=== PATIENT | male | born 1960 | race Caucasian/White ===

== ENCOUNTER 2019-06-19 12:41 | Inpatient (IN) | payer OTHER ==
--- NOTE | 2019-06-19 13:43 | PDOC ---
History of Present Illness - General Chief Complaint: Wound Stated Complaint: SENT FOR ADMISSION Time Seen by Provider: 06/19/19 13:06 History Source: Patient, Other (Paperwork from Podiatry clinic) Exam Limitations: No Limitations - History of Present Illness Initial Comments: HPI: 58 y/o male presenting to [facility] ER from podiatry clinic of [facility] for admission for osteomyelitis of right third toe. Pt states its getting worse. Denies systemc infectious symptoms. Has completed two week outpatient course of Ciprofloxacin and Clindamycin without improvement. Pt has no established relationship with any providers within the [facility] system. Recently moved to this area. Previous care was established at hospital in [place]. Medical Hx: - Diabetic, managed with Metformin and Glimepiride - HTN - HLD - Charcot R foot - S/p amputation of R first and second toe - S/p amputation of L second toe Review of Systems: In addition to that documented in the HPI above, the additional ROS was obtained : Constitutional: Denies fevers or chills ENMT: Denies sore throat CV: Denies chest pain Resp: Denies SOB GI: Denies vomiting or diarrhea : Denies dysuria, hematuria, or urinary frequency Physical Examination: Constitutional: Nontoxic adult male in no acute distress or obvious discomfort. Obese body habitus. Found semi-fowlers on hospital bed. Alert and oriented x4. Answered all questions appropriately and completely. Speech was non-labored, non -pressured. Head: Normocephalic. No obvious external signs of trauma. Cardiovascular / Chest: Regular rate and regular rhythm. No murmur, rubs, clicks , or gallops. Peripheral pulses: radial pulses full. Respiratory: Breathing unlabored. Equal chest rise and fall. Clear to auscultation bilaterally. No stridor, no wheezing, no rhonchi. Neuro: Alert and oriented. Moving all four extremities spontaneously. Skin/ MSK: Approx. 1cm x 1cm wound to lateral aspect of R 3rd toe with purulent discharge. Approx. 4cm x 2cm wound to lateral aspect of R foot with devitalized tissue surrounding; no discharge or surrounding erythema. S/p R 1st and 2nd toe amputation. S/p L 2nd toe amputation. Globally, skin is warm and dry. Psych: Affect: appropriate. Mood: normal. MDM: *Reviewed vital signs, nursing notes, and prior visit documentation (if available). 58 y/o male presenting from podiatry clinic for right 3rd toe infection concerning for osteomyelitis. Failed outpatient abx therapy. Afebrile orally. Vitals unremarkable for hypotension or tachycardia. Physical exam as described above. CRP elevated. CBC unremarkable for leukocytosis. Started Vancomycin and Meropenem. Pt has penicillin allergy. 14:[address] Stokes. Verbally appraised of the pts HPI, ED course, and current plan of management. Requested Greta Garcia, and Natanael consulted on the case. Will evaluate the pt this evening. 14:[address] Santoyo through office staff. Awaiting call back. 15:[address] Santoyo through office staff. Awaiting call back. 15:[address] Lin cell phone for admission. Awaiting call back. 16:[address] Santoyo. Verbally appraised of the pts HPI, ED course, and current plan of management. Will admit pt to med/surg. No additional orders requested. Uche Liriano M.D., PGY2 Emergency Medicine Resident Past History - Past Medical History Allergies/Adverse Reactions: Allergies Allergy/AdvReac Type Severity Reaction Status Date / Time Penicillins Allergy Severe Difficulty Verified 06/19/19 13:01 Breathing COPD: No Diabetes: Yes HTN: Yes - Suicide/Smoking/Psychosocial Hx Smoking History: Former smoker Have you smoked in the past 12 months: No Information on smoking cessation initiated: No Hx Alcohol Use: No Drug/Substance Use Hx: No *Physical Exam - Vital Signs Last Vital Signs Temp Pulse Resp BP Pulse Ox 99.2 F 99 H 20 161/92 100 06/19/19 12:57 06/19/19 12:57 06/19/19 12:57 06/19/19 12:57 06/19/19 12:57 ED Treatment Course - LABORATORY CBC & Chemistry Diagram: 06/19/19 13:40 06/19/19 13:40 - RADIOLOGY Radiology Studies Ordered: Category Date Time Status CHEST PA & LAT [RAD] Stat Radiology 06/19/19 13:20 Ordered *DC/Admit/Observation/Transfer Diagnosis at time of Disposition: Diabetic infection of right foot - Discharge Dispostion Condition at time of disposition: Stable Decision to Admit order: Yes - Referrals - Patient Instructions - Post Discharge Activity
[2019-06-19 14:06] LABS: BASO % 0.9 % (0-2.0); EOS % 2.2 % (0-4.5); HEMATOCRIT 38.8 % (35.4-49); HEMOGLOBIN 13.3 GM/dL (11.7-16.9); MCH 28.2 pg (25.7-33.7); MCHC 34.1 g/dl (32.0-35.9); MEAN CELL VOLUME 82.7 fl (80-96); MEAN PLT VOLUME 7.5 fl (7.5-11.1); MONO % 7.6 % (3.8-10.2); NEUT % 63.3 % (42.8-82.8); RBC 4.69 M/mm3 (4.00-5.60); RDW 13.6 % (11.9-15.9); WHITE BLOOD COUNT 7.3 K/mm3 (4.0-10.0)
[2019-06-19] MEDS ORDERED: VANCOMYCIN HCL 1,500 MG in DEXTROSE 5%-WATER - 500 ML IVPB ONE (14:14)
[2019-06-19] MEDS ORDERED: MEROPENEM 1 GM in DEXTROSE 5%-WATER 100 ML IVPB ONE (14:14)
[2019-06-19 14:28] LABS: INR 1.02 (0.83-1.09)
[2019-06-19 14:31] LABS: ALBUMIN 3.6 g/dl (3.4-5.0); BILIRUBIN,TOTAL 0.4 mg/dL (0.2-1); BLOOD UREA NITROGEN 23.6 mg/dL (7-18); CALCIUM 9.5 mg/dL (8.5-10.1); CREATININE 1.1 mg/dL (0.55-1.3); PLATELET COUNT 377 K/MM3 (134-434); POTASSIUM 4.7 mmol/L (3.5-5.1); TOT PROT 7.2 g/dl (6.4-8.2)
[2019-06-19] MEDS ORDERED: VANCOMYCIN HCL 1,500 MG in SODIUM CHLORIDE 500 ML IVPB ONE (15:15)
--- NOTE | 2019-06-19 16:59 | PDOC ---
Documentation entered by Kamini García SCRIBE, acting as scribe for Dewayne Jaime MD. Dewayne Jaime MD: This documentation has been prepared by the bashiribe, Kamini García SCRIBE, under my direction and personally reviewed by me in its entirety. I confirm that the documentation accurately reflects all work, treatment, procedures, and medical decision making performed by me. Attending Attestation - Resident Resident Name: Uche Liriano - ED Attending Attestation I have performed the following: I have examined & evaluated the patient, The case was reviewed & discussed with the resident, I agree w/resident's findings & plan, Exceptions are as noted - HPI HPI: 06/19/19 14:26 The patient is a 58-year-old male, with a past medical history of HTN and DM, who was sent to the ED with by his Edger Hand (Dr. Lerma) for admission for osteomyelitis of the RT 2nd toe with exposed bone. Allergies: Penicillins - Physicial Exam PE: Patient is awake and alert, obese, No distress Normocephalic and atraumatic PERRLA, EOMI CTA RRR + Right foot: 1 cm wound to the third toe draining purulent discharge consistent with osteomyelitis; devitalized tissue to the lateral aspect of the right foot appears to be necrotic; status post left second toe amputation; distal pulses decreased bilaterally - Medical Decision Making 06/19/19 16:58 58-year-old male with multiple comorbidities, history of previous toe amputations presents with signs and symptoms of acute osteomyelitis. ESR and CRP elevated. Blood cultures obtained. We'll cover with broad-spectrum antibiotics. Will admit with ID and podiatry consultation.
--- NOTE | 2019-06-19 18:28 | CONSULT ---
Consult Consult Specialty:: Podiatry Reason for Consultation:: Wound right foot - History of Present Illness Chief Complaint: Patient states that his doctor Florentin stated that the 3rd toe must go on right foot. States he trusts her Judgement more than mine. 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 Patient told me his Doctor is on iiko which has gone to the "dogs " he stated. She is trying to get on staff here. History of Present Illness: 58 y/o male presenting to [facility] ER from podiatry clinic of [facility] for admission for osteomyelitis of right toe most likely the 2nd eventhough patient stating 3rd. . Pt states its getting worse. Denies systemc infectious symptoms. Has completed two week outpatient course of Ciprofloxacin and Clindamycin without improvement. - Alcohol/Substance Use Hx Alcohol Use: No - Smoking History Smoking history: Former smoker Have you smoked in the past 12 months: No Home Medications - Allergies Allergies/Adverse Reactions: Allergies Allergy/AdvReac Type Severity Reaction Status Date / Time Penicillins Allergy Severe Difficulty Verified 06/19/19 13:01 Breathing - Home Medications Home Medications: Ambulatory Orders Aspirin [ASA -] 81 mg PO DAILY 06/19/19 Glimepiride 4 mg PO DAILY 06/19/19 Lisinopril 10 mg PO DAILY 06/19/19 Metformin HCl [Glucophage] 1,000 mg PO BID 06/19/19 Pravastatin Sodium 20 mg PO DAILY 06/19/19 Physical Exam Vital Signs: Vital Signs Temperature 98.6 F 06/19/19 17:04 Pulse Rate 105 H 06/19/19 17:04 Respiratory Rate 12 06/19/19 17:04 Blood Pressure 104/77 06/19/19 17:04 O2 Sat by Pulse Oximetry (%) 95 06/19/19 17:04 Extremities: Yes: Other (weakly palpable pulses right foot, +open wound lateral right most medial toe it appears that is his second toe, no wound on 3rd or 4th , missing lateral aspect of foot and part of medial aspect of foot, -gangarene, warm right foot, missing toe left foot as well, +grade 3 wound laterlal right foot with drainage noted) Labs: CBC, BMP 06/19/19 13:40 06/19/19 13:40 Assessment/Plan om right foot toe and or midfoot lateral area deformed right foot r/o pvd Consult ID for abx. Consult Dr. Stallworth for vascular work up and treatment. Xray ordered. Will order MRI as well. HBO consult as well. Will decide tx after xray, mri and vascular and ID input. Patient insisting needs his 3rd toe amputated.
[2019-06-19] MEDS: COLLAGENASE CLOSTRIDIUM HIST. 30 GRAMS TUBE TP SCH (19:50)
[2019-06-19] MEDS ORDERED: diazePAM 2 MG TABLET PO ONE (20:14)
[2019-06-19] MEDS ORDERED: diazePAM 2 MG TABLET ONE (20:16)
[2019-06-19] MEDS ORDERED: VANCOMYCIN 1 GM in D5W (PRE-DOCKED) 1,000 MG/250 ML IVPB SCH (22:00)
--- NOTE | 2019-06-19 23:30 | EKG ---
Test Reason : Blood Pressure : / mmHG Vent. Rate : 107 BPM Atrial Rate : 107 BPM P-R Int : 136 ms QRS Dur : 130 ms QT Int : 348 ms P-R-T Axes : 036 137 026 degrees QTc Int : 464 ms SINUS TACHYCARDIA INDETERMINATE AXIS RIGHT BUNDLE BRANCH BLOCK CANNOT RULE OUT INFERIOR INFARCT , AGE UNDETERMINED ABNORMAL ECG NO PREVIOUS ECGS AVAILABLE Confirmed by ROSS ROJO MD ([id number]) on 06/19/2019 11:30:33 PM Referred By: Confirmed By:ROSS ROJO MD
--- NOTE | 2019-06-19 23:34 | HP ---
Admitting History and Physical - Admission History of Present Illness: Pt is a 58 y/o male w/ PMH significant for HTN, HLD, diabetes, charcot RT foot and history of amputation of Lt 3rd toe/rt 1st/2nd toes. Pt now presents to [facility] ER from podiatry clinic of [facility] for admission for osteomyelitis of right third toe. Pt states its getting worse. Denies systemc infectious symptoms. Has completed two week outpatient course of Ciprofloxacin and Clindamycin without improvement. - Past Medical History Cardiovascular: Yes: HTN, Hyperlipdemia Rheumatology: Yes: Other (charcot rt foot) Endocrine: Yes: Diabetes Mellitus - Past Surgical History Additional Past Surgical History: Amputations lt 3rd toe and Rt 1st/2nd toes - Smoking History Smoking history: Former smoker Have you smoked in the past 12 months: No - Alcohol/Substance Use Hx Alcohol Use: No Home Medications - Allergies Allergies/Adverse Reactions: Allergies Allergy/AdvReac Type Severity Reaction Status Date / Time Penicillins Allergy Severe Difficulty Verified 06/19/19 13:01 Breathing - Home Medications Home Medications: Ambulatory Orders Aspirin [ASA -] 81 mg PO DAILY 06/19/19 Glimepiride 4 mg PO DAILY 06/19/19 Lantus 20 units HS 06/19/19 Lisinopril 10 mg PO DAILY 06/19/19 Metformin HCl [Glucophage] 1,000 mg PO BID 06/19/19 Pravastatin Sodium 20 mg PO DAILY 06/19/19 Family Disease History - Family Disease History Family History: Unremarkable Review of Systems - Review of Systems Constitutional: reports: No Symptoms Eyes: reports: No Symptoms HENT: reports: No Symptoms Neck: reports: No Symptoms Cardiovascular: reports: No Symptoms Respiratory: reports: No Symptoms Gastrointestinal: reports: No Symptoms Genitourinary: reports: No Symptoms Physical Examination Vital Signs: Vital Signs Temperature 98.6 F 06/19/19 17:04 Pulse Rate 90 06/19/19 20:33 Respiratory Rate 20 06/19/19 20:33 Blood Pressure 142/90 06/19/19 20:33 O2 Sat by Pulse Oximetry (%) 97 06/19/19 20:33 Constitutional: Yes: Well Nourished, Obese Eyes: Yes: WNL HENT: Yes: WNL Neck: Yes: WNL, Supple Cardiovascular: Yes: WNL, Regular Rate and Rhythm Respiratory: Yes: WNL, Regular, CTA Bilaterally Gastrointestinal: Yes: WNL, Normal Bowel Sounds, Soft Extremities: Yes: Other (Lt 3rd toe amputations Rt 1st/2nd toe amputation Rt 3rd toe w/ ulcer) Edema: No Labs: CBC, BMP 06/19/19 13:40 06/19/19 13:40 Problem List - Problems (1) Diabetic infection of right foot Assessment/Plan: Cont IV antibxs Monitor cultures ID/Podiatry consults F/U MRI rt foot to r/o osteomyelitis Code(s): E11.628 - TYPE 2 DIABETES MELLITUS WITH OTHER SKIN COMPLICATIONS; L08.9 - LOCAL INFECTION OF THE SKIN AND SUBCUTANEOUS TISSUE, UNSP (2) HTN (hypertension) Assessment/Plan: BP stable Cont asa/lisinopril Code(s): I10 - ESSENTIAL (PRIMARY) HYPERTENSION (3) HLD (hyperlipidemia) Assessment/Plan: Cont lipitor Code(s): E78.5 - HYPERLIPIDEMIA, UNSPECIFIED (4) Diabetes Assessment/Plan: Cont levemir/amaryl/metformin Cont sliding scale w/ coverage Code(s): E11.9 - TYPE 2 DIABETES MELLITUS WITHOUT COMPLICATIONS
[2019-06-19] MEDS: HEPARIN NA (PORCINE) 5,000 UNITS/ML 1ML VIAL SQ SCH (23:39)
[2019-06-19] MEDS: INSULIN (LEVEMIR) 100 UNITS/ML UNITS SQ SCH (23:39)
[2019-06-19] MEDS: ATORVASTATIN CA 20 MG TABLET (FP) PO SCH (23:39)
[2019-06-19] MEDS: INSULIN SLIDING SCALE (NOVOLOG) 1 VIAL SQ SCH (23:40)
[2019-06-20] MEDS: VANCOMYCIN 1 GM in D5W (PRE-DOCKED) 1,000 MG/250 ML IVPB SCH ×2 (00:27→09:06)
[2019-06-20] MEDS ORDERED: MEROPENEM 1 GM in DEXTROSE 5%-WATER 100 ML IVPB SCH (02:00)
[2019-06-20] MEDS ORDERED: MEROPENEM 1 GM VIAL (RESTRICTED TO ID) IVPB ONE ×2 (02:02→08:58)
[2019-06-20] MEDS ORDERED: DEXTROSE 5%-WATER 100 ML IVPB ONE ×2 (02:02→08:58)
[2019-06-20] MEDS: MEROPENEM 1 GM in DEXTROSE 5%-WATER 100 ML IVPB SCH ×2 (02:09→09:06)
[2019-06-20] MEDS: INSULIN SLIDING SCALE (NOVOLOG) 1 VIAL SQ SCH ×4 (06:57→21:36)
[2019-06-20 07:54] LABS: BASO % 0.8 % (0-2.0); EOS % 2.9 % (0-4.5); HEMATOCRIT 36.1 % (35.4-49); HEMOGLOBIN 12.3 GM/dL (11.7-16.9); LYMPH % 30.7 % (8-40); MCH 28.3 pg (25.7-33.7); MEAN CELL VOLUME 83.2 fl (80-96); MEAN PLT VOLUME 7.7 fl (7.5-11.1); MONO % 9.1 % (3.8-10.2); NEUT % 56.5 % (42.8-82.8); PLATELET COUNT 306 K/MM3 (134-434); RBC 4.34 M/mm3 (4.00-5.60); RDW 13.5 % (11.9-15.9); WHITE BLOOD COUNT 6.9 K/mm3 (4.0-10.0)
[2019-06-20 08:29] LABS: ALBUMIN 3.1 g/dl (3.4-5.0); BILIRUBIN,TOTAL 0.4 mg/dL (0.2-1); BLOOD UREA NITROGEN 21.6 mg/dL (7-18); CALCIUM 8.9 mg/dL (8.5-10.1); CREATININE 0.9 mg/dL (0.55-1.3); POTASSIUM 4.2 mmol/L (3.5-5.1); TOT PROT 6.3 g/dl (6.4-8.2)
[2019-06-20] MEDS ORDERED: PT OWN MED DRAWER 7, Y5N ONE (09:00)
[2019-06-20] MEDS: GLIMEPIRIDE 4 MG TABLET (FP) PO SCH (09:05)
[2019-06-20] MEDS: HEPARIN NA (PORCINE) 5,000 UNITS/ML 1ML VIAL SQ SCH ×2 (09:05→21:38)
[2019-06-20] MEDS: LISINOPRIL 10 MG TABLET (FP) PO SCH (09:06)
[2019-06-20] MEDS: metFORMIN HCL 500 MG TABLET (FP) PO SCH ×2 (09:06→17:44)
[2019-06-20] MEDS: ASPIRIN 81 MG CHEWABLE TABLETS PO SCH (09:06)
[2019-06-20] MEDS: COLLAGENASE CLOSTRIDIUM HIST. 30 GRAMS TUBE TP SCH (09:16)
--- NOTE | 2019-06-20 09:35 | CON.ID ---
Consult Consult Specialty:: infectious diseases Referred by:: Reason for Consultation:: r/o osteo of the rt foot - History of Present Illness Chief Complaint: rt foot infection - Alcohol/Substance Use Hx Alcohol Use: Yes (occassionally) - Smoking History Smoking history: Former smoker Have you smoked in the past 12 months: No Home Medications - Allergies Allergies/Adverse Reactions: Allergies Allergy/AdvReac Type Severity Reaction Status Date / Time Penicillins Allergy Severe Difficulty Verified 06/19/19 13:01 Breathing - Home Medications Home Medications: Ambulatory Orders Aspirin [ASA -] 81 mg PO DAILY 06/19/19 Glimepiride 4 mg PO DAILY 06/19/19 Lantus 20 units HS 06/19/19 Lisinopril 10 mg PO DAILY 06/19/19 Metformin HCl [Glucophage] 1,000 mg PO BID 06/19/19 Pravastatin Sodium 20 mg PO DAILY 06/19/19 Physical Exam Vital Signs: Vital Signs Temperature 98.0 F 06/20/19 09:18 Pulse Rate 85 06/20/19 09:18 Respiratory Rate 19 06/20/19 09:18 Blood Pressure 150/76 06/20/19 09:18 O2 Sat by Pulse Oximetry (%) 97 06/19/19 20:33 Labs: CBC, BMP 06/20/19 06:25 06/20/19 06:25
--- NOTE | 2019-06-20 13:08 | PN ---
Progress Note (short form) - Note Progress Note: Vascular surgery Asked to evaluate patient for right 3rd toe ulcer/infection Patient seen and examined at bedside with Dr Stallworth. 58 y/o male presented to [facility] ER from podiatry clinic of [facility] for admission for osteomyelitis of right third toe. Pt states its getting worse. Denies systemc infectious symptoms. Has completed two week outpatient course of Ciprofloxacin and Clindamycin without improvement. Vital Signs Temp 98.0 F 06/20/19 09:18 Pulse 85 06/20/19 09:18 Resp 19 06/20/19 09:18 BP 150/76 06/20/19 09:18 Pulse Ox 97 06/19/19 20:33 Intake & Output 06/19/19 06/20/19 06/20/19 23:59 11:59 23:59 Intake Total 400 240 Balance 400 240 Weight 275 lb 275 lb Intake: Oral 400 240 Other: Voiding Method Toilet # Unmeasured Voids Void 1 Bowel Movement No Height 6 ft 2.5 in 6 ft 2.5 in Body Mass Index (BMI) 34.8 34.8 Weight Measurement Method Est/Stated by Patient CBC, BMP 06/20/19 06:25 06/20/19 06:25 PE: A&Ox3, NAD Unlabored resp on RA Extremities: diminished but palpable pulses right foot, small stage 2 ulcer at the right toe extending into the web space between the 3rd and 4th toes with no significant d/c or foul odor. He is missing his 1st and 2nd toes s/p amputation that are well healed. Stage 2 ulcer over the lateral aspect of his foot @ [id number], clean with fibrinous base, no significant d/c or foul odor. palpable DP pulse B/L LE compartments soft, supple and non-tender to palpation MRI Right LE: Abnormal signal in the proximal phalanx of the 3rd toe consistent with osteomyelitis Problem List - Problems (1) Osteomyelitis of ankle and foot Assessment/Plan: 58 yo male with Osetomyelitis of right 3rd toe in the setting of multiple stable DM foot ulcers. We discussed the diagnosis and treatment options with the patient. Although we have recommended conservative measures treating the OM with IV ABX and with ulcers with local wound care, the patient is adamant that he have this toe amputated. He is cleared from a vascular standpoint and may proceed with podiatry management/treatment as they see fit. 1) apply bacitracin to right foot wounds and cover with clean, dry dressing daily 2) off load pressure sensitive areas 3) fall risk 4) refer to Podiatry for further care 5) IV ABX per ID 6) re-consult vascular PRN Code(s): M86.9 - OSTEOMYELITIS, UNSPECIFIED
[2019-06-20] MEDS: VANCOMYCIN HCL 1,250 MG in DEXTROSE 5%-WATER - 250 ML IVPB SCH (13:25)
[2019-06-20] MEDS: BACITRACIN 15 GM TUBE TOPICAL OINTMENT TP SCH (13:42)
--- NOTE | 2019-06-20 16:16 | PN ---
Progress Note (short form) - Note Progress Note: FUV right foot. vss +om 3rd toe right on mri, +grade 3 wound, +drainage OM 3rd toe right Reviewed MRI and discussed with radiologist. Pt fully understands all risks benefits and alternatives. Consented to debridement of bone and soft tissue right foot and amputation 3rd toe. Suggested amputation of 4&5 due poor position and future wounds on those toes. Patient understood. Only wants 3rd toe amputated will take his chances with other 2 toes. Patient is scheduled for 3pm tomorrow. Please maximize for OR. Discussed with Dr. Stallworth and he has cleared patient at this point will put note in chart. NPO after midnight.
[2019-06-20] MEDS: ATORVASTATIN CA 20 MG TABLET (FP) PO SCH (21:37)
[2019-06-20] MEDS: INSULIN (LEVEMIR) 100 UNITS/ML UNITS SQ SCH (21:37)
[2019-06-20] MEDS ORDERED: ATORVASTATIN CA 10 MG TABLET (FP) PO SCH (22:00)
--- NOTE | 2019-06-20 22:35 | PN ---
Progress Note, Physician History of Present Illness: Pt opting for amputation rt 3rd toe - Current Medication List Current Medications: Active Medications Aspirin (Asa -) 81 mg PO DAILY [facility] Last Admin: 06/20/19 09:06 Dose: 81 mg Atorvastatin Calcium (Lipitor -) 20 mg PO HS [facility] Last Admin: 06/20/19 21:37 Dose: 20 mg Bacitracin (Bacitracin -) 1 applic TP DAILY [facility] Last Admin: 06/20/19 13:42 Dose: 1 applic Collagenase (Santyl -) 1 applic TP DAILY [facility]; Protocol Last Admin: 06/20/19 09:16 Dose: 1 applic Glimepiride (Amaryl -) 4 mg PO DAILY@0700 [facility] Last Admin: 06/20/19 09:05 Dose: 4 mg Heparin Sodium (Porcine) (Heparin -) 5,000 unit SQ BID [facility] Last Admin: 06/20/19 21:38 Dose: 5,000 unit Vancomycin HCl 1,250 mg/ (Dextrose) 250 mls @ 166.667 mls/hr IVPB DAILY@1100 [facility]; Protocol Last Admin: 06/20/19 13:25 Dose: 166.667 mls/hr Insulin Aspart (Novolog Vial Sliding Scale -) 1 vial SQ [facility]; Protocol Last Admin: 06/20/19 21:36 Dose: Not Given Insulin Detemir (Levemir Vial) 20 units SQ [facility] Last Admin: 06/20/19 21:37 Dose: Not Given Lisinopril (Prinivil) 10 mg PO DAILY [facility] Last Admin: 06/20/19 09:06 Dose: 10 mg Metformin [facility] ([facility]ophage -) [facility] Last Admin: 06/20/19 17:44 Dose: 1,000 mg - Objective Vital Signs: Vital Signs Temperature 98.4 F 06/20/19 21:42 Pulse Rate 75 06/20/19 21:42 Respiratory Rate 20 06/20/19 21:42 Blood Pressure 135/78 06/20/19 21:42 O2 Sat by Pulse Oximetry (%) 97 06/20/19 09:00 Constitutional: Yes: Well Nourished, Obese Eyes: Yes: WNL HENT: Yes: WNL Neck: Yes: WNL, Supple Cardiovascular: Yes: WNL, Regular Rate and Rhythm Respiratory: Yes: WNL, Regular, CTA Bilaterally Gastrointestinal: Yes: WNL, Normal Bowel Sounds, Soft, Abdomen, Obese Extremities: Yes: Other (Rt 3rd toe ulcer) Labs: CBC, BMP 06/20/19 06:25 06/20/19 06:25 INR, PTT INR 1.02 (0.83-1.09) 06/19/19 13:55 Problem List - Problems (1) Diabetic infection of right foot Assessment/Plan: Cont IV vanco Monitor cultures MRI Rt foot shows osteomyelitis Pt scheduled for amputation rt 3rd toe in am Pt is medically cleared for surgery Code(s): E11.628 - TYPE 2 DIABETES MELLITUS WITH OTHER SKIN COMPLICATIONS; L08.9 - LOCAL INFECTION OF THE SKIN AND SUBCUTANEOUS TISSUE, UNSP (2) HTN (hypertension) Assessment/Plan: BP stable Cont asa/lisinopril Code(s): I10 - ESSENTIAL (PRIMARY) HYPERTENSION (3) HLD (hyperlipidemia) Assessment/Plan: Cont lipitor Code(s): E78.5 - HYPERLIPIDEMIA, UNSPECIFIED (4) Diabetes Assessment/Plan: Cont levemir/amaryl/metformin Cont sliding scale w/ coverage Code(s): E11.9 - TYPE 2 DIABETES MELLITUS WITHOUT COMPLICATIONS
[2019-06-21] MEDS: GLIMEPIRIDE 4 MG TABLET (FP) PO SCH (06:23)
[2019-06-21] MEDS: INSULIN SLIDING SCALE (NOVOLOG) 1 VIAL SQ SCH ×4 (06:23→22:05)
[2019-06-21] MEDS: metFORMIN HCL 500 MG TABLET (FP) PO SCH ×2 (06:23→18:08)
[2019-06-21 07:11] LABS: BASO % 0.6 % (0-2.0); HEMATOCRIT 36.7 % (35.4-49); HEMOGLOBIN 12.8 GM/dL (11.7-16.9); LYMPH % 25.4 % (8-40); MCHC 34.9 g/dl (32.0-35.9); MEAN PLT VOLUME 7.6 fl (7.5-11.1); MONO % 8.4 % (3.8-10.2); NEUT % 62.6 % (42.8-82.8); PLATELET COUNT 290 K/MM3 (134-434); RBC 4.42 M/mm3 (4.00-5.60); RDW 13.5 % (11.9-15.9); WHITE BLOOD COUNT 7.4 K/mm3 (4.0-10.0)
[2019-06-21 07:28] LABS: ALBUMIN 3.1 g/dl (3.4-5.0); BILIRUBIN,TOTAL 0.5 mg/dL (0.2-1); BLOOD UREA NITROGEN 21.6 mg/dL (7-18); CALCIUM 8.8 mg/dL (8.5-10.1); POTASSIUM 4.3 mmol/L (3.5-5.1); TOT PROT 6.4 g/dl (6.4-8.2)
[2019-06-21] MEDS ORDERED: VANCOMYCIN HCL 1,250 MG in DEXTROSE 5%-WATER - 250 ML IVPB SCH (10:00)
--- NOTE | 2019-06-21 10:36 | PN ---
Progress Note, Physician History of Present Illness: stable doing well - Current Medication List Current Medications: Active Medications Aspirin (Asa -) 81 mg PO DAILY [facility] Last Admin: 06/20/19 09:06 Dose: 81 mg Atorvastatin Calcium (Lipitor -) 20 mg PO HS [facility] Last Admin: 06/20/19 21:37 Dose: 20 mg Bacitracin (Bacitracin -) 1 applic TP DAILY [facility] Last Admin: 06/20/19 13:42 Dose: 1 applic Collagenase (Santyl -) 1 applic TP DAILY [facility]; Protocol Last Admin: 06/20/19 09:16 Dose: 1 applic Glimepiride (Amaryl -) 4 mg PO DAILY@0700 [facility] Last Admin: 06/21/19 06:23 Dose: Not Given Heparin Sodium (Porcine) (Heparin -) 5,000 unit SQ BID [facility] Last Admin: 06/20/19 21:38 Dose: 5,000 unit Vancomycin HCl 1,250 mg/ (Dextrose) 250 mls @ 166.667 mls/hr IVPB DAILY@1100 [facility]; Protocol Last Admin: 06/20/19 13:25 Dose: 166.667 mls/hr Insulin Aspart (Novolog Vial Sliding Scale -) 1 vial SQ [facility]; Protocol Last Admin: 06/21/19 06:23 Dose: Not Given Insulin Detemir (Levemir Vial) 20 units SQ [facility] Last Admin: 06/20/19 21:37 Dose: Not Given Lisinopril (Prinivil) 10 mg PO DAILY [facility] Last Admin: 06/20/19 09:06 Dose: 10 mg Met[facility] Last Admin: 06/21/19 06:23 Dose: Not Given - Objective Vital Signs: Vital Signs Temperature 97.8 F 06/21/19 06:00 Pulse Rate 63 06/21/19 06:00 Respiratory Rate 20 06/21/19 06:00 Blood Pressure 113/65 06/21/19 06:00 O2 Sat by Pulse Oximetry (%) 98 06/20/19 21:00 Constitutional: Yes: No Distress, Calm Cardiovascular: Yes: S1, S2 Respiratory: Yes: Regular, CTA Bilaterally Gastrointestinal: Yes: Normal Bowel Sounds, Soft Musculoskeletal: Yes: WNL Extremities: Yes: Other Neurological: Yes: Alert, Oriented Psychiatric: Yes: Alert, Oriented Labs: CBC, BMP 06/21/19 06:40 06/21/19 06:40 INR, PTT INR 1.02 (0.83-1.09) 06/19/19 13:55 Assessment/Plan Problem List - Problems (1) Diabetic infection of right foot Code(s): E11.628 - TYPE 2 DIABETES MELLITUS WITH OTHER SKIN COMPLICATIONS; L08.9 - LOCAL INFECTION OF THE SKIN AND SUBCUTANEOUS TISSUE, UNSP (2) HTN (hypertension) Code(s): I10 - ESSENTIAL (PRIMARY) HYPERTENSION (3) HLD (hyperlipidemia) Code(s): E78.5 - HYPERLIPIDEMIA, UNSPECIFIED (4) Diabetes Code(s): E11.9 - TYPE 2 DIABETES MELLITUS WITHOUT COMPLICATIONS 5 osteo of the foot plan await for podiatry plan continue abx once final plan is made then will decide
[2019-06-21] MEDS: HEPARIN NA (PORCINE) 5,000 UNITS/ML 1ML VIAL SQ SCH (11:32)
[2019-06-21] MEDS: ASPIRIN 81 MG CHEWABLE TABLETS PO SCH (11:35)
[2019-06-21] MEDS: LISINOPRIL 10 MG TABLET (FP) PO SCH (11:35)
[2019-06-21] MEDS: VANCOMYCIN HCL 1,250 MG in DEXTROSE 5%-WATER - 250 ML IVPB SCH (13:00)
[2019-06-21] MEDS: COLLAGENASE CLOSTRIDIUM HIST. 30 GRAMS TUBE TP SCH (13:11)
[2019-06-21] MEDS: BACITRACIN 15 GM TUBE TOPICAL OINTMENT TP SCH (13:12)
[2019-06-21] MEDS ORDERED: LIDOCAINE HCL 1%, 10 MG/ML (20ML VIAL) ONE (15:35)
[2019-06-21] MEDS ORDERED: BUPIVACAINE HCL/PF 0.25% (2.5MG/ML) 10 ML VIAL ONE (15:36)
[2019-06-21] MEDS ORDERED: MIDAZOLAM HCL 2 MG/2 ML SINGLE DOSE VIAL ONE ×2 (16:03→16:21)
[2019-06-21] MEDS ORDERED: PROPOFOL 20 ML ONE (16:03)
[2019-06-21] MEDS ORDERED: BUPIVACAINE HCL/PF 0.25% (2.5MG/ML) 10 ML VIAL IJ ONE (16:11)
--- NOTE | 2019-06-21 17:01 | OP ---
Operative Note - Note: Operative Date: 06/21/19 Pre-Operative Diagnosis: osteomyelitis 3rd toe right foot Operation: amputation 3rd toe right with debridement of infected tissue and bone culture, retention sutures with 1/4"inch iodoform packing Findings: fractured proximal phalanx due to infection Implants: non Post-Operative Diagnosis: Same as Pre-op Surgeon: Karan Stokes Anesthesiologist/TELEMETRY REGISTERED NURSE: Hanane Pedraza Specimens Removed: bone soft tissue Estimated Blood Loss (mls): 10 Instrument used (Debridements only): scalpel, double action bone cutter Operative Report Dictated: No
[2019-06-21] MEDS ORDERED: INSULIN (NOVOLOG) ASPART 100 UNITS/ML 10ML VIAL ONE (21:58)
[2019-06-21] MEDS: INSULIN (LEVEMIR) 100 UNITS/ML UNITS SQ SCH (22:05)
[2019-06-21] MEDS: ATORVASTATIN CA 20 MG TABLET (FP) PO SCH (22:05)
--- NOTE | 2019-06-21 23:59 | PN ---
Progress Note, Physician History of Present Illness: Pt tolerated amputation - Current Medication List Current Medications: Active Medications Aspirin (Asa -) 81 mg PO DAILY [facility] Atorvastatin Calcium (Lipitor -) 20 mg PO HS [facility] Last Admin: 06/21/19 22:05 Dose: 20 mg Bacitracin (Bacitracin -) 1 applic TP DAILY [facility] Glimepiride (Amaryl -) 4 mg PO DAILY@0700 [facility] Vancomycin HCl 1,250 mg/ (Dextrose) 250 mls @ 166.667 mls/hr IVPB DAILY@1100 [facility]; Protocol Insulin Aspart (Novolog Vial Sliding Scale -) 1 vial SQ ACHS [facility]; Protocol Last Admin: 06/21/19 22:05 Dose: 4 unit Insulin Detemir (Levemir Vial) 20 units SQ [facility] Last Admin: 06/21/19 22:05 Dose: 20 unit Lisinopril (Prinivil) 10 mg PO DAILY [facility] Metformin HCl (Glucophage -) 1,000 mg PO BIDAC [facility] - Objective Vital Signs: Vital Signs Temperature 99.0 F 06/21/19 18:00 Pulse Rate 96 H 06/21/19 18:00 Respiratory Rate 20 06/21/19 18:30 Blood Pressure 135/89 06/21/19 18:30 O2 Sat by Pulse Oximetry (%) 95 06/21/19 18:00 Constitutional: Yes: Well Nourished Neck: Yes: WNL, Supple Cardiovascular: Yes: WNL, Regular Rate and Rhythm Respiratory: Yes: WNL, Regular, CTA Bilaterally Extremities: Yes: Other (Rt foot in dressing) Labs: CBC, BMP 06/21/19 06:40 06/21/19 06:40 INR, PTT INR 1.02 (0.83-1.09) 06/19/19 13:55 Problem List - Problems (1) Diabetic infection of right foot Assessment/Plan: Cont IV vanco MRI Rt foot shows osteomyelitis S/P amputation rt 3rd toe Code(s): E11.628 - TYPE 2 DIABETES MELLITUS WITH OTHER SKIN COMPLICATIONS; L08.9 - LOCAL INFECTION OF THE SKIN AND SUBCUTANEOUS TISSUE, UNSP (2) HTN (hypertension) Assessment/Plan: BP stable Cont asa/lisinopril Code(s): I10 - ESSENTIAL (PRIMARY) HYPERTENSION (3) HLD (hyperlipidemia) Assessment/Plan: Cont lipitor Code(s): E78.5 - HYPERLIPIDEMIA, UNSPECIFIED (4) Diabetes Code(s): E11.9 - TYPE 2 DIABETES MELLITUS WITHOUT COMPLICATIONS
[2019-06-22] MEDS ORDERED: PT OWN MED DRAWER 7, Y5N ONE ×2 (05:41→06:53)
[2019-06-22] MEDS: INSULIN SLIDING SCALE (NOVOLOG) 1 VIAL SQ SCH ×4 (06:36→23:07)
[2019-06-22] MEDS ORDERED: INSULIN (LEVEMIR) 100 UNITS/ML UNITS SQ ONE (06:52)
[2019-06-22] MEDS ORDERED: INSULIN (NOVOLOG) ASPART 100 UNITS/ML 10ML VIAL ONE ×2 (06:52→11:58)
--- NOTE | 2019-06-22 08:39 | PN ---
Progress Note (short form) - Note Progress Note: Anesthesia /Pain Pt seen and examined S:Alert and awake comfortable O: CBC, BMP 06/21/19 06:40 06/21/19 06:40 Vital Signs Temperature 97.9 F 06/22/19 06:00 Pulse Rate 67 06/22/19 06:00 Respiratory Rate 20 06/22/19 06:00 Blood Pressure 133/74 06/22/19 06:00 O2 Sat by Pulse Oximetry (%) 95 06/21/19 21:00 A/P: Current Active Problems Diabetes (Acute) Diabetic infection of right foot (Acute) HLD (hyperlipidemia) (Acute) HTN (hypertension) (Acute) Osteomyelitis of ankle and foot (Acute) s/p amp 3rd toe Doing well post op Continue current care Paul Mcnair MD
[2019-06-22] MEDS: GLIMEPIRIDE 4 MG TABLET (FP) PO SCH (08:48)
[2019-06-22] MEDS: metFORMIN HCL 500 MG TABLET (FP) PO SCH ×2 (08:48→18:29)
[2019-06-22] MEDS: ASPIRIN 81 MG CHEWABLE TABLETS PO SCH (09:27)
[2019-06-22] MEDS: LISINOPRIL 10 MG TABLET (FP) PO SCH (09:27)
[2019-06-22] MEDS: BACITRACIN 15 GM TUBE TOPICAL OINTMENT TP SCH (10:26)
[2019-06-22] MEDS: VANCOMYCIN HCL 1,250 MG in DEXTROSE 5%-WATER - 250 ML IVPB SCH (11:55)
--- NOTE | 2019-06-22 12:44 | PN ---
Progress Note (short form) - Note Progress Note: POD#1 vss +coapted, -drainage, -cellulitis, -mal odor, normal post op Betadine dressing change right foot distal aspect. Santyl lateral right foot. Dr. Anthony will change dressing on Monday. He is covering for me. ID saw foot with me. HBO when out patient. Discussed with ID Abx till dc. Xray ordered. Post op shoe. May go to bathroom with post op shoe and walker or cane. CBC with diff today.
--- NOTE | 2019-06-22 12:47 | PN ---
Progress Note, Physician History of Present Illness: post op doing well wound looks nice and clean - Current Medication List Current Medications: Active Medications Aspirin (Asa -) 81 mg PO DAILY [facility] Last Admin: 06/22/19 09:27 Dose: 81 mg Atorvastatin Calcium (Lipitor -) 20 mg PO HS [facility] Last Admin: 06/21/19 22:05 Dose: 20 mg Bacitracin (Bacitracin -) 1 applic TP DAILY [facility] Glimepiride (Amaryl -) 4 mg PO DAILY@0700 [facility] Last Admin: 06/22/19 08:48 Dose: 4 mg Vancomycin HCl 1,250 mg/ (Dextrose) 250 mls @ 166.667 mls/hr IVPB DAILY@1100 [facility]; Protocol Last Admin: 06/22/19 11:55 Dose: 166.667 mls/hr Insulin Aspart (Novolog Vial Sliding Scale -) 1 vial SQ [facility]; Protocol Last Admin: 06/22/19 12:15 Dose: 4 unit Insulin Detemir (Levemir Vial) 20 units SQ [facility] Last Admin: 06/21/19 22:05 Dose: 20 unit Lisinopril (Prinivil) 10 mg PO DAILY [facility] Last Admin: 06/22/19 09:27 Dose: 10 mg Metformin HCl (Glucophage -) 1,000 mg PO BIDAC [facility] Last Admin: 06/22/19 08:48 Dose: 1,000 mg - Objective Vital Signs: Vital Signs Temperature 98.6 F 06/22/19 09:29 Pulse Rate 81 06/22/19 09:29 Respiratory Rate 19 06/22/19 09:29 Blood Pressure 144/74 06/22/19 09:29 O2 Sat by Pulse Oximetry (%) 95 06/21/19 21:00 Constitutional: Yes: No Distress, Calm Cardiovascular: Yes: Regular Rate and Rhythm Respiratory: Yes: Regular, CTA Bilaterally Gastrointestinal: Yes: Normal Bowel Sounds, Soft Musculoskeletal: Yes: WNL Extremities: Yes: Other Wound/Incision: Yes: Clean/Dry Neurological: Yes: Alert, Oriented Psychiatric: Yes: Alert, Oriented Labs: CBC, BMP 06/21/19 06:40 06/21/19 06:40 INR, PTT INR 1.02 (0.83-1.09) 06/19/19 13:55 Assessment/Plan Problem List - Problems (1) Diabetic infection of right foot Code(s): E11.628 - TYPE 2 DIABETES MELLITUS WITH OTHER SKIN COMPLICATIONS; L08.9 - LOCAL INFECTION OF THE SKIN AND SUBCUTANEOUS TISSUE, UNSP (2) HTN (hypertension) Code(s): I10 - ESSENTIAL (PRIMARY) HYPERTENSION (3) HLD (hyperlipidemia) Code(s): E78.5 - HYPERLIPIDEMIA, UNSPECIFIED (4) Diabetes Code(s): E11.9 - TYPE 2 DIABETES MELLITUS WITHOUT COMPLICATIONS 5 osteo of the foot plan will check vanc trough continue abx await for cx reports then will decide
[2019-06-22 13:46] LABS: BASO % 0.9 % (0-2.0); EOS % 2.1 % (0-4.5); HEMATOCRIT 38.6 % (35.4-49); HEMOGLOBIN 13.5 GM/dL (11.7-16.9); LYMPH % 22.4 % (8-40); MCH 28.9 pg (25.7-33.7); MCHC 35.1 g/dl (32.0-35.9); MEAN CELL VOLUME 82.3 fl (80-96); MEAN PLT VOLUME 7.6 fl (7.5-11.1); MONO % 8.4 % (3.8-10.2); NEUT % 66.2 % (42.8-82.8); PLATELET COUNT 318 K/MM3 (134-434); RBC 4.69 M/mm3 (4.00-5.60); RDW 13.5 % (11.9-15.9); WHITE BLOOD COUNT 8.7 K/mm3 (4.0-10.0)
--- NOTE | 2019-06-22 22:17 | PN ---
Progress Note, Physician History of Present Illness: No new complaints - Current Medication List Current Medications: Active Medications Aspirin (Asa -) 81 mg PO DAILY [facility] Last Admin: 06/22/19 09:27 Dose: 81 mg Atorvastatin Calcium (Lipitor -) 20 mg PO [facility] Last Admin: 06/21/19 22:05 Dose: 20 mg Bacitracin (Bacitracin -) 1 applic TP DAILY [facility] Last Admin: 06/22/19 10:26 Dose: Not Given Glimepiride (Amaryl -) 4 mg PO DAILY@0700 [facility] Last Admin: 06/22/19 08:48 Dose: 4 mg Vancomycin HCl 1,250 mg/ (Dextrose) 250 mls @ 166.667 mls/hr IVPB DAILY@1100 [facility]; Protocol Last Admin: 06/22/19 11:55 Dose: 166.667 mls/hr Insulin Aspart (Novolog Vial Sliding Scale -) 1 vial SQ [facility]; Protocol Last Admin: 06/22/19 17:31 Dose: Not Given Insulin Detemir (Levemir Vial) 20 units SQ [facility] Last Admin: 06/21/19 22:05 Dose: 20 unit Lisinopril (Prinivil) 10 mg PO DAILY [facility] Last Admin: 06/22/19 09:27 Dose: 10 mg Metformin HCl (Glucophage -) 1,000 mg PO BIDAC [facility] Last Admin: 06/22/19 18:29 Dose: 1,000 mg - Objective Vital Signs: Vital Signs Temperature 98.3 F 06/22/19 18:00 Pulse Rate 95 H 06/22/19 18:00 Respiratory Rate 20 06/22/19 18:00 Blood Pressure 122/83 06/22/19 18:00 O2 Sat by Pulse Oximetry (%) 95 06/22/19 09:00 Constitutional: Yes: Well Nourished Neck: Yes: WNL, Supple Cardiovascular: Yes: WNL, Regular Rate and Rhythm Respiratory: Yes: WNL, Regular, CTA Bilaterally Gastrointestinal: Yes: WNL, Normal Bowel Sounds, Soft Extremities: Yes: Other (RT in dressing) Labs: CBC, BMP 06/22/19 13:05 06/21/19 06:40 INR, PTT INR 1.02 (0.83-1.09) 06/19/19 13:55 Problem List - Problems (1) Diabetic infection of right foot Assessment/Plan: Cont IV vanco MRI Rt foot shows osteomyelitis S/P amputation rt 3rd toe Code(s): E11.628 - TYPE 2 DIABETES MELLITUS WITH OTHER SKIN COMPLICATIONS; L08.9 - LOCAL INFECTION OF THE SKIN AND SUBCUTANEOUS TISSUE, UNSP (2) HTN (hypertension) Assessment/Plan: BP stable Cont asa/lisinopril Code(s): I10 - ESSENTIAL (PRIMARY) HYPERTENSION (3) HLD (hyperlipidemia) Assessment/Plan: Cont lipitor Code(s): E78.5 - HYPERLIPIDEMIA, UNSPECIFIED (4) Diabetes Assessment/Plan: Cont levemir/amaryl/metformin Cont sliding scale w/ coverage Code(s): E11.9 - TYPE 2 DIABETES MELLITUS WITHOUT COMPLICATIONS
[2019-06-22] MEDS: ATORVASTATIN CA 20 MG TABLET (FP) PO SCH (23:01)
[2019-06-22] MEDS: INSULIN (LEVEMIR) 100 UNITS/ML UNITS SQ SCH (23:01)
[2019-06-23] MEDS: INSULIN SLIDING SCALE (NOVOLOG) 1 VIAL SQ SCH ×4 (07:09→22:52)
[2019-06-23] MEDS ORDERED: PT OWN MED DRAWER 7, Y5N ONE ×2 (09:36→12:30)
[2019-06-23] MEDS: metFORMIN HCL 500 MG TABLET (FP) PO SCH ×2 (09:39→17:44)
[2019-06-23] MEDS: GLIMEPIRIDE 4 MG TABLET (FP) PO SCH (09:40)
[2019-06-23] MEDS: LISINOPRIL 10 MG TABLET (FP) PO SCH (09:40)
[2019-06-23] MEDS: BACITRACIN 15 GM TUBE TOPICAL OINTMENT TP SCH (09:40)
[2019-06-23] MEDS: ASPIRIN 81 MG CHEWABLE TABLETS PO SCH (09:40)
--- NOTE | 2019-06-23 12:29 | PN ---
Progress Note, Physician History of Present Illness: patient stable no new issues - Current Medication List Current Medications: Active Medications Aspirin (Asa -) 81 mg PO DAILY [facility] Last Admin: 06/23/19 09:40 Dose: 81 mg Atorvastatin Calcium (Lipitor -) 20 mg PO HS [facility] Last Admin: 06/22/19 23:01 Dose: 20 mg Bacitracin (Bacitracin -) 1 applic TP DAILY [facility] Last Admin: 06/23/19 09:40 Dose: Not Given Glimepiride (Amaryl -) 4 mg PO DAILY@0700 [facility] Last Admin: 06/23/19 09:40 Dose: 4 mg Vancomycin HCl 1,250 mg/ (Dextrose) 250 mls @ 166.667 mls/hr IVPB DAILY@1100 [facility]; Protocol Last Admin: 06/22/19 11:55 Dose: 166.667 mls/hr Insulin Aspart (Novolog Vial Sliding Scale -) 1 vial SQ [facility]; Protocol Last Admin: 06/23/19 07:09 Dose: 2 unit Insulin Detemir (Levemir Vial) 20 units SQ [facility] Last Admin: 06/22/19 23:01 Dose: 20 unit Lisinopril (Prinivil) 10 mg PO DAILY [facility] Last Admin: 06/23/19 09:40 Dose: 10 mg Metformin HCl (Glucophage -) 1,000 mg PO BIDAC [facility] Last Admin: 06/23/19 09:39 Dose: 1,000 mg - Objective Vital Signs: Vital Signs Temperature 98.0 F 06/23/19 06:00 Pulse Rate 81 06/23/19 06:00 Respiratory Rate 20 06/23/19 06:00 Blood Pressure 114/72 06/23/19 06:00 O2 Sat by Pulse Oximetry (%) 98 06/22/19 21:00 Constitutional: Yes: No Distress, Calm Cardiovascular: Yes: S1, S2 Respiratory: Yes: Regular, CTA Bilaterally Gastrointestinal: Yes: Normal Bowel Sounds, Soft Musculoskeletal: Yes: WNL Extremities: Yes: Other Wound/Incision: Yes: Dressing Dry and Intact Neurological: Yes: Alert, Oriented Psychiatric: Yes: Alert, Oriented Labs: CBC, BMP 06/22/19 13:05 06/21/19 06:40 INR, PTT INR 1.02 (0.83-1.09) 06/19/19 13:55 Assessment/Plan Problem List - Problems (1) Diabetic infection of right foot Code(s): E11.628 - TYPE 2 DIABETES MELLITUS WITH OTHER SKIN COMPLICATIONS; L08.9 - LOCAL INFECTION OF THE SKIN AND SUBCUTANEOUS TISSUE, UNSP (2) HTN (hypertension) Code(s): I10 - ESSENTIAL (PRIMARY) HYPERTENSION (3) HLD (hyperlipidemia) Code(s): E78.5 - HYPERLIPIDEMIA, UNSPECIFIED (4) Diabetes Code(s): E11.9 - TYPE 2 DIABETES MELLITUS WITHOUT COMPLICATIONS 5 osteo of the foot plan continue abx wound care
[2019-06-23] MEDS: VANCOMYCIN HCL 1,250 MG in DEXTROSE 5%-WATER - 250 ML IVPB SCH (12:39)
[2019-06-23] MEDS: VANCOMYCIN HCL 1,500 MG in DEXTROSE 5%-WATER - 500 ML IVPB SCH (14:00)
[2019-06-23] MEDS: ATORVASTATIN CA 20 MG TABLET (FP) PO SCH (22:51)
[2019-06-23] MEDS: INSULIN (LEVEMIR) 100 UNITS/ML UNITS SQ SCH (22:51)
--- NOTE | 2019-06-23 23:02 | PN ---
Progress Note, Physician History of Present Illness: No new complaints - Current Medication List Current Medications: Active Medications Aspirin (Asa -) 81 mg PO DAILY [facility] Last Admin: 06/23/19 09:40 Dose: 81 mg Atorvastatin Calcium (Lipitor -) 20 mg PO HS [facility] Last Admin: 06/23/19 22:51 Dose: 20 mg Bacitracin (Bacitracin -) 1 applic TP DAILY [facility] Last Admin: 06/23/19 09:40 Dose: Not Given Glimepiride (Amaryl -) 4 mg PO DAILY@0700 [facility] Last Admin: 06/23/19 09:40 Dose: 4 mg Vancomycin HCl 1,500 mg/ (Dextrose) 500 mls @ 250 mls/hr IVPB DAILY@1300 [facility]; Protocol Last Admin: 06/23/19 14:00 Dose: 250 mls/hr Insulin Aspart (Novolog Vial Sliding Scale -) 1 vial SQ [facility]; Protocol Last Admin: 06/23/19 22:52 Dose: 2 unit Insulin Detemir (Levemir Vial) [address] [facility] Last Admin: 06/23/19 22:51 Dose: 20 unit Lisinopril (Prinivil) 10 mg PO DAILY [facility] Last Admin: 06/23/19 09:40 Dose: 10 mg Metformin HCl (Glucophage -) 1,000 mg PO BIDAC [facility] Last Admin: 06/23/19 17:44 Dose: 1,000 mg - Objective Vital Signs: Vital Signs Temperature 98.8 F 06/23/19 18:00 Pulse Rate 90 06/23/19 18:00 Respiratory Rate 18 06/23/19 18:00 Blood Pressure 135/74 06/23/19 18:00 O2 Sat by Pulse Oximetry (%) 98 06/23/19 09:00 Constitutional: Yes: Well Nourished HENT: Yes: WNL Neck: Yes: WNL, Supple Cardiovascular: Yes: WNL, Regular Rate and Rhythm Respiratory: Yes: WNL, Regular, CTA Bilaterally Gastrointestinal: Yes: WNL, Normal Bowel Sounds, Soft Extremities: Yes: Other (Rt foot in dressing) Labs: CBC, BMP 06/22/19 13:05 06/21/19 06:40 INR, PTT INR 1.02 (0.83-1.09) 06/19/19 13:55 Problem List - Problems (1) Diabetic infection of right foot Assessment/Plan: Cont IV vanco MRI Rt foot shows osteomyelitis S/P amputation rt 3rd toe Cont wound care Code(s): E11.628 - TYPE 2 DIABETES MELLITUS WITH OTHER SKIN COMPLICATIONS; L08.9 - LOCAL INFECTION OF THE SKIN AND SUBCUTANEOUS TISSUE, UNSP (2) HTN (hypertension) Assessment/Plan: BP stable Cont asa/lisinopril Code(s): I10 - ESSENTIAL (PRIMARY) HYPERTENSION (3) HLD (hyperlipidemia) Assessment/Plan: Cont lipitor Code(s): E78.5 - HYPERLIPIDEMIA, UNSPECIFIED (4) Diabetes Assessment/Plan: Cont levemir/amaryl/metformin Cont sliding scale w/ coverage Code(s): E11.9 - TYPE 2 DIABETES MELLITUS WITHOUT COMPLICATIONS
[2019-06-24] MEDS: INSULIN SLIDING SCALE (NOVOLOG) 1 VIAL SQ SCH ×4 (06:46→21:56)
--- NOTE | 2019-06-24 08:05 | PN ---
Progress Note (short form) - Note Progress Note: Patient presents at bedside with post op ampution right foot distal aspect. Betadine dressing distal aspect Santyl applied lateral aspect right foot. Dsd applied with dolly bandage. Patent has osteomyelitis I will ciontinue to follow till Dr Stokes comes back
[2019-06-24] MEDS ORDERED: PT OWN MED DRAWER 7, Y5N ONE (08:51)
[2019-06-24] MEDS: GLIMEPIRIDE 4 MG TABLET (FP) PO SCH ×2 (08:55→08:57)
[2019-06-24] MEDS: metFORMIN HCL 500 MG TABLET (FP) PO SCH ×3 (08:55→18:16)
[2019-06-24] MEDS: LISINOPRIL 10 MG TABLET (FP) PO SCH (09:09)
[2019-06-24] MEDS: ASPIRIN 81 MG CHEWABLE TABLETS PO SCH (09:09)
[2019-06-24] MEDS: BACITRACIN 15 GM TUBE TOPICAL OINTMENT TP SCH (09:10)
--- NOTE | 2019-06-24 10:11 | PN ---
Progress Note, Physician History of Present Illness: patient stable no new issues awaiting for cx reports - Current Medication List Current Medications: Active Medications Aspirin (Asa -) 81 mg PO DAILY [facility] Last Admin: 06/24/19 09:09 Dose: 81 mg Atorvastatin Calcium (Lipitor -) 20 mg PO HS [facility] Last Admin: 06/23/19 22:51 Dose: 20 mg Bacitracin (Bacitracin -) 1 applic TP DAILY [facility] Last Admin: 06/24/19 09:10 Dose: Not Given Glimepiride (Amaryl -) 4 mg PO DAILY@0700 [facility] Last Admin: 06/24/19 08:57 Dose: 4 mg Vancomycin HCl 1,500 mg/ (Dextrose) 500 mls @ 250 mls/hr IVPB DAILY@1300 [facility]; Protocol Last Admin: 06/23/19 14:00 Dose: 250 mls/hr Insulin Aspart (Novolog Vial Sliding Scale -) 1 vial SQ [facility]; Protocol Last Admin: 06/24/19 06:46 Dose: Not Given Insulin Detemir (Levemir Vial) 20 units SQ [facility] Last Admin: 06/23/19 22:51 Dose: 20 unit Lisinopril (Prinivil) 10 mg PO DAILY [facility] Last Admin: 06/24/19 09:09 Dose: 10 mg Metformin HCl (Glucophage -) 1,000 mg PO BIDAC [facility] Last Admin: 06/24/19 08:57 Dose: 1,000 mg - Objective Vital Signs: Vital Signs Temperature 98.4 F 06/24/19 06:00 Pulse Rate 77 06/24/19 06:00 Respiratory Rate 18 06/24/19 06:00 Blood Pressure 136/80 06/24/19 06:00 O2 Sat by Pulse Oximetry (%) 98 06/23/19 21:00 Constitutional: Yes: No Distress, Calm Cardiovascular: Yes: S1, S2 Respiratory: Yes: Regular, CTA Bilaterally Gastrointestinal: Yes: Normal Bowel Sounds, Soft Musculoskeletal: Yes: Other Extremities: Yes: Other Wound/Incision: Yes: Dressing Dry and Intact Neurological: Yes: Alert, Oriented Psychiatric: Yes: Alert, Oriented Labs: CBC, BMP 06/22/19 13:05 06/21/19 06:40 INR, PTT INR 1.02 (0.83-1.09) 06/19/19 13:55 Assessment/Plan Problem List - Problems (1) Diabetic infection of right foot Code(s): E11.628 - TYPE 2 DIABETES MELLITUS WITH OTHER SKIN COMPLICATIONS; L08.9 - LOCAL INFECTION OF THE SKIN AND SUBCUTANEOUS TISSUE, UNSP (2) HTN (hypertension) Code(s): I10 - ESSENTIAL (PRIMARY) HYPERTENSION (3) HLD (hyperlipidemia) Code(s): E78.5 - HYPERLIPIDEMIA, UNSPECIFIED (4) Diabetes Code(s): E11.9 - TYPE 2 DIABETES MELLITUS WITHOUT COMPLICATIONS 5 osteo of the foot plan continue abx wound care awaiting for path report rest as per the team
[2019-06-24] MEDS: VANCOMYCIN HCL 1,500 MG in DEXTROSE 5%-WATER - 500 ML IVPB SCH (13:38)
--- NOTE | 2019-06-24 20:46 | PN ---
Progress Note, Physician - Current Medication List Current Medications: Active Medications Aspirin (Asa -) 81 mg PO DAILY [facility] Last Admin: 06/24/19 09:09 Dose: 81 mg Atorvastatin Calcium (Lipitor -) 20 mg PO HS [facility] Last Admin: 06/23/19 22:51 Dose: 20 mg Bacitracin (Bacitracin -) 1 applic TP DAILY [facility] Last Admin: 06/24/19 09:10 Dose: Not Given Glimepiride (Amaryl -) 4 mg PO DAILY@0700 [facility] Last Admin: 06/24/19 08:57 Dose: 4 mg Vancomycin HCl 1,500 mg/ (Dextrose) 500 mls @ 250 mls/hr IVPB DAILY@1300 [facility]; Protocol Last Admin: 06/24/19 13:38 Dose: 250 mls/hr Insulin Aspart (Novolog Vial Sliding Scale -) 1 vial SQ [facility]; Protocol Last Admin: 06/24/19 16:45 Dose: Not Given Insulin Detemir (Levemir Vial) 20 units SQ [facility] Last Admin: 06/23/19 22:51 Dose: 20 unit Lisinopril (Prinivil) 10 mg PO DAILY [facility] Last Admin: 06/24/19 09:09 Dose: 10 mg Metformin HCl (Glucophage -) 1,000 mg PO BIDAC [facility] Last Admin: 06/24/19 18:16 Dose: 1,000 mg - Objective Vital Signs: Vital Signs Temperature 99.0 F 06/24/19 15:17 Pulse Rate 88 06/24/19 15:17 Respiratory Rate 18 06/24/19 15:17 Blood Pressure 123/76 06/24/19 15:17 O2 Sat by Pulse Oximetry (%) 98 06/23/19 21:00 Labs: CBC, BMP 06/22/19 13:05 06/21/19 06:40 INR, PTT INR 1.02 (0.83-1.09) 06/19/19 13:55 Problem List - Problems (1) Diabetic infection of right foot Code(s): E11.628 - TYPE 2 DIABETES MELLITUS WITH OTHER SKIN COMPLICATIONS; L08.9 - LOCAL INFECTION OF THE SKIN AND SUBCUTANEOUS TISSUE, UNSP (2) HTN (hypertension) Code(s): I10 - ESSENTIAL (PRIMARY) HYPERTENSION (3) HLD (hyperlipidemia) Code(s): E78.5 - HYPERLIPIDEMIA, UNSPECIFIED (4) Diabetes Code(s): E11.9 - TYPE 2 DIABETES MELLITUS WITHOUT COMPLICATIONS
[2019-06-24] MEDS: INSULIN (LEVEMIR) 100 UNITS/ML UNITS SQ SCH (21:55)
[2019-06-24] MEDS: ATORVASTATIN CA 20 MG TABLET (FP) PO SCH (21:55)
[2019-06-25] MEDS ORDERED: PT OWN MED DRAWER 7, Y5N ONE (05:46)
[2019-06-25] MEDS: INSULIN SLIDING SCALE (NOVOLOG) 1 VIAL SQ SCH ×4 (06:39→21:54)
--- NOTE | 2019-06-25 08:51 | PN ---
Progress Note (short form) - Note Progress Note: Patient seen at bedside feels good. Amputation right foot ulcer lateral plantar right foot. Betadine dressing applied to amputation and Santyl applied to lateral plantar lession Dsd applied with dolly bandage There was no drainage present will follow
[2019-06-25] MEDS: metFORMIN HCL 500 MG TABLET (FP) PO SCH ×2 (09:12→17:30)
[2019-06-25] MEDS: GLIMEPIRIDE 4 MG TABLET (FP) PO SCH (09:13)
[2019-06-25] MEDS: ASPIRIN 81 MG CHEWABLE TABLETS PO SCH (10:07)
[2019-06-25] MEDS: LISINOPRIL 10 MG TABLET (FP) PO SCH (10:07)
[2019-06-25] MEDS: BACITRACIN 15 GM TUBE TOPICAL OINTMENT TP SCH (10:08)
--- NOTE | 2019-06-25 12:55 | PN ---
Progress Note, Physician History of Present Illness: stable no new issues - Current Medication List Current Medications: Active Medications Aspirin (Asa -) 81 mg PO DAILY [facility] Last Admin: 06/25/19 10:07 Dose: 81 mg Atorvastatin Calcium (Lipitor -) 20 mg PO HS [facility] Last Admin: 06/24/19 21:55 Dose: 20 mg Bacitracin (Bacitracin -) 1 applic TP DAILY [facility] Last Admin: 06/25/19 10:08 Dose: Not Given Glimepiride (Amaryl -) 4 mg PO DAILY@0700 [facility] Last Admin: 06/25/19 09:13 Dose: 4 mg Vancomycin HCl 1,500 mg/ (Dextrose) 500 mls @ 250 mls/hr IVPB DAILY@1300 [facility]; Protocol Last Admin: 06/24/19 13:38 Dose: 250 mls/hr Insulin Aspart (Novolog Vial Sliding Scale -) 1 vial SQ [facility]; Protocol Last Admin: 06/25/19 12:10 Dose: Not Given Insulin Detemir (Levemir Vial) 20 units SQ [facility] Last Admin: 06/24/19 21:55 Dose: 20 unit Lisinopril (Prinivil) 10 mg PO DAILY [facility] Last Admin: 06/25/19 10:07 Dose: 10 mg Metformin HCl (Glucophage -) 1,000 mg PO BIDAC [facility] Last Admin: 06/25/19 09:12 Dose: 1,000 mg - Objective Vital Signs: Vital Signs Temperature 98.0 F 06/25/19 07:00 Pulse Rate 72 06/25/19 07:00 Respiratory Rate 18 06/25/19 07:00 Blood Pressure 136/81 06/25/19 07:00 O2 Sat by Pulse Oximetry (%) 97 06/24/19 21:00 Constitutional: Yes: No Distress, Calm Cardiovascular: Yes: S1, S2 Respiratory: Yes: Regular, CTA Bilaterally Gastrointestinal: Yes: Normal Bowel Sounds, Soft Musculoskeletal: Yes: WNL Extremities: Yes: WNL Wound/Incision: Yes: Dressing Dry and Intact Neurological: Yes: Alert, Oriented Psychiatric: Yes: Alert, Oriented Labs: CBC, BMP 06/22/19 13:05 06/21/19 06:40 INR, PTT INR 1.02 (0.83-1.09) 06/19/19 13:55 Assessment/Plan Problem List - Problems (1) Diabetic infection of right foot Code(s): E11.628 - TYPE 2 DIABETES MELLITUS WITH OTHER SKIN COMPLICATIONS; L08.9 - LOCAL INFECTION OF THE SKIN AND SUBCUTANEOUS TISSUE, UNSP (2) HTN (hypertension) Code(s): I10 - ESSENTIAL (PRIMARY) HYPERTENSION (3) HLD (hyperlipidemia) Code(s): E78.5 - HYPERLIPIDEMIA, UNSPECIFIED (4) Diabetes Code(s): E11.9 - TYPE 2 DIABETES MELLITUS WITHOUT COMPLICATIONS 5 osteo of the foot plan continue abx wound care awaiting for sensitivities rest as per the team
[2019-06-25] MEDS: VANCOMYCIN HCL 1,500 MG in DEXTROSE 5%-WATER - 500 ML IVPB SCH (13:04)
--- NOTE | 2019-06-25 20:34 | PN ---
Progress Note, Physician - Current Medication List Current Medications: Active Medications Aspirin (Asa -) 81 mg PO DAILY [facility] Last Admin: 06/25/19 10:07 Dose: 81 mg Atorvastatin Calcium (Lipitor -) 20 mg PO HS [facility] Last Admin: 06/24/19 21:55 Dose: 20 mg Bacitracin (Bacitracin -) 1 applic TP DAILY [facility] Last Admin: 06/25/19 10:08 Dose: Not Given Glimepiride (Amaryl -) 4 mg PO DAILY@0700 [facility] Last Admin: 06/25/19 09:13 Dose: 4 mg Vancomycin HCl 1,500 mg/ (Dextrose) 500 mls @ 250 mls/hr IVPB DAILY@1300 [facility]; Protocol Last Admin: 06/25/19 13:04 Dose: 250 mls/hr Insulin Aspart (Novolog Vial Sliding Scale -) 1 vial SQ [facility]; Protocol Last Admin: 06/25/19 17:40 Dose: Not Given Insulin Detemir (Levemir Vial) 20 units SQ [facility] Last Admin: 06/24/19 21:55 Dose: 20 unit Lisinopril (Prinivil) 10 mg PO DAILY [facility] Last Admin: 06/25/19 10:07 Dose: 10 mg Metformin HCl (Glucophage -) 1,000 mg PO BIDAC [facility] Last Admin: 06/25/19 17:30 Dose: 1,000 mg - Objective Vital Signs: Vital Signs Temperature 97.9 F 06/25/19 18:00 Pulse Rate 87 06/25/19 18:00 Respiratory Rate 18 06/25/19 18:00 Blood Pressure 123/75 06/25/19 18:00 O2 Sat by Pulse Oximetry (%) 97 06/24/19 21:00 Labs: CBC, BMP 06/22/19 13:05 06/21/19 06:40 INR, PTT INR 1.02 (0.83-1.09) 06/19/19 13:55 Problem List - Problems (1) Diabetic infection of right foot Code(s): E11.628 - TYPE 2 DIABETES MELLITUS WITH OTHER SKIN COMPLICATIONS; L08.9 - LOCAL INFECTION OF THE SKIN AND SUBCUTANEOUS TISSUE, UNSP (2) HTN (hypertension) Code(s): I10 - ESSENTIAL (PRIMARY) HYPERTENSION (3) HLD (hyperlipidemia) Code(s): E78.5 - HYPERLIPIDEMIA, UNSPECIFIED (4) Diabetes Code(s): E11.9 - TYPE 2 DIABETES MELLITUS WITHOUT COMPLICATIONS
[2019-06-25] MEDS ORDERED: INSULIN (NOVOLOG) ASPART 100 UNITS/ML 10ML VIAL ONE (21:49)
[2019-06-25] MEDS: INSULIN (LEVEMIR) 100 UNITS/ML UNITS SQ SCH (21:53)
[2019-06-25] MEDS: ATORVASTATIN CA 20 MG TABLET (FP) PO SCH (21:53)
[2019-06-26] MEDS ORDERED: PT OWN MED DRAWER 7, Y5N ONE ×3 (06:53→12:00)
[2019-06-26] MEDS: INSULIN SLIDING SCALE (NOVOLOG) 1 VIAL SQ SCH (06:59)
[2019-06-26] MEDS ORDERED: INSULIN (NOVOLOG) ASPART 100 UNITS/ML 10ML VIAL ONE ×2 (07:08→12:13)
--- NOTE | 2019-06-26 08:58 | PN ---
Progress Note (short form) - Note Progress Note: Patient seen at bedside and is doing well Culture came back staphloccus latex coag pos Santly aplied to would on lateral side of foot and betatdine applied to distal aspect of foot Dsd applied Wounds are both improving - drainage or erythema
[2019-06-26] MEDS: ASPIRIN 81 MG CHEWABLE TABLETS PO SCH (09:49)
[2019-06-26] MEDS: LISINOPRIL 10 MG TABLET (FP) PO SCH (09:49)
[2019-06-26] MEDS: BACITRACIN 15 GM TUBE TOPICAL OINTMENT TP SCH (09:49)
[2019-06-26] MEDS: GLIMEPIRIDE 4 MG TABLET (FP) PO SCH (09:49)
[2019-06-26] MEDS: metFORMIN HCL 500 MG TABLET (FP) PO SCH ×2 (09:50→17:46)
--- NOTE | 2019-06-26 10:00 | PN ---
Progress Note, Physician History of Present Illness: stable no issues patient wants to come here and take abx - Current Medication List Current Medications: Active Medications Aspirin (Asa -) 81 mg PO DAILY [facility] Last Admin: 06/26/19 09:49 Dose: 81 mg Atorvastatin Calcium (Lipitor -) 20 mg PO HS [facility] Last Admin: 06/25/19 21:53 Dose: 20 mg Bacitracin (Bacitracin -) 1 applic TP DAILY [facility] Last Admin: 06/26/19 09:49 Dose: 1 applic Glimepiride (Amaryl -) 4 mg PO DAILY@0700 [facility] Last Admin: 06/26/19 09:49 Dose: 4 mg Vancomycin HCl 1,500 mg/ (Dextrose) 500 mls @ 250 mls/hr IVPB DAILY@1300 [facility]; Protocol Last Admin: 06/25/19 13:04 Dose: 250 mls/hr Insulin Aspart (Novolog Vial Sliding Scale -) 1 vial SQ [facility]; Protocol Last Admin: 06/26/19 06:59 Dose: 2 unit Insulin Detemir (Levemir Vial) 20 units SQ [facility] Last Admin: 06/25/19 21:53 Dose: 20 unit Lisinopril (Prinivil) 10 mg PO DAILY [facility] Last Admin: 06/26/19 09:49 Dose: 10 mg Metformin HCl (Glucophage -) 1,000 mg PO BIDAC [facility] Last Admin: 06/26/19 09:50 Dose: 1,000 mg - Objective Vital Signs: Vital Signs Temperature 98.1 F 06/26/19 09:51 Pulse Rate 72 06/26/19 09:51 Respiratory Rate 18 06/26/19 09:51 Blood Pressure 122/74 06/26/19 09:51 O2 Sat by Pulse Oximetry (%) 97 06/25/19 21:00 Constitutional: Yes: No Distress, Calm Cardiovascular: Yes: S1, S2 Respiratory: Yes: Regular, CTA Bilaterally Gastrointestinal: Yes: Normal Bowel Sounds, Soft Musculoskeletal: Yes: WNL Extremities: Yes: Other Wound/Incision: Yes: Dressing Dry and Intact Neurological: Yes: Alert, Oriented Psychiatric: Yes: Alert, Oriented Labs: CBC, BMP 06/22/19 13:05 06/21/19 06:40 INR, PTT INR 1.02 (0.83-1.09) 06/19/19 13:55 Assessment/Plan Problem List - Problems (1) Diabetic infection of right foot Code(s): E11.628 - TYPE 2 DIABETES MELLITUS WITH OTHER SKIN COMPLICATIONS; L08.9 - LOCAL INFECTION OF THE SKIN AND SUBCUTANEOUS TISSUE, UNSP (2) HTN (hypertension) Code(s): I10 - ESSENTIAL (PRIMARY) HYPERTENSION (3) HLD (hyperlipidemia) Code(s): E78.5 - HYPERLIPIDEMIA, UNSPECIFIED (4) Diabetes Code(s): E11.9 - TYPE 2 DIABETES MELLITUS WITHOUT COMPLICATIONS 5 osteo of the foot plan will continue vanco will check a vanco trough tomorrow still awaiting for sensitivities also patient has yeast like organism though it could be from the skin i am going to treat it for 4 weeks
[2019-06-26] MEDS: FLUCONAZOLE 100 MG TABLET (UD) PO SCH ×2 (12:59→14:34)
[2019-06-26 14:21] VITALS: BMI 35.3
--- NOTE | 2019-06-26 15:34 | PATH ---
Surgical Pathology Report Patient Name: BILL MENCHACA [facility]. Rec. #: [id number] /Age/Gender: 1960 (Age: 58) / M Account: [id number] Location: [address] [place] [address]/[facility] Taken: 06/21/2019 Received: 06/24/2019 Reported: 06/26/2019 Physicians: Kelle Santoyo M.D. Specimen(s) Received THIRD RIGHT TOE Clinical History Diabetic infection right foot Final Diagnosis RIGHT THIRD TOE, AMPUTATION: AMPUTATED TOE SHOWING ULCERATION, ACUTE AND CHRONIC INFLAMMATION, AND ACUTE OSTEOMYELITIS. THE INFLAMMATION EXTENDS TO THE SKIN AND SOFT TISSUE MARGIN. THE BONE MARGIN IS INVOLVED WITH ACUTE OSTEOMYELITIS. SEPARATE PORTION OF BONE WITH NO HISTOLOGIC EVIDENCE OF OSTEOMYELITIS. Electronically Signed Bubba Alaniz M.D. Gross Description Received in formalin labeled "right third toe," is a 4.0 x 2.2 x 1.8 cm toe amputation. The epidermal surface displays a 1.3 x 0.9 cm de dios, ulcerated lesion involving the skin and soft tissue margin. The lesion also involves the underlying bone. Separately received within the same container is a 1.2 x 1.0 x 1.0 cm additional portion of bone. Hyperbaric Technician sections are submitted in 4 cassettes as follows: 1-lesion with underlying bone, following decalcification; 2-bone margin, following decalcification; 3-skin and soft tissue margin; 6-[id number] section of separately received portion of bone, following decalcification. 06/25/2019 saudi06/25/2019
[2019-06-26] MEDS: VANCOMYCIN HCL 1,500 MG in DEXTROSE 5%-WATER - 500 ML IVPB SCH (17:01)
[2019-06-26 19:16] VITALS: BP 125/79; PULSE 93; TEMP 98.7
== END 2019-06-26 21:35 | disposition home health service (06) | DRG 617 ==
LOC: JER 12:41 → JERBED 15:58 → J5S 21:47
PROVIDERS: ADMIT Internal Medicine; ATTEND Internal Medicine
PROC: 0Y6T0Z0 Detachment at Right 3rd Toe, Complete, Open Approach (ICD-10-PCS; principal; 2019-06-21 15:00)
PROC: 0QBQ0ZX Excision of Right Toe Phalanx, Open Approach, Diagnostic (ICD-10-PCS; 2019-06-21 15:00)
PROC: 02HV33Z Insertion of Infusion Device into Superior Vena Cava, Percutaneous Approach (ICD-10-PCS; 2019-06-26)
PROC: B518ZZA Fluoroscopy of Superior Vena Cava, Guidance (ICD-10-PCS; 2019-06-26)
DX: E11.69 Type 2 diabetes mellitus with other specified complication (principal); M86.171 Other acute osteomyelitis, right ankle and foot; M84.674A Pathological fracture in other disease, right foot, initial encounter for fracture; A52.16 Charcot's arthropathy (tabetic); E11.610 Type 2 diabetes mellitus with diabetic neuropathic arthropathy; E11.628 Type 2 diabetes mellitus with other skin complications; I10 Essential (primary) hypertension; Z88.0 Allergy status to penicillin; Z89.422 Acquired absence of other left toe(s); E66.9 Obesity, unspecified; Z68.35 Body mass index [BMI] 35.0-35.9, adult; Z79.84 Long term (current) use of oral hypoglycemic drugs; E78.5 Hyperlipidemia, unspecified; B95.7 Other staphylococcus as the cause of diseases classified elsewhere
CPT/HCPCS: 36415; 36569; 71046-TC-FY; 73630-TC-RT-FY; 73718-TC-RT; 77001-TC-FY; 80053; 82962; 83036; 85025; 85610; 85651; 85730; 86140; 86850; 86900; 86901; 87040; 87070; 87075; 87077; 87106; 87186; 87205; 88305-TC; 88311-TC; 93005; 93010; 94760; 99285-25; C1751; G0480; J1644

== ENCOUNTER 2019-06-27 11:27 | Day surgery (SDC) | payer OTHER ==
[~2019-06-27 11:27] MED LIST: VANCOMYCIN HCL 1,500 MG in SODIUM CHLORIDE 500 ML IVPB ONE
[2019-06-27 12:50] VITALS: PULSE 100; TEMP 98.3
[2019-06-27 15:36] VITALS: BP 150/81
== END 2019-06-27 15:05 | disposition home or self-care (01) ==
LOC: JINFUSION 11:27
PROVIDERS: ATTEND Internal Medicine Infectious Disease
DX: E11.69 Type 2 diabetes mellitus with other specified complication (principal); M86.171 Other acute osteomyelitis, right ankle and foot; B95.7 Other staphylococcus as the cause of diseases classified elsewhere
CPT/HCPCS: 96365; 96366; G0480

== ENCOUNTER 2019-06-28 09:12 | Day surgery (SDC) | payer OTHER ==
[~2019-06-28 09:12] MED LIST changes: +SODIUM CHLORIDE IVPB ONE; +VANCOMYCIN 1,750 MG in SODIUM CHLORIDE 500 ML IVPB ONE; -VANCOMYCIN HCL 1,500 MG in SODIUM CHLORIDE 500 ML IVPB ONE; +VANCOMYCIN IVPB ONE
[2019-06-28 10:16] VITALS: TEMP 98.2
[2019-06-28 12:47] VITALS: BP 123/70; PULSE 82
== END 2019-06-28 12:35 | disposition home or self-care (01) ==
LOC: JINFUSION 09:12
PROVIDERS: ATTEND Internal Medicine Infectious Disease
DX: E11.69 Type 2 diabetes mellitus with other specified complication (principal); M86.171 Other acute osteomyelitis, right ankle and foot; B95.7 Other staphylococcus as the cause of diseases classified elsewhere
CPT/HCPCS: 96365; 96366

== ENCOUNTER → 2019-06-29 | Day surgery (SDC) | payer OTHER | LOC: JINFUSION 09:53 → J7W 09:53 ==

== ENCOUNTER 2019-06-30 11:24 | Day surgery (SDC) | payer OTHER ==
[2019-06-30] MEDS ORDERED: VANCOMYCIN 1,750 MG in SODIUM CHLORIDE 500 ML IVPB ONE (12:30)
[2019-06-30 15:53] VITALS: BP 147/81; PULSE 72; TEMP 98.1
== END 2019-06-30 15:58 | disposition home or self-care (01) ==
LOC: J7W 11:24 → JINFUSION 11:24
PROVIDERS: ATTEND Internal Medicine Infectious Disease
DX: E11.69 Type 2 diabetes mellitus with other specified complication (principal); M86.171 Other acute osteomyelitis, right ankle and foot; B95.7 Other staphylococcus as the cause of diseases classified elsewhere
CPT/HCPCS: 96365; 96366

== ENCOUNTER 2019-07-01 11:19 | Day surgery (SDC) | payer OTHER ==
[~2019-07-01 11:19] MED LIST changes: -SODIUM CHLORIDE IVPB ONE; -VANCOMYCIN IVPB ONE
[2019-07-01 13:07] VITALS: TEMP 98.9
[2019-07-01 14:51] VITALS: BP 160/85; PULSE 70
== END 2019-07-01 14:30 | disposition home or self-care (01) ==
LOC: JINFUSION 11:19
PROVIDERS: ATTEND Internal Medicine Infectious Disease
DX: E11.69 Type 2 diabetes mellitus with other specified complication (principal); M86.171 Other acute osteomyelitis, right ankle and foot; B95.7 Other staphylococcus as the cause of diseases classified elsewhere; E11.621 Type 2 diabetes mellitus with foot ulcer; L97.512 Non-pressure chronic ulcer of other part of right foot with fat layer exposed
CPT/HCPCS: 82962; 96365; 96366; G0463-25; G0480

== ENCOUNTER 2019-07-02 10:02 | Day surgery (SDC) | payer OTHER ==
[~2019-07-02 10:02] MED LIST changes: +SODIUM CHLORIDE IVPB ONE; -VANCOMYCIN 1,750 MG in SODIUM CHLORIDE 500 ML IVPB ONE; +VANCOMYCIN 2,000 MG in SODIUM CHLORIDE 500 ML IVPB ONE; +VANCOMYCIN IVPB ONE
[2019-07-02 10:27] LABS: HEMATOCRIT 37.3 % (35.4-49); HEMOGLOBIN 13.1 GM/dL (11.7-16.9); MCH 28.9 pg (25.7-33.7); MCHC 35.2 g/dl (32.0-35.9); MEAN CELL VOLUME 82.1 fl (80-96); MEAN PLT VOLUME 7.7 fl (7.5-11.1); PLATELET COUNT 297 K/MM3 (134-434); RBC 4.55 M/mm3 (4.00-5.60); RDW 13.7 % (11.9-15.9); WHITE BLOOD COUNT 6.4 K/mm3 (4.0-10.0)
[2019-07-02 11:00] LABS: BLOOD UREA NITROGEN 15.7 mg/dL (7-18); CALCIUM 8.8 mg/dL (8.5-10.1); CREATININE 1.1 mg/dL (0.55-1.3); POTASSIUM 4.6 mmol/L (3.5-5.1)
[2019-07-02 13:46] VITALS: BP 149/66; PULSE 81; TEMP 98.6
[2019-07-02 14:04] LABS: ERYTHROCYTE SEDIMENTATION RATE 16 mm/hr (0-20)
== END 2019-07-02 13:35 | disposition home or self-care (01) ==
LOC: JINFUSION 10:02
PROVIDERS: ATTEND Internal Medicine Infectious Disease
DX: E11.69 Type 2 diabetes mellitus with other specified complication (principal); M86.171 Other acute osteomyelitis, right ankle and foot; B95.7 Other staphylococcus as the cause of diseases classified elsewhere; E11.621 Type 2 diabetes mellitus with foot ulcer; L97.512 Non-pressure chronic ulcer of other part of right foot with fat layer exposed
CPT/HCPCS: 36415; 80048; 82962; 85027; 85651; 86140; 96365; 96366; G0277

== ENCOUNTER 2019-07-03 10:17 | Day surgery (SDC) | payer OTHER ==
[~2019-07-03 10:17] MED LIST changes: -SODIUM CHLORIDE IVPB ONE; -VANCOMYCIN IVPB ONE
[2019-07-03 15:49] VITALS: BP 151/81; PULSE 75; TEMP 98.2
== END 2019-07-03 13:10 | disposition home or self-care (01) ==
LOC: JINFUSION 10:17
PROVIDERS: ATTEND Internal Medicine Infectious Disease
DX: E11.69 Type 2 diabetes mellitus with other specified complication (principal); M86.171 Other acute osteomyelitis, right ankle and foot; B95.7 Other staphylococcus as the cause of diseases classified elsewhere
CPT/HCPCS: 82962; 96365; 96366; G0277

== ENCOUNTER 2019-07-04 09:48 | Day surgery (SDC) | payer OTHER ==
[2019-07-04] MEDS ORDERED: VANCOMYCIN 2,000 MG in SODIUM CHLORIDE 500 ML IVPB ONE (10:30)
[2019-07-04 13:48] VITALS: BP 158/78; PULSE 79; TEMP 98.2
== END 2019-07-04 13:05 | disposition home or self-care (01) ==
LOC: JINFUSION 09:48
PROVIDERS: ATTEND Internal Medicine Infectious Disease
DX: E11.69 Type 2 diabetes mellitus with other specified complication (principal); M86.171 Other acute osteomyelitis, right ankle and foot; B95.7 Other staphylococcus as the cause of diseases classified elsewhere
CPT/HCPCS: 82962; 96365; 96366; G0277; G0463-25

== ENCOUNTER 2019-07-05 09:55 | Day surgery (SDC) | payer OTHER ==
[2019-07-05 14:39] VITALS: BP 170/90; PULSE 88; TEMP 99.1
== END 2019-07-05 13:05 | disposition home or self-care (01) ==
LOC: JINFUSION 09:55
PROVIDERS: ATTEND Internal Medicine Infectious Disease
DX: E11.69 Type 2 diabetes mellitus with other specified complication (principal); B95.7 Other staphylococcus as the cause of diseases classified elsewhere
CPT/HCPCS: 96365; 96366; G0480

== ENCOUNTER 2019-07-06 09:28 | Day surgery (SDC) | payer OTHER ==
[2019-07-06] MEDS ORDERED: DAPTOMYCIN 750 MG in SODIUM CHLORIDE 100 ML IVPB SCH (10:45)
[2019-07-06 11:12] VITALS: BP 150/77; PULSE 79; TEMP 98
[2019-07-07] MEDS ORDERED: DAPTOMYCIN 750 MG in SODIUM CHLORIDE 100 ML IVPB SCH (10:00)
== END 2019-07-06 12:30 | disposition home or self-care (01) ==
LOC: JINFUSION 09:28 → J7W 09:29 → JINFUSION 12:30
PROVIDERS: ATTEND Internal Medicine Infectious Disease
DX: E11.69 Type 2 diabetes mellitus with other specified complication (principal); M86.171 Other acute osteomyelitis, right ankle and foot; B95.7 Other staphylococcus as the cause of diseases classified elsewhere
CPT/HCPCS: 96365; J0878

== ENCOUNTER 2019-07-07 11:28 | Day surgery (SDC) | payer OTHER ==
[2019-07-07] MEDS ORDERED: DAPTOMYCIN 750 MG in SODIUM CHLORIDE 100 ML IVPB ONE (12:30)
[2019-07-07 13:40] VITALS: TEMP 98.6
[2019-07-07 14:43] VITALS: BP 141/77; PULSE 83
== END 2019-07-07 15:40 | disposition home or self-care (01) ==
LOC: JINFUSION 11:28 → J7W 11:28 → JINFUSION 15:40
PROVIDERS: ATTEND Internal Medicine Infectious Disease
DX: E11.69 Type 2 diabetes mellitus with other specified complication (principal); M86.171 Other acute osteomyelitis, right ankle and foot; B95.7 Other staphylococcus as the cause of diseases classified elsewhere
CPT/HCPCS: 96365; J0878

== ENCOUNTER 2019-07-08 10:54 | Day surgery (SDC) | payer OTHER ==
[2019-07-08 11:28] VITALS: TEMP 98.3
[2019-07-08] MEDS ORDERED: DAPTOMYCIN 750 MG in SODIUM CHLORIDE 100 ML IVPB ONE (12:00)
[2019-07-08 13:02] VITALS: BP 135/83; PULSE 89
== END 2019-07-08 13:00 | disposition home or self-care (01) ==
LOC: JINFUSION 10:54
PROVIDERS: ATTEND Internal Medicine Infectious Disease
DX: E11.69 Type 2 diabetes mellitus with other specified complication (principal); M86.171 Other acute osteomyelitis, right ankle and foot; B95.7 Other staphylococcus as the cause of diseases classified elsewhere; E11.621 Type 2 diabetes mellitus with foot ulcer; L97.512 Non-pressure chronic ulcer of other part of right foot with fat layer exposed
CPT/HCPCS: 82962; 96365; G0277; J0878

== ENCOUNTER 2019-07-09 10:55 | Day surgery (SDC) | payer OTHER ==
[~2019-07-09 10:55] MED LIST changes: +DAPTOMYCIN 750 MG in SODIUM CHLORIDE 100 ML IVPB ONE; -VANCOMYCIN 2,000 MG in SODIUM CHLORIDE 500 ML IVPB ONE
[2019-07-09 11:41] LABS: HEMATOCRIT 39.1 % (35.4-49); HEMOGLOBIN 13.3 GM/dL (11.7-16.9); MCH 28.4 pg (25.7-33.7); MCHC 33.9 g/dl (32.0-35.9); MEAN CELL VOLUME 83.8 fl (80-96); MEAN PLT VOLUME 8.1 fl (7.5-11.1); PLATELET COUNT 243 K/MM3 (134-434); RBC 4.66 M/mm3 (4.00-5.60); RDW 14.2 % (11.9-15.9); WHITE BLOOD COUNT 10.1 K/mm3 (4.0-10.0)
[2019-07-09 13:04] LABS: ERYTHROCYTE SEDIMENTATION RATE 32 mm/hr (0-20)
[2019-07-09 14:16] VITALS: TEMP 98.4
[2019-07-09 14:18] VITALS: BP 151/81; PULSE 92
== END 2019-07-09 12:00 | disposition home or self-care (01) ==
LOC: JINFUSION 10:55
PROVIDERS: ATTEND Internal Medicine Infectious Disease
DX: E11.69 Type 2 diabetes mellitus with other specified complication (principal); M86.171 Other acute osteomyelitis, right ankle and foot; B95.7 Other staphylococcus as the cause of diseases classified elsewhere
CPT/HCPCS: 36415; 82550; 82962; 85027; 85651; 86140; 96365; 96366; G0277; J0878

== ENCOUNTER 2019-07-10 11:00 | Day surgery (SDC) | payer OTHER ==
[2019-07-10 11:39] VITALS: TEMP 98.4
[2019-07-10 12:10] VITALS: BP 151/79; PULSE 92
== END 2019-07-10 12:12 | disposition home or self-care (01) ==
LOC: JINFUSION 11:00
PROVIDERS: ATTEND Internal Medicine Infectious Disease
DX: E11.69 Type 2 diabetes mellitus with other specified complication (principal); M86.171 Other acute osteomyelitis, right ankle and foot; B95.7 Other staphylococcus as the cause of diseases classified elsewhere; E11.621 Type 2 diabetes mellitus with foot ulcer; L97.512 Non-pressure chronic ulcer of other part of right foot with fat layer exposed
CPT/HCPCS: 82962; 96365; G0277; J0878

== ENCOUNTER 2019-07-11 10:55 | Day surgery (SDC) | payer OTHER ==
[2019-07-11 11:29] VITALS: TEMP 98.2
[2019-07-11 12:02] VITALS: BP 140/82; PULSE 93
== END 2019-07-11 12:02 | disposition home or self-care (01) ==
LOC: JINFUSION 10:55
PROVIDERS: ATTEND Internal Medicine Infectious Disease
DX: E11.69 Type 2 diabetes mellitus with other specified complication (principal); M86.171 Other acute osteomyelitis, right ankle and foot; B95.7 Other staphylococcus as the cause of diseases classified elsewhere
CPT/HCPCS: 82962; 96365; G0277; J0878

== ENCOUNTER 2019-07-12 10:50 | Day surgery (SDC) | payer OTHER ==
[2019-07-12 12:03] VITALS: TEMP 99.2
[2019-07-12 15:31] VITALS: BP 149/77; PULSE 93
== END 2019-07-12 12:10 | disposition home or self-care (01) ==
LOC: JINFUSION 10:50
PROVIDERS: ATTEND Internal Medicine Infectious Disease
DX: E11.69 Type 2 diabetes mellitus with other specified complication (principal); M86.171 Other acute osteomyelitis, right ankle and foot; B95.7 Other staphylococcus as the cause of diseases classified elsewhere
CPT/HCPCS: 82962; 96365; G0277; J0878

== ENCOUNTER 2019-07-13 09:11 | Day surgery (SDC) | payer OTHER ==
[2019-07-13] MEDS ORDERED: DAPTOMYCIN 750 MG in SODIUM CHLORIDE 100 ML IVPB ONE (09:50)
[2019-07-13 10:24] VITALS: BP 150/82; PULSE 85; TEMP 97.1
== END 2019-07-13 10:27 | disposition home or self-care (01) ==
LOC: JINFUSION 09:11 → J7W 09:13 → JINFUSION 10:27
PROVIDERS: ATTEND Internal Medicine Infectious Disease
DX: E11.69 Type 2 diabetes mellitus with other specified complication (principal); M86.171 Other acute osteomyelitis, right ankle and foot; B95.7 Other staphylococcus as the cause of diseases classified elsewhere
CPT/HCPCS: 96365; J0878

== ENCOUNTER 2019-07-14 11:20 | Day surgery (SDC) | payer OTHER ==
[2019-07-14] MEDS ORDERED: DAPTOMYCIN 750 MG in SODIUM CHLORIDE 100 ML IVPB ONE (11:50)
[2019-07-14 12:04] VITALS: BP 134/75; PULSE 96; TEMP 98
== END 2019-07-14 13:03 | disposition home or self-care (01) ==
LOC: JINFUSION 11:20 → J7W 11:21 → JINFUSION 13:03
PROVIDERS: ATTEND Internal Medicine Infectious Disease
DX: E11.69 Type 2 diabetes mellitus with other specified complication (principal); M86.171 Other acute osteomyelitis, right ankle and foot; B95.7 Other staphylococcus as the cause of diseases classified elsewhere
CPT/HCPCS: 96365; J0878

== ENCOUNTER 2019-07-15 11:20 | Day surgery (SDC) | payer OTHER ==
[2019-07-15] MEDS ORDERED: DAPTOMYCIN 750 MG in SODIUM CHLORIDE 50 ML IVPB ONE (11:45)
[2019-07-15] MEDS ORDERED: DAPTOMYCIN 750 MG in SODIUM CHLORIDE 100 ML IVPB ONE (12:00)
[2019-07-15 13:18] VITALS: TEMP 98.4
[2019-07-15 13:20] VITALS: BP 148/83; PULSE 85
== END 2019-07-15 13:35 | disposition home or self-care (01) ==
LOC: JINFUSION 11:20 → J7W 11:29 → JINFUSION 12:30
PROVIDERS: ATTEND Internal Medicine Infectious Disease
DX: E11.69 Type 2 diabetes mellitus with other specified complication (principal); M86.171 Other acute osteomyelitis, right ankle and foot; B95.7 Other staphylococcus as the cause of diseases classified elsewhere
CPT/HCPCS: 96365; J0878

== ENCOUNTER 2019-07-16 11:03 | Day surgery (SDC) | payer OTHER ==
[2019-07-16 11:35] LABS: HEMATOCRIT 39.2 % (35.4-49); HEMOGLOBIN 13.2 GM/dL (11.7-16.9); MCH 28.1 pg (25.7-33.7); MCHC 33.6 g/dl (32.0-35.9); MEAN CELL VOLUME 83.6 fl (80-96); MEAN PLT VOLUME 7.5 fl (7.5-11.1); PLATELET COUNT 350 K/MM3 (134-434); RBC 4.69 M/mm3 (4.00-5.60); RDW 13.8 % (11.9-15.9); WHITE BLOOD COUNT 10.6 K/mm3 (4.0-10.0)
[2019-07-16 11:56] VITALS: TEMP 98.3
[2019-07-16 12:01] LABS: BLOOD UREA NITROGEN 21.7 mg/dL (7-18); CALCIUM 9.8 mg/dL (8.5-10.1); POTASSIUM 4.4 mmol/L (3.5-5.1)
[2019-07-16 12:48] LABS: ERYTHROCYTE SEDIMENTATION RATE 27 mm/hr (0-20)
[2019-07-16 12:49] VITALS: BP 144/74; PULSE 88
== END 2019-07-16 12:36 | disposition home or self-care (01) ==
LOC: JINFUSION 11:03
PROVIDERS: ATTEND Internal Medicine Infectious Disease
PROC: 3E043GC Introduction of Other Therapeutic Substance into Central Vein, Percutaneous Approach (ICD-10-PCS; principal; 2019-07-16)
DX: E11.69 Type 2 diabetes mellitus with other specified complication (principal); M86.171 Other acute osteomyelitis, right ankle and foot; B95.7 Other staphylococcus as the cause of diseases classified elsewhere
CPT/HCPCS: 36415; 80048; 82962; 85027; 85651; 86140; 96365; G0277; J0878

== ENCOUNTER 2019-07-17 10:50 | Day surgery (SDC) | payer OTHER ==
[2019-07-17 14:07] VITALS: BP 143/81; PULSE 89; TEMP 98.7
== END 2019-07-17 13:45 | disposition home or self-care (01) ==
LOC: JINFUSION 10:50
PROVIDERS: ATTEND Internal Medicine Infectious Disease
PROC: 3E043GC Introduction of Other Therapeutic Substance into Central Vein, Percutaneous Approach (ICD-10-PCS; principal; 2019-07-17)
DX: E11.69 Type 2 diabetes mellitus with other specified complication (principal); M86.171 Other acute osteomyelitis, right ankle and foot; B95.7 Other staphylococcus as the cause of diseases classified elsewhere
CPT/HCPCS: 96365; J0878

== ENCOUNTER 2019-07-17 11:59 | Emergency (ER) | payer OTHER ==
[2019-07-17 12:21] VITALS: BP 161/85; PULSE 90; TEMP 98.5; BMI 35.3
--- NOTE | 2019-07-17 12:38 | PDOC ---
History of Present Illness - General Chief Complaint: Pain Stated Complaint: LT. ARM PAIN/ PIC LINE Time Seen by Provider: 07/17/19 12:27 - History of Present Illness Initial Comments: 07/17/19 12:37 58-year-old male with a past medical history of diabetes. On IV antibiotics for right foot infection has a PICC line. Presents for evaluation of atraumatic left forearm pain times one day. He has trouble gripping and holding a frying landry this morning. He denies any trauma or any precipitating event. Past History - Past Medical History Allergies/Adverse Reactions: Allergies Allergy/AdvReac Type Severity Reaction Status Date / Time Penicillins Allergy Severe Difficulty Verified 06/19/19 13:01 Breathing Home Medications: Ambulatory Orders Aspirin [ASA -] 81 mg PO DAILY 06/19/19 Glimepiride 4 mg PO DAILY 06/19/19 Lantus 22 units HS 06/19/19 Lisinopril 10 mg PO DAILY 06/19/19 Metformin HCl [Glucophage] 1,000 mg PO BID 06/19/19 Pravastatin Sodium 20 mg PO DAILY 06/19/19 Bacitracin - [Bacitracin Topical Ointment -] 1 applic TP DAILY #1 tube 06/26/19 Fluconazole [Diflucan -] 200 mg PO DAILY #10 tablet 06/26/19 COPD: No Diabetes: Yes HTN: Yes - Surgical History Orthopedic Surgery: Yes (toe's amputation,knee surgery) - Suicide/Smoking/Psychosocial Hx Smoking History: Unknown if ever smoked Have you smoked in the past 12 months: No Hx Alcohol Use: No Drug/Substance Use Hx: No Substance Use Type: None Review of Systems - Review of Systems Musculoskeletal: Yes: Muscle Pain *Physical Exam - Vital Signs Last Vital Signs Temp Pulse Resp BP Pulse Ox 98.5 F 90 19 161/85 95 07/17/19 12:17 07/17/19 12:17 07/17/19 12:17 07/17/19 12:17 07/17/19 12:17 - Physical Exam Comments: 07/17/19 12:36 Left forearm skin color and temperature are normal. PICC line is in place in the left upper arm. There is no indication of thrombophlebitis. There is mild swelling at the distal aspect of the forearm and the wrist. There is no pain with passive wrist motion. No induration areas of fluctuance or tenderness. He has no pain with passive flexion and extension supination or pronation. He has tenderness about the extensor wad of the left forearm. No gross sensory motor deficits neurovascularly intact. The flexor wad soft and floppy. Medical Decision Making - Medical Decision Making 07/17/19 12:36 58-year-old male with a past medical history of diabetes being treated with PICC line IV antibiotics for a right foot infection. Sent down to the emergency room for clearance because of left forearm pain. There is no indication of thrombophlebitis. This appears to be a left forearm strain. He has refused a wrist splint to rest his arm. I will have him follow-up with orthopedic surgery. *DC/Admit/Observation/Transfer Diagnosis at time of Disposition: Strain of left forearm - Discharge Dispostion Disposition: HOME Condition at time of disposition: Stable Decision to Admit order: No - Referrals Referrals: Nick Hagan DO [Staff Physician] - - Patient Instructions Additional Instructions: A take Tylenol for pain. Please follow-up with orthopedic surgery in 1-2 days for further evaluation and treatment options and return to the emergency room should symptoms worsen. If your symptoms worsen been you change her mind about a wrist splint he may purchase that at any pharmacy. There is no emergent contraindication to receiving her IV antibiotics for your right foot infection. - Post Discharge Activity
== END 2019-07-17 12:43 | disposition home or self-care (01) ==
LOC: JERFT 11:59
DX: S56.812A Strain of other muscles, fascia and tendons at forearm level, left arm, initial encounter (principal); X58.XXXA Exposure to other specified factors, initial encounter; Y93.89 Activity, other specified; Y92.89 Other specified places as the place of occurrence of the external cause; Y99.8 Other external cause status; Z95.828 Presence of other vascular implants and grafts; I11.9 Hypertensive heart disease without heart failure; Z79.4 Long term (current) use of insulin; Z79.2 Long term (current) use of antibiotics
CPT/HCPCS: 99281-25

== ENCOUNTER 2019-07-18 10:47 | Day surgery (SDC) | payer OTHER ==
[2019-07-18 13:30] VITALS: BP 148/78; PULSE 89; TEMP 97.9
== END 2019-07-18 12:10 | disposition home or self-care (01) ==
LOC: JINFUSION 10:47
PROVIDERS: ATTEND Internal Medicine Infectious Disease
PROC: 3E043GC Introduction of Other Therapeutic Substance into Central Vein, Percutaneous Approach (ICD-10-PCS; principal; 2019-07-18)
DX: E11.69 Type 2 diabetes mellitus with other specified complication (principal); M86.171 Other acute osteomyelitis, right ankle and foot; B95.7 Other staphylococcus as the cause of diseases classified elsewhere; E11.621 Type 2 diabetes mellitus with foot ulcer; L97.512 Non-pressure chronic ulcer of other part of right foot with fat layer exposed
CPT/HCPCS: 82962; 96365; G0277; G0463-25; J0878

== ENCOUNTER 2019-07-19 11:01 | Day surgery (SDC) | payer OTHER ==
[2019-07-19 14:53] VITALS: TEMP 97.8
[2019-07-19 15:09] VITALS: BP 154/100; PULSE 89
== END 2019-07-19 15:09 | disposition home or self-care (01) ==
LOC: JINFUSION 11:01
PROVIDERS: ATTEND Internal Medicine Infectious Disease
DX: E11.69 Type 2 diabetes mellitus with other specified complication (principal); M86.171 Other acute osteomyelitis, right ankle and foot; B95.7 Other staphylococcus as the cause of diseases classified elsewhere
CPT/HCPCS: 82962; 96365; 96366; G0277; J0878

== ENCOUNTER 2019-07-20 09:07 | Day surgery (SDC) | payer OTHER ==
[2019-07-20] MEDS ORDERED: DAPTOMYCIN 750 MG in SODIUM CHLORIDE 100 ML IVPB ONE (09:30)
[2019-07-20 12:17] VITALS: TEMP 98
[2019-07-20 12:27] VITALS: BP 163/80; PULSE 77
== END 2019-07-20 12:33 | disposition home or self-care (01) ==
LOC: JINFUSION 09:07 → J7W 09:08 → JINFUSION 12:33
PROVIDERS: ATTEND Internal Medicine Infectious Disease
DX: E11.69 Type 2 diabetes mellitus with other specified complication (principal); M86.171 Other acute osteomyelitis, right ankle and foot; B95.7 Other staphylococcus as the cause of diseases classified elsewhere
CPT/HCPCS: J0878

== ENCOUNTER 2019-07-21 11:17 | Day surgery (SDC) | payer OTHER ==
[2019-07-21] MEDS ORDERED: DAPTOMYCIN 750 MG in SODIUM CHLORIDE 100 ML IVPB ONE (11:45)
[2019-07-21 12:25] VITALS: TEMP 98
[2019-07-21 14:44] VITALS: BP 129/30; PULSE 60
== END 2019-07-21 12:44 | disposition home or self-care (01) ==
LOC: JINFUSION 11:17 → J7W 11:18 → JINFUSION 12:44
PROVIDERS: ATTEND Internal Medicine Infectious Disease
DX: E11.69 Type 2 diabetes mellitus with other specified complication (principal); M86.171 Other acute osteomyelitis, right ankle and foot; B95.7 Other staphylococcus as the cause of diseases classified elsewhere
CPT/HCPCS: J0878

== ENCOUNTER 2019-07-22 11:10 | Day surgery (SDC) | payer OTHER ==
[2019-07-22] MEDS ORDERED: DAPTOMYCIN 750 MG in SODIUM CHLORIDE 100 ML IVPB ONE (11:30)
[2019-07-22 11:57] VITALS: TEMP 98.6
[2019-07-22 12:35] VITALS: BP 152/95; PULSE 90
== END 2019-07-22 12:35 | disposition home or self-care (01) ==
LOC: JINFUSION 11:10
PROVIDERS: ATTEND Internal Medicine Infectious Disease
DX: E11.69 Type 2 diabetes mellitus with other specified complication (principal); M86.171 Other acute osteomyelitis, right ankle and foot; B95.7 Other staphylococcus as the cause of diseases classified elsewhere; E11.621 Type 2 diabetes mellitus with foot ulcer; L97.512 Non-pressure chronic ulcer of other part of right foot with fat layer exposed
CPT/HCPCS: 82962; 96365; G0277; J0878

== ENCOUNTER 2019-07-23 10:54 | Day surgery (SDC) | payer OTHER | END 2019-07-23 12:22 | disposition home or self-care (01) | LOC: JINFUSION 10:54 ==

== ENCOUNTER 2019-07-24 10:46 | Day surgery (SDC) | payer OTHER | END 2019-07-24 11:50 | disposition home or self-care (01) | LOC: JINFUSION 10:46 ==

== ENCOUNTER 2019-07-25 12:14 | Day surgery (SDC) | payer OTHER | END 2019-07-25 13:15 | disposition home or self-care (01) | LOC: JINFUSION 12:14 ==

== ENCOUNTER 2019-07-27 09:25 | Day surgery (SDC) | payer OTHER ==
[2019-07-27 09:49] VITALS: PULSE 75; TEMP 97.9
[2019-07-27] MEDS ORDERED: DAPTOMYCIN 750 MG in SODIUM CHLORIDE 100 ML IVPB ONE (11:00)
[2019-07-27] MEDS ORDERED: DAPTOMYCIN 750 MG in SODIUM CHLORIDE 50 ML IVPB ONE (11:00)
[2019-07-27 12:58] VITALS: BP 160/90
== END 2019-07-27 12:25 | disposition home or self-care (01) ==
LOC: JINFUSION 09:25 → J7W 09:27 → JINFUSION 12:25
PROVIDERS: ATTEND Internal Medicine Infectious Disease
DX: E11.69 Type 2 diabetes mellitus with other specified complication (principal); M86.171 Other acute osteomyelitis, right ankle and foot; B95.7 Other staphylococcus as the cause of diseases classified elsewhere
CPT/HCPCS: 96365; J0878

== ENCOUNTER 2019-07-29 10:54 | Day surgery (SDC) | payer OTHER | END 2019-07-29 12:40 | disposition home or self-care (01) | LOC: JINFUSION 10:54 ==

== ENCOUNTER 2019-07-30 11:05 | Day surgery (SDC) | payer OTHER ==
[2019-07-30 11:44] LABS: HEMATOCRIT 37.7 % (35.4-49); HEMOGLOBIN 12.8 GM/dL (11.7-16.9); MCH 28.1 pg (25.7-33.7); MCHC 33.9 g/dl (32.0-35.9); MEAN PLT VOLUME 7.8 fl (7.5-11.1); PLATELET COUNT 277 K/MM3 (134-434); RBC 4.55 M/mm3 (4.00-5.60); RDW 14.5 % (11.9-15.9); WHITE BLOOD COUNT 7.5 K/mm3 (4.0-10.0)
[2019-07-30 13:28] VITALS: BP 141/79; PULSE 82; TEMP 97.9
[2019-07-30 14:28] LABS: ERYTHROCYTE SEDIMENTATION RATE 16 mm/hr (0-20)
== END 2019-07-30 13:25 | disposition home or self-care (01) ==
LOC: JINFUSION 11:05
PROVIDERS: ATTEND Internal Medicine Infectious Disease
DX: E11.69 Type 2 diabetes mellitus with other specified complication (principal); M86.171 Other acute osteomyelitis, right ankle and foot; B95.7 Other staphylococcus as the cause of diseases classified elsewhere; E11.621 Type 2 diabetes mellitus with foot ulcer; L97.512 Non-pressure chronic ulcer of other part of right foot with fat layer exposed
CPT/HCPCS: 36415; 82550; 82962; 85027; 85651; 86140; 96365; G0277; J0878

== ENCOUNTER 2019-07-31 11:33 | Day surgery (SDC) | payer OTHER ==
[2019-07-31 12:41] VITALS: TEMP 97.9
[2019-07-31] MEDS ORDERED: DAPTOMYCIN 750 MG in SODIUM CHLORIDE 100 ML IVPB ONE (12:45)
[2019-07-31 13:56] VITALS: BP 139/81; PULSE 84
== END 2019-07-31 13:20 | disposition home or self-care (01) ==
LOC: JINFUSION 11:33
PROVIDERS: ATTEND Internal Medicine Infectious Disease
DX: E11.69 Type 2 diabetes mellitus with other specified complication (principal); M86.171 Other acute osteomyelitis, right ankle and foot; B95.7 Other staphylococcus as the cause of diseases classified elsewhere
CPT/HCPCS: 82962; 96365; G0277; J0878

== ENCOUNTER 2019-08-01 10:52 | Day surgery (SDC) | payer OTHER ==
[2019-08-01 11:29] VITALS: TEMP 97.9
[2019-08-01 12:26] VITALS: BP 147/81; PULSE 86
== END 2019-08-01 12:20 | disposition home or self-care (01) ==
LOC: JINFUSION 10:52
PROVIDERS: ATTEND Internal Medicine Infectious Disease
DX: E11.69 Type 2 diabetes mellitus with other specified complication (principal); M86.171 Other acute osteomyelitis, right ankle and foot; B95.7 Other staphylococcus as the cause of diseases classified elsewhere
CPT/HCPCS: 82962; 96365; G0277; J0878

== ENCOUNTER 2021-12-26 08:18 | Inpatient (IN) | payer OTHER ==
[2021-12-26] MEDS ORDERED: VANCOMYCIN 1 GM in D5W (PRE-DOCKED) 1,000 MG/250 ML IVPB ONE (08:57)
[2021-12-26] MEDS ORDERED: VANCOMYCIN 1 GRAM (PRE-DOCKED) 1,000 MG/250 ML BAG IVPB ONE (09:12)
[2021-12-26 10:02] LABS: BASO % 0.7 % (0-2.0); EOS % 1.6 % (0-4.5); HEMATOCRIT 37.3 % (35.4-49); HEMOGLOBIN 12.6 GM/dL (11.7-16.9); LYMPH % 24.6 % (8-40); MCH 27.9 pg (25.7-33.7); MCHC 33.8 g/dl (32.0-35.9); MEAN CELL VOLUME 82.5 fl (80-96); MEAN PLT VOLUME 7.6 fl (7.5-11.1); MONO % 7.9 % (3.8-10.2); NEUT % 65.2 % (42.8-82.8); PLATELET COUNT 291 10^3/uL (134-434); RBC 4.51 M/mm3 (4.00-5.60); RDW 13.7 % (11.9-15.9)
[2021-12-26 10:08] LABS: INR 1.01 (0.83-1.09); PROTHROMBIN TIME (PATIENT) 11.6 SEC (9.7-13.0)
[2021-12-26 10:10] LABS: ACTIVATED PTT 32.5 SECONDS (25.2-36.5)
[2021-12-26 10:27] LABS: CALCIUM 9.4 mg/dL (8.5-10.1)
[2021-12-26 10:28] LABS: ALBUMIN 3.1 g/dl (3.4-5.0); BLOOD UREA NITROGEN 19.3 mg/dL (7-18)
[2021-12-26 10:32] LABS: TOT PROT 6.6 g/dl (6.4-8.2)
[2021-12-26 10:33] LABS: BILIRUBIN,TOTAL 0.3 mg/dL (0.2-1)
[2021-12-26 10:41] LABS: LACTIC ACID 2.2 mmol/L (0.4-2.0)
[2021-12-26 10:44] LABS: ERYTHROCYTE SEDIMENTATION RATE 46 mm/hr (0-20)
[2021-12-26] MEDS ORDERED: SODIUM CHLORIDE 0.9% 500 ML INFUS.BAG IV ONE (11:09)
[2021-12-26] MEDS ORDERED: ACETAMINOPHEN 325 MG TABLET (FP) PO PRN (13:30)
[2021-12-26 15:48] VITALS: BMI 35.4
[2021-12-26] MEDS: INSULIN SLIDING SCALE (NOVOLOG) 1 VIAL SQ SCH ×2 (16:17→21:15)
[2021-12-26] MEDS: HEPARIN NA (PORCINE) 5,000 UNITS/ML 1ML VIAL SQ SCH ×2 (16:17→21:35)
[2021-12-26] MEDS: metFORMIN HCL 500 MG TABLET (FP) PO SCH (18:06)
[2021-12-26] MEDS: CLINDAMYCIN HCL 150 MG CAPSULE (FP) PO SCH (21:15)
[2021-12-26] MEDS: INSULIN (LEVEMIR) 100 UNITS/ML UNITS SQ SCH (21:16)
[2021-12-27] MEDS: CLINDAMYCIN HCL 150 MG CAPSULE (FP) PO SCH ×3 (06:23→21:18)
[2021-12-27] MEDS: INSULIN SLIDING SCALE (NOVOLOG) 1 VIAL SQ SCH ×4 (06:23→21:20)
[2021-12-27] MEDS: metFORMIN HCL 500 MG TABLET (FP) PO SCH ×2 (08:08→17:55)
[2021-12-27] MEDS: GLIMEPIRIDE 4 MG TABLET PO SCH (08:08)
[2021-12-27 09:35] LABS: HEMATOCRIT 37.9 % (35.4-49); HEMOGLOBIN 13.2 GM/dL (11.7-16.9); MCH 28.7 pg (25.7-33.7); MCHC 34.9 g/dl (32.0-35.9); MEAN CELL VOLUME 82.2 fl (80-96); MEAN PLT VOLUME 7.9 fl (7.5-11.1); PLATELET COUNT 289 10^3/uL (134-434); RBC 4.61 M/mm3 (4.00-5.60); RDW 13.7 % (11.9-15.9); WHITE BLOOD COUNT 6.8 K/mm3 (4.0-10.0)
[2021-12-27] MEDS: ATORVASTATIN CA 10 MG TABLET (FP) PO SCH (09:57)
[2021-12-27] MEDS: LISINOPRIL 10 MG TABLET PO SCH (09:57)
[2021-12-27 10:07] LABS: CALCIUM 9.4 mg/dL (8.5-10.1)
[2021-12-27 10:08] LABS: BLOOD UREA NITROGEN 18.5 mg/dL (7-18); MAGNESIUM 1.5 mg/dL (1.8-2.4)
[2021-12-27 10:11] LABS: PHOSPHOROUS 3.4 mg/dL (2.5-4.9)
[2021-12-27] MEDS: ASPIRIN 81 MG CHEWABLE TABLETS PO SCH (17:03)
[2021-12-27] MEDS: HEPARIN NA (PORCINE) 5,000 UNITS/ML 1ML VIAL SQ SCH ×2 (17:03→21:15)
[2021-12-27] MEDS: INSULIN (LEVEMIR) 100 UNITS/ML UNITS SQ SCH (21:19)
[2021-12-28] MEDS: CLINDAMYCIN HCL 150 MG CAPSULE (FP) PO SCH ×3 (06:43→21:53)
[2021-12-28] MEDS: INSULIN SLIDING SCALE (NOVOLOG) 1 VIAL SQ SCH ×4 (06:45→21:55)
[2021-12-28] MEDS: GLIMEPIRIDE 4 MG TABLET PO SCH (08:25)
[2021-12-28] MEDS: metFORMIN HCL 500 MG TABLET (FP) PO SCH ×2 (08:25→18:10)
[2021-12-28] MEDS ORDERED: MAGNESIUM SULF 50% (8.12 MEQ/2 ML-1 GM VIAL) IVPB ONE (10:00)
[2021-12-28] MEDS: LISINOPRIL 10 MG TABLET PO SCH (10:15)
[2021-12-28] MEDS: levoFLOXacin 750 MG TABLET PO SCH (10:21)
[2021-12-28] MEDS: ATORVASTATIN CA 10 MG TABLET (FP) PO SCH ×2 (12:22→21:55)
[2021-12-28] MEDS: HEPARIN NA (PORCINE) 5,000 UNITS/ML 1ML VIAL SQ SCH ×2 (14:18→21:53)
[2021-12-28] MEDS: ASPIRIN 81 MG CHEWABLE TABLETS PO SCH (14:20)
[2021-12-28 15:11] LABS: EPI CELLS 4 /uL (0-25.1); HYALINE CASTS 1 /uL (0-3.1); PH,URINE 5.5 (5.0-8.0); URINE APPEARANCE CLEAR; URINE BACTERIA 2 /uL (0-1359); URINE BILIRUBIN NEGATIVE (NEGATIVE); URINE COLOR YELLOW; URINE GLUCOSE (UA) NEGATIVE (NEGATIVE); URINE KETONE NEGATIVE (NEGATIVE); URINE LEUK ESTERASE NEGATIVE (NEGATIVE); URINE NITRITE NEGATIVE (NEGATIVE); URINE PROTEIN 2+ (NEGATIVE); URINE RBC 13 /uL (0-23.9); URINE UROBILINOGEN 0.2 mg/dL (0.2-1.0); URINE WBC 3 /uL (0-25.8)
[2021-12-28] MEDS: INSULIN (LEVEMIR) 100 UNITS/ML UNITS SQ SCH (21:53)
[2021-12-28] MEDS ORDERED: ATORVASTATIN CA 10 MG TABLET (FP) PO SCH (22:00)
[2021-12-29] MEDS: CLINDAMYCIN HCL 150 MG CAPSULE (FP) PO SCH ×3 (06:48→22:00)
[2021-12-29] MEDS: levoFLOXacin 750 MG TABLET PO SCH (06:49)
[2021-12-29] MEDS: INSULIN SLIDING SCALE (NOVOLOG) 1 VIAL SQ SCH ×4 (06:51→22:00)
[2021-12-29] MEDS: metFORMIN HCL 500 MG TABLET (FP) PO SCH ×2 (08:42→17:47)
[2021-12-29] MEDS: GLIMEPIRIDE 4 MG TABLET PO SCH (08:42)
[2021-12-29 08:56] LABS: HEMATOCRIT 37.3 % (35.4-49); MCH 28.6 pg (25.7-33.7); MCHC 34.8 g/dl (32.0-35.9); MEAN CELL VOLUME 82.2 fl (80-96); MEAN PLT VOLUME 7.5 fl (7.5-11.1); PLATELET COUNT 317 10^3/uL (134-434); RBC 4.54 M/mm3 (4.00-5.60); RDW 13.8 % (11.9-15.9); WHITE BLOOD COUNT 6.8 K/mm3 (4.0-10.0)
[2021-12-29] MEDS: ASPIRIN 81 MG CHEWABLE TABLETS PO SCH (09:40)
[2021-12-29] MEDS: LISINOPRIL 10 MG TABLET PO SCH (09:40)
[2021-12-29] MEDS: HEPARIN NA (PORCINE) 5,000 UNITS/ML 1ML VIAL SQ SCH ×2 (09:40→21:59)
[2021-12-29 13:00] LABS: ANISOCYTOSIS 0; HELMET CELLS 0; HOWELL-JOLLY BODIES 0; MACROCYTOSIS 0; OVALOCYTE 0; ROULEAU 0; SICKELED CELLS 0; TARGET CELLS 0; TEAR DROP CELLS 0; TOXIC GRANULATION 0
[2021-12-29] MEDS: ATORVASTATIN CA 10 MG TABLET (FP) PO SCH (21:58)
[2021-12-29] MEDS: INSULIN (LEVEMIR) 100 UNITS/ML UNITS SQ SCH (22:00)
[2021-12-30] MEDS: levoFLOXacin 750 MG TABLET PO SCH (06:08)
[2021-12-30] MEDS: INSULIN SLIDING SCALE (NOVOLOG) 1 VIAL SQ SCH ×2 (06:51→11:27)
[2021-12-30] MEDS: GLIMEPIRIDE 4 MG TABLET PO SCH (08:50)
[2021-12-30] MEDS: metFORMIN HCL 500 MG TABLET (FP) PO SCH (08:50)
[2021-12-30] MEDS: LISINOPRIL 10 MG TABLET PO SCH (08:59)
[2021-12-30] MEDS: ASPIRIN 81 MG CHEWABLE TABLETS PO SCH (08:59)
[2021-12-30] MEDS: HEPARIN NA (PORCINE) 5,000 UNITS/ML 1ML VIAL SQ SCH (08:59)
[2021-12-30 10:05] LABS: HEMATOCRIT 39.1 % (35.4-49); HEMOGLOBIN 13.4 GM/dL (11.7-16.9); MCH 28.4 pg (25.7-33.7); MCHC 34.1 g/dl (32.0-35.9); MEAN CELL VOLUME 83.2 fl (80-96); MEAN PLT VOLUME 7.6 fl (7.5-11.1); PLATELET COUNT 328 10^3/uL (134-434); RBC 4.71 M/mm3 (4.00-5.60); RDW 13.9 % (11.9-15.9); WHITE BLOOD COUNT 7.5 K/mm3 (4.0-10.0)
[2021-12-30 10:25] LABS: CALCIUM 9.2 mg/dL (8.5-10.1)
[2021-12-30 10:26] LABS: BLOOD UREA NITROGEN 20.3 mg/dL (7-18)
[2021-12-30 10:29] LABS: CREATININE 1.2 mg/dL (0.55-1.3)
[2021-12-30 12:45] LABS: ANISOCYTOSIS 0; MACROCYTOSIS 0
[2021-12-30 12:46] LABS: PLATELET ESTIMATE NORMAL
[2021-12-30 14:41] VITALS: BP 121/64; PULSE 93; TEMP 98.7
[2021-12-30] MEDS ORDERED: CLINDAMYCIN HCL 150 MG CAPSULE (FP) PO SCH (18:00)
== END 2021-12-30 15:37 | disposition home or self-care (01) | DRG 603 ==
LOC: JER 08:18 → JERBED 10:38 → J5S 15:14
PROVIDERS: ADMIT Internal Medicine; ATTEND Internal Medicine
DX: L03.116 Cellulitis of left lower limb (principal); I10 Essential (primary) hypertension; E78.5 Hyperlipidemia, unspecified; E11.9 Type 2 diabetes mellitus without complications; Z89.429 Acquired absence of other toe(s), unspecified side; Z89.431 Acquired absence of right foot
CPT/HCPCS: 36415; 73590-TC-LT-FY; 73630-TC-LT; 80048; 80053; 81003; 82962; 83605; 83735; 84100; 85025; 85027; 85610; 85651; 85730; 86140; 86850; 86900; 86901; 87040; 93005; 93010; 93971-TC; 99285-25; C9803; J1644; U0003; U0005

== ENCOUNTER 2022-06-26 10:51 | Inpatient (IN) | payer OTHER ==
[2022-06-26] MEDS ORDERED: levoFLOXacin 750 MG TABLET PO SCH (12:15)
[2022-06-26 12:44] LABS: BASO % 1.4 % (0-2.0); EOS % 1.7 % (0-4.5); HEMATOCRIT 38.4 % (35.4-49); HEMOGLOBIN 13.1 GM/dL (11.7-16.9); LYMPH % 32.1 % (8-40); MCH 28.3 pg (25.7-33.7); MEAN CELL VOLUME 83.2 fl (80-96); MONO % 7.6 % (3.8-10.2); NEUT % 57.2 % (42.8-82.8); PLATELET COUNT 319 10^3/uL (134-434); RBC 4.61 M/mm3 (4.00-5.60); RDW 13.8 % (11.9-15.9); WHITE BLOOD COUNT 6.9 K/mm3 (4.0-10.0)
[2022-06-26 13:03] LABS: ALBUMIN 3.3 g/dl (3.4-5.0)
[2022-06-26 13:06] LABS: CREATININE 1.2 mg/dL (0.55-1.3)
[2022-06-26 13:08] LABS: BILIRUBIN,TOTAL 0.3 mg/dL (0.2-1); TOT PROT 6.9 g/dl (6.4-8.2)
[2022-06-26 13:25] LABS: ERYTHROCYTE SEDIMENTATION RATE 22 mm/hr (0-20)
[2022-06-26] MEDS ORDERED: CLINDAMYCIN HCL 150 MG CAPSULE (FP) ONE (18:03)
[2022-06-26] MEDS: CLINDAMYCIN HCL 150 MG CAPSULE (FP) PO SCH (18:29)
[2022-06-26] MEDS: ATORVASTATIN CA 10 MG TABLET (FP) PO SCH (23:05)
[2022-06-26] MEDS: INSULIN SLIDING SCALE (NOVOLOG) 1 VIAL SQ SCH (23:05)
[2022-06-26] MEDS: INSULIN (LEVEMIR) 100 UNITS/ML UNITS SQ SCH (23:56)
[2022-06-27] MEDS ORDERED: LISINOPRIL 10 MG TABLET PO ONE (01:09)
[2022-06-27] MEDS ORDERED: CLINDAMYCIN HCL 150 MG CAPSULE (FP) ONE (01:13)
[2022-06-27] MEDS: CLINDAMYCIN HCL 150 MG CAPSULE (FP) PO SCH ×5 (01:22→23:00)
[2022-06-27 04:43] VITALS: BMI 35.9
[2022-06-27] MEDS: levoFLOXacin 750 MG TABLET PO SCH (07:09)
[2022-06-27] MEDS: INSULIN SLIDING SCALE (NOVOLOG) 1 VIAL SQ SCH ×4 (07:17→22:59)
[2022-06-27] MEDS: metFORMIN HCL 500 MG TABLET (FP) PO SCH ×2 (08:07→17:10)
[2022-06-27] MEDS: GLIMEPIRIDE 4 MG TABLET PO SCH (08:07)
[2022-06-27] MEDS: LISINOPRIL 10 MG TABLET PO SCH (09:24)
[2022-06-27] MEDS: ENOXAPARIN NA (PORCINE) 40 MG/0.4 ML DISP.SYRIN SQ SCH (09:24)
[2022-06-27] MEDS ORDERED: LISINOPRIL 10 MG TABLET PO SCH (10:00)
[2022-06-27] MEDS: MUPIROCIN 2% TOPICAL OINTMENT 22 GM TUBE TP SCH ×2 (13:01→22:59)
[2022-06-27] MEDS ORDERED: amLODIPine BESYLATE 5 MG TABLET (FP) PO ONE (18:13)
[2022-06-27] MEDS: INSULIN (LEVEMIR) 100 UNITS/ML UNITS SQ SCH (22:58)
[2022-06-27] MEDS: ATORVASTATIN CA 10 MG TABLET (FP) PO SCH (22:58)
[2022-06-28] MEDS: GLIMEPIRIDE 4 MG TABLET PO SCH (06:23)
[2022-06-28] MEDS: metFORMIN HCL 500 MG TABLET (FP) PO SCH ×2 (06:23→17:00)
[2022-06-28] MEDS: INSULIN SLIDING SCALE (NOVOLOG) 1 VIAL SQ SCH ×4 (06:24→21:05)
[2022-06-28] MEDS: MUPIROCIN 2% TOPICAL OINTMENT 22 GM TUBE TP SCH ×3 (06:26→21:04)
[2022-06-28] MEDS: CLINDAMYCIN HCL 150 MG CAPSULE (FP) PO SCH ×3 (06:41→17:38)
[2022-06-28] MEDS: levoFLOXacin 750 MG TABLET PO SCH (06:42)
[2022-06-28] MEDS: LISINOPRIL 10 MG TABLET PO SCH (09:18)
[2022-06-28] MEDS: ENOXAPARIN NA (PORCINE) 40 MG/0.4 ML DISP.SYRIN SQ SCH (09:18)
[2022-06-28] MEDS: amLODIPine BESYLATE 5 MG TABLET (FP) PO SCH (09:23)
[2022-06-28 09:30] LABS: BASO % 0.7 % (0-2.0); EOS % 2.1 % (0-4.5); HEMATOCRIT 40.4 % (35.4-49); HEMOGLOBIN 14.2 GM/dL (11.7-16.9); LYMPH % 25.6 % (8-40); MCH 28.9 pg (25.7-33.7); MEAN CELL VOLUME 82.5 fl (80-96); MEAN PLT VOLUME 8.2 fl (7.5-11.1); MONO % 7.2 % (3.8-10.2); NEUT % 64.4 % (42.8-82.8); PLATELET COUNT 339 10^3/uL (134-434); RDW 14.1 % (11.9-15.9)
[2022-06-28 10:15] LABS: ALBUMIN 3.4 g/dl (3.4-5.0); CALCIUM 9.5 mg/dL (8.5-10.1); MAGNESIUM 1.5 mg/dL (1.8-2.4)
[2022-06-28 10:16] LABS: BLOOD UREA NITROGEN 20.6 mg/dL (7-18)
[2022-06-28 10:18] LABS: CREATININE 1.2 mg/dL (0.55-1.3)
[2022-06-28 10:20] LABS: BILIRUBIN,TOTAL 0.4 mg/dL (0.2-1); TOT PROT 7.5 g/dl (6.4-8.2)
[2022-06-28] MEDS ORDERED: MAGNESIUM OXIDE 400 MG TABLET (FP) PO ONE (11:32)
[2022-06-28] MEDS ORDERED: ACETAMINOPHEN 325 MG TABLET (FP) PO PRN (18:32)
[2022-06-28] MEDS ORDERED: INSULIN (NOVOLOG) ASPART 100 UNITS/ML 10ML VIAL ONE (20:50)
[2022-06-28] MEDS: INSULIN (LEVEMIR) 100 UNITS/ML UNITS SQ SCH (21:04)
[2022-06-28] MEDS: ATORVASTATIN CA 10 MG TABLET (FP) PO SCH (21:05)
[2022-06-29] MEDS: CLINDAMYCIN HCL 150 MG CAPSULE (FP) PO SCH ×4 (00:02→17:12)
[2022-06-29] MEDS: MUPIROCIN 2% TOPICAL OINTMENT 22 GM TUBE TP SCH ×3 (06:27→22:37)
[2022-06-29] MEDS: metFORMIN HCL 500 MG TABLET (FP) PO SCH ×2 (06:27→16:57)
[2022-06-29] MEDS: GLIMEPIRIDE 4 MG TABLET PO SCH (06:28)
[2022-06-29] MEDS: levoFLOXacin 750 MG TABLET PO SCH (06:28)
[2022-06-29] MEDS: INSULIN SLIDING SCALE (NOVOLOG) 1 VIAL SQ SCH ×4 (06:43→22:39)
[2022-06-29 09:08] LABS: BASO % 0.8 % (0-2.0); EOS % 2.2 % (0-4.5); HEMATOCRIT 39.4 % (35.4-49); LYMPH % 24.5 % (8-40); MCH 29.2 pg (25.7-33.7); MCHC 35.7 g/dl (32.0-35.9); MEAN PLT VOLUME 7.9 fl (7.5-11.1); MONO % 7.6 % (3.8-10.2); NEUT % 64.9 % (42.8-82.8); PLATELET COUNT 311 10^3/uL (134-434); RDW 13.8 % (11.9-15.9); WHITE BLOOD COUNT 7.7 K/mm3 (4.0-10.0)
[2022-06-29 09:37] LABS: CALCIUM 9.1 mg/dL (8.5-10.1)
[2022-06-29 09:38] LABS: ALBUMIN 3.4 g/dl (3.4-5.0); BLOOD UREA NITROGEN 21.5 mg/dL (7-18); MAGNESIUM 1.6 mg/dL (1.8-2.4)
[2022-06-29 09:41] LABS: CREATININE 1.1 mg/dL (0.55-1.3)
[2022-06-29 09:47] LABS: BILIRUBIN,TOTAL 0.5 mg/dL (0.2-1); TOT PROT 7.3 g/dl (6.4-8.2)
[2022-06-29] MEDS: ENOXAPARIN NA (PORCINE) 40 MG/0.4 ML DISP.SYRIN SQ SCH (10:08)
[2022-06-29] MEDS: LISINOPRIL 10 MG TABLET PO SCH (10:08)
[2022-06-29] MEDS: amLODIPine BESYLATE 5 MG TABLET (FP) PO SCH (10:09)
[2022-06-29] MEDS: ATORVASTATIN CA 10 MG TABLET (FP) PO SCH (22:41)
[2022-06-29] MEDS: INSULIN (LEVEMIR) 100 UNITS/ML UNITS SQ SCH (22:41)
[2022-06-30] MEDS: CLINDAMYCIN HCL 150 MG CAPSULE (FP) PO SCH ×5 (00:45→23:06)
[2022-06-30] MEDS: levoFLOXacin 750 MG TABLET PO SCH (07:10)
[2022-06-30] MEDS: GLIMEPIRIDE 4 MG TABLET PO SCH (07:10)
[2022-06-30] MEDS: metFORMIN HCL 500 MG TABLET (FP) PO SCH ×2 (07:10→17:33)
[2022-06-30] MEDS: MUPIROCIN 2% TOPICAL OINTMENT 22 GM TUBE TP SCH (07:11)
[2022-06-30] MEDS: INSULIN SLIDING SCALE (NOVOLOG) 1 VIAL SQ SCH ×4 (07:11→21:48)
[2022-06-30 09:16] LABS: BASO % 0.6 % (0-2.0); EOS % 1.9 % (0-4.5); HEMATOCRIT 39.7 % (35.4-49); LYMPH % 29.9 % (8-40); MCHC 35.4 g/dl (32.0-35.9); MEAN CELL VOLUME 82.1 fl (80-96); MONO % 7.5 % (3.8-10.2); NEUT % 60.1 % (42.8-82.8); PLATELET COUNT 306 10^3/uL (134-434); RBC 4.83 M/mm3 (4.00-5.60); RDW 14.1 % (11.9-15.9)
[2022-06-30 09:46] LABS: CALCIUM 8.9 mg/dL (8.5-10.1)
[2022-06-30 09:47] LABS: ALBUMIN 3.2 g/dl (3.4-5.0); BLOOD UREA NITROGEN 24.3 mg/dL (7-18); MAGNESIUM 1.6 mg/dL (1.8-2.4)
[2022-06-30 09:50] LABS: CREATININE 1.3 mg/dL (0.55-1.3)
[2022-06-30 09:51] LABS: TOT PROT 7.1 g/dl (6.4-8.2)
[2022-06-30 09:52] LABS: BILIRUBIN,TOTAL 0.4 mg/dL (0.2-1)
[2022-06-30] MEDS: LISINOPRIL 10 MG TABLET PO SCH (10:09)
[2022-06-30] MEDS: amLODIPine BESYLATE 5 MG TABLET (FP) PO SCH (10:09)
[2022-06-30] MEDS: ENOXAPARIN NA (PORCINE) 40 MG/0.4 ML DISP.SYRIN SQ SCH (10:09)
[2022-06-30] MEDS: ATORVASTATIN CA 10 MG TABLET (FP) PO SCH (21:46)
[2022-06-30] MEDS: INSULIN (LEVEMIR) 100 UNITS/ML UNITS SQ SCH (21:48)
[2022-07-01] MEDS: CLINDAMYCIN HCL 150 MG CAPSULE (FP) PO SCH ×4 (06:09→17:30)
[2022-07-01] MEDS: GLIMEPIRIDE 4 MG TABLET PO SCH ×2 (06:11→09:53)
[2022-07-01] MEDS: metFORMIN HCL 500 MG TABLET (FP) PO SCH ×2 (06:11→16:32)
[2022-07-01] MEDS: levoFLOXacin 750 MG TABLET PO SCH ×2 (06:11→09:53)
[2022-07-01] MEDS: INSULIN SLIDING SCALE (NOVOLOG) 1 VIAL SQ SCH ×4 (06:15→21:48)
[2022-07-01] MEDS: amLODIPine BESYLATE 5 MG TABLET (FP) PO SCH (09:51)
[2022-07-01] MEDS: ENOXAPARIN NA (PORCINE) 40 MG/0.4 ML DISP.SYRIN SQ SCH (09:54)
[2022-07-01] MEDS: MUPIROCIN 2% TOPICAL OINTMENT 22 GM TUBE TP SCH (09:54)
[2022-07-01] MEDS: LISINOPRIL 10 MG TABLET PO SCH (09:54)
[2022-07-01] MEDS: INSULIN (LEVEMIR) 100 UNITS/ML UNITS SQ SCH (21:48)
[2022-07-01] MEDS: ATORVASTATIN CA 10 MG TABLET (FP) PO SCH (21:48)
[2022-07-02] MEDS: CLINDAMYCIN HCL 150 MG CAPSULE (FP) PO SCH ×5 (00:04→23:12)
[2022-07-02] MEDS: GLIMEPIRIDE 4 MG TABLET PO SCH (06:17)
[2022-07-02] MEDS: levoFLOXacin 750 MG TABLET PO SCH (06:17)
[2022-07-02] MEDS: metFORMIN HCL 500 MG TABLET (FP) PO SCH ×2 (06:18→17:18)
[2022-07-02] MEDS: INSULIN SLIDING SCALE (NOVOLOG) 1 VIAL SQ SCH ×4 (06:19→21:50)
[2022-07-02] MEDS: ENOXAPARIN NA (PORCINE) 40 MG/0.4 ML DISP.SYRIN SQ SCH (09:23)
[2022-07-02] MEDS: LISINOPRIL 10 MG TABLET PO SCH (09:23)
[2022-07-02] MEDS: amLODIPine BESYLATE 5 MG TABLET (FP) PO SCH (09:24)
[2022-07-02] MEDS: MUPIROCIN 2% TOPICAL OINTMENT 22 GM TUBE TP SCH (09:24)
[2022-07-02] MEDS: ATORVASTATIN CA 10 MG TABLET (FP) PO SCH (21:50)
[2022-07-02] MEDS: INSULIN (LEVEMIR) 100 UNITS/ML UNITS SQ SCH (21:51)
[2022-07-03] MEDS: INSULIN SLIDING SCALE (NOVOLOG) 1 VIAL SQ SCH ×4 (06:31→21:37)
[2022-07-03] MEDS: metFORMIN HCL 500 MG TABLET (FP) PO SCH ×2 (06:32→17:21)
[2022-07-03] MEDS: GLIMEPIRIDE 4 MG TABLET PO SCH (06:32)
[2022-07-03] MEDS: levoFLOXacin 750 MG TABLET PO SCH (06:32)
[2022-07-03] MEDS: CLINDAMYCIN HCL 150 MG CAPSULE (FP) PO SCH ×4 (06:32→23:28)
[2022-07-03 09:24] LABS: BASO % 1.3 % (0-2.0); EOS % 2.2 % (0-4.5); HEMATOCRIT 41.5 % (35.4-49); HEMOGLOBIN 14.2 GM/dL (11.7-16.9); LYMPH % 28.6 % (8-40); MCH 28.3 pg (25.7-33.7); MCHC 34.1 g/dl (32.0-35.9); MEAN CELL VOLUME 82.8 fl (80-96); MEAN PLT VOLUME 8.3 fl (7.5-11.1); MONO % 7.4 % (3.8-10.2); NEUT % 60.5 % (42.8-82.8); PLATELET COUNT 272 10^3/uL (134-434); RBC 5.01 M/mm3 (4.00-5.60); RDW 14.1 % (11.9-15.9); WHITE BLOOD COUNT 7.4 K/mm3 (4.0-10.0)
[2022-07-03 09:28] LABS: INR 1.02 (0.83-1.09); PROTHROMBIN TIME (PATIENT) 11.7 SEC (9.7-13.0)
[2022-07-03 09:31] LABS: ALBUMIN 3.3 g/dl (3.4-5.0); BLOOD UREA NITROGEN 24.2 mg/dL (7-18); CALCIUM 8.9 mg/dL (8.5-10.1); MAGNESIUM 1.6 mg/dL (1.8-2.4)
[2022-07-03 09:34] LABS: CREATININE 1.2 mg/dL (0.55-1.3)
[2022-07-03 09:36] LABS: BILIRUBIN,TOTAL 0.6 mg/dL (0.2-1); TOT PROT 7.1 g/dl (6.4-8.2)
[2022-07-03] MEDS: amLODIPine BESYLATE 5 MG TABLET (FP) PO SCH (10:25)
[2022-07-03] MEDS: ENOXAPARIN NA (PORCINE) 40 MG/0.4 ML DISP.SYRIN SQ SCH (10:28)
[2022-07-03] MEDS: LISINOPRIL 10 MG TABLET PO SCH (10:28)
[2022-07-03] MEDS: MUPIROCIN 2% TOPICAL OINTMENT 22 GM TUBE TP SCH (10:28)
[2022-07-03] MEDS: ATORVASTATIN CA 10 MG TABLET (FP) PO SCH ×2 (21:37→21:41)
[2022-07-03] MEDS: INSULIN (LEVEMIR) 100 UNITS/ML UNITS SQ SCH (21:37)
[2022-07-04] MEDS: CLINDAMYCIN HCL 150 MG CAPSULE (FP) PO SCH ×4 (06:51→23:59)
[2022-07-04] MEDS: GLIMEPIRIDE 4 MG TABLET PO SCH (06:52)
[2022-07-04] MEDS: INSULIN SLIDING SCALE (NOVOLOG) 1 VIAL SQ SCH ×4 (06:52→21:10)
[2022-07-04] MEDS: metFORMIN HCL 500 MG TABLET (FP) PO SCH ×3 (06:52→17:16)
[2022-07-04] MEDS: levoFLOXacin 750 MG TABLET PO SCH (06:52)
[2022-07-04] MEDS: ENOXAPARIN NA (PORCINE) 40 MG/0.4 ML DISP.SYRIN SQ SCH (09:38)
[2022-07-04] MEDS: LISINOPRIL 10 MG TABLET PO SCH (09:39)
[2022-07-04] MEDS: amLODIPine BESYLATE 5 MG TABLET (FP) PO SCH (09:53)
[2022-07-04] MEDS: MUPIROCIN 2% TOPICAL OINTMENT 22 GM TUBE TP SCH (09:53)
[2022-07-04 12:33] LABS: BASO % 0.6 % (0-2.0); EOS % 1.7 % (0-4.5); HEMATOCRIT 41.1 % (35.4-49); HEMOGLOBIN 14.3 GM/dL (11.7-16.9); LYMPH % 28.5 % (8-40); MCH 28.9 pg (25.7-33.7); MCHC 34.7 g/dl (32.0-35.9); MEAN CELL VOLUME 83.4 fl (80-96); MEAN PLT VOLUME 8.2 fl (7.5-11.1); MONO % 7.4 % (3.8-10.2); NEUT % 61.8 % (42.8-82.8); PLATELET COUNT 278 10^3/uL (134-434); RBC 4.93 M/mm3 (4.00-5.60); RDW 14.1 % (11.9-15.9); WHITE BLOOD COUNT 6.6 K/mm3 (4.0-10.0)
[2022-07-04 12:55] LABS: ALBUMIN 3.5 g/dl (3.4-5.0); BLOOD UREA NITROGEN 24.4 mg/dL (7-18); CALCIUM 9.4 mg/dL (8.5-10.1)
[2022-07-04 12:56] LABS: MAGNESIUM 1.7 mg/dL (1.8-2.4)
[2022-07-04 12:58] LABS: CREATININE 1.2 mg/dL (0.55-1.3)
[2022-07-04 12:59] LABS: TOT PROT 7.4 g/dl (6.4-8.2)
[2022-07-04 13:00] LABS: BILIRUBIN,TOTAL 0.4 mg/dL (0.2-1)
[2022-07-04 16:12] LABS: INR 1.03 (0.83-1.09); PROTHROMBIN TIME (PATIENT) 11.9 SEC (9.7-13.0)
[2022-07-04] MEDS: INSULIN (LEVEMIR) 100 UNITS/ML UNITS SQ SCH (21:09)
[2022-07-04] MEDS: ATORVASTATIN CA 10 MG TABLET (FP) PO SCH (21:09)
[2022-07-05] MEDS: CLINDAMYCIN HCL 150 MG CAPSULE (FP) PO SCH ×3 (06:01→17:34)
[2022-07-05] MEDS: levoFLOXacin 750 MG TABLET PO SCH (06:01)
[2022-07-05] MEDS: GLIMEPIRIDE 4 MG TABLET PO SCH (06:30)
[2022-07-05] MEDS: metFORMIN HCL 500 MG TABLET (FP) PO SCH ×2 (06:30→17:34)
[2022-07-05] MEDS: INSULIN SLIDING SCALE (NOVOLOG) 1 VIAL SQ SCH ×4 (06:32→21:15)
[2022-07-05] MEDS ORDERED: LIDOCAINE HCL 1%, 10 MG/ML (20ML VIAL) ONE (07:10)
[2022-07-05] MEDS ORDERED: BUPIVACAINE HCL/PF 0.5% (5MG/ML) 10 ML VIAL ONE (07:10)
[2022-07-05] MEDS ORDERED: GENTAMICIN SO4 80 MG/2 ML VIAL ONE (07:11)
[2022-07-05] MEDS ORDERED: DEXAMETHASONE SOD PHOSPHATE 4 MG/1 ML VIAL ONE (07:18)
[2022-07-05] MEDS ORDERED: MIDAZOLAM HCL 2 MG/2 ML SINGLE DOSE VIAL ONE (07:43)
[2022-07-05] MEDS ORDERED: BUPIVACAINE HCL/PF 0.5% (5MG/ML) 10 ML VIAL IJ ONE (07:49)
[2022-07-05] MEDS ORDERED: LIDOCAINE HCL 1%, 10 MG/ML (20ML VIAL) INF ONE (07:49)
[2022-07-05] MEDS ORDERED: CLINDAMYCIN 900 MG PREMIX BAG IVPB ONE (07:59)
[2022-07-05] MEDS ORDERED: ACETAMINOPHEN 325 MG TABLET (FP) PO PRN (08:45)
[2022-07-05] MEDS ORDERED: ONDANSETRON 4 MG/2 ML VIAL IVPUSH PRN (09:41)
[2022-07-05] MEDS ORDERED: LACTATED RINGERS SOLUTION 1,000 ML IV SCH (09:45)
[2022-07-05] MEDS: LISINOPRIL 20 MG TABLET PO SCH (09:55)
[2022-07-05] MEDS: MUPIROCIN 2% TOPICAL OINTMENT 22 GM TUBE TP SCH (09:57)
[2022-07-05 16:45] LABS: BASO % 0.7 % (0-2.0); MEAN CELL VOLUME 82.9 fl (80-96); MEAN PLT VOLUME 8.7 fl (7.5-11.1); WHITE BLOOD COUNT 7.4 K/mm3 (4.0-10.0)
[2022-07-05 17:19] LABS: ALBUMIN 3.2 g/dl (3.4-5.0); CALCIUM 8.9 mg/dL (8.5-10.1); MAGNESIUM 1.7 mg/dL (1.8-2.4)
[2022-07-05 17:20] LABS: BLOOD UREA NITROGEN 25.1 mg/dL (7-18)
[2022-07-05 17:22] LABS: CREATININE 1.2 mg/dL (0.55-1.3); EOS % 1.4 % (0-4.5); HEMATOCRIT 39.5 % (35.4-49); HEMOGLOBIN 13.6 GM/dL (11.7-16.9); LYMPH % 28.6 % (8-40); MCH 28.5 pg (25.7-33.7); MCHC 34.4 g/dl (32.0-35.9); MONO % 9.2 % (3.8-10.2); NEUT % 60.1 % (42.8-82.8); PLATELET COUNT 276 10^3/uL (134-434); RBC 4.77 M/mm3 (4.00-5.60); RDW 13.7 % (11.9-15.9)
[2022-07-05 17:26] LABS: BILIRUBIN,TOTAL 0.7 mg/dL (0.2-1); TOT PROT 6.7 g/dl (6.4-8.2)
[2022-07-05] MEDS ORDERED: INSULIN (NOVOLOG) ASPART 100 UNITS/ML 10ML VIAL ONE (20:35)
[2022-07-05] MEDS: INSULIN (LEVEMIR) 100 UNITS/ML UNITS SQ SCH (21:16)
[2022-07-05] MEDS: ATORVASTATIN CA 10 MG TABLET (FP) PO SCH (21:18)
[2022-07-06] MEDS: CLINDAMYCIN HCL 150 MG CAPSULE (FP) PO SCH ×4 (00:08→17:25)
[2022-07-06] MEDS: levoFLOXacin 750 MG TABLET PO SCH (06:17)
[2022-07-06] MEDS: metFORMIN HCL 500 MG TABLET (FP) PO SCH ×2 (06:17→17:21)
[2022-07-06] MEDS: GLIMEPIRIDE 4 MG TABLET PO SCH (06:17)
[2022-07-06] MEDS: INSULIN SLIDING SCALE (NOVOLOG) 1 VIAL SQ SCH ×4 (06:21→21:52)
[2022-07-06 06:50] VITALS: RESP 18
[2022-07-06] MEDS: LISINOPRIL 20 MG TABLET PO SCH (09:29)
[2022-07-06] MEDS: MUPIROCIN 2% TOPICAL OINTMENT 22 GM TUBE TP SCH (10:11)
[2022-07-06] MEDS: INSULIN (LEVEMIR) 100 UNITS/ML UNITS SQ SCH (21:51)
[2022-07-06] MEDS: ATORVASTATIN CA 10 MG TABLET (FP) PO SCH ×2 (21:51→21:54)
[2022-07-07] MEDS: CLINDAMYCIN HCL 150 MG CAPSULE (FP) PO SCH ×4 (00:30→17:13)
[2022-07-07] MEDS: levoFLOXacin 750 MG TABLET PO SCH (06:28)
[2022-07-07] MEDS: GLIMEPIRIDE 4 MG TABLET PO SCH (06:28)
[2022-07-07] MEDS: metFORMIN HCL 500 MG TABLET (FP) PO SCH ×2 (06:28→16:19)
[2022-07-07] MEDS: INSULIN SLIDING SCALE (NOVOLOG) 1 VIAL SQ SCH ×3 (06:35→16:15)
[2022-07-07] MEDS: LISINOPRIL 20 MG TABLET PO SCH (10:09)
[2022-07-07] MEDS: MUPIROCIN 2% TOPICAL OINTMENT 22 GM TUBE TP SCH (13:56)
[2022-07-07 14:39] VITALS: BP 131/98; PULSE 97; TEMP 98.5
== END 2022-07-07 17:51 | disposition home or self-care (01) | DRG 617 ==
LOC: JER 10:51 → JERBED 12:09 → J6S 06-27 04:10
PROVIDERS: ADMIT Internal Medicine; ATTEND Nurse Practitioner Acute Care
PROC: 0Y6X0Z1 Detachment at Right 5th Toe, High, Open Approach (ICD-10-PCS; 2022-07-05)
PROC: 0Y6V0Z1 Detachment at Right 4th Toe, High, Open Approach (ICD-10-PCS; principal; 2022-07-05 08:01)
DX: E11.69 Type 2 diabetes mellitus with other specified complication (principal); A52.16 Charcot's arthropathy (tabetic); L03.115 Cellulitis of right lower limb; L97.518 Non-pressure chronic ulcer of other part of right foot with other specified severity; M86.8X7 Other osteomyelitis, ankle and foot; E11.52 Type 2 diabetes mellitus with diabetic peripheral angiopathy with gangrene; I96 Gangrene, not elsewhere classified; E11.621 Type 2 diabetes mellitus with foot ulcer; E11.40 Type 2 diabetes mellitus with diabetic neuropathy, unspecified; I10 Essential (primary) hypertension; E78.00 Pure hypercholesterolemia, unspecified; E78.5 Hyperlipidemia, unspecified; E66.9 Obesity, unspecified; Z68.35 Body mass index [BMI] 35.0-35.9, adult; E11.65 Type 2 diabetes mellitus with hyperglycemia; E11.628 Type 2 diabetes mellitus with other skin complications; L08.9 Local infection of the skin and subcutaneous tissue, unspecified; Z53.29 Procedure and treatment not carried out because of patient's decision for other reasons; Z89.421 Acquired absence of other right toe(s)
CPT/HCPCS: 36415; 73630-TC-RT-FY; 73660-TC-FY; 73718-TC-RT; 80053; 82962; 83036; 83735; 85025; 85610; 85651; 86140; 88305-TC; 88311-TC; 93005; 93010; 93922; 93925-TC; 94760; 99285-25; C9803-CS; U0003; U0005

== ENCOUNTER 2023-10-06 09:34 | Inpatient (IN) | payer OTHER ==
[2023-10-06 09:41] VITALS: BMI 35.6
[2023-10-06 11:22] LABS: BASO % 0.6 % (0-2.0); EOS % 1.4 % (0-4.5); HEMATOCRIT 41.1 % (35.4-49); HEMOGLOBIN 13.5 GM/dL (11.7-16.9); LYMPH % 24.1 % (8-40); MCH 27.5 pg (25.7-33.7); MCHC 32.7 g/dl (32.0-35.9); MEAN PLT VOLUME 7.8 fl (7.5-11.1); MONO % 7.8 % (3.8-10.2); NEUT % 66.1 % (42.8-82.8); PLATELET COUNT 391 10^3/uL (134-434); RBC 4.89 M/mm3 (4.00-5.60); WHITE BLOOD COUNT 9.7 K/mm3 (4.0-10.0)
[2023-10-06 11:28] LABS: INR 1.07 (0.83-1.09); PROTHROMBIN TIME (PATIENT) 12.4 SEC (9.7-13.0)
[2023-10-06 11:40] LABS: POTASSIUM 4.7 mmol/L (3.5-5.1)
[2023-10-06 11:42] LABS: ALBUMIN 3.4 g/dl (3.4-5.0); CALCIUM 9.2 mg/dL (8.5-10.1); MAGNESIUM 1.5 mg/dL (1.8-2.4)
[2023-10-06 11:45] LABS: CREATININE 1.3 mg/dL (0.55-1.3)
[2023-10-06 11:47] LABS: BILIRUBIN,TOTAL 0.4 mg/dL (0.2-1); TOT PROT 7.2 g/dl (6.4-8.2)
[2023-10-06 12:28] LABS: ERYTHROCYTE SEDIMENTATION RATE 23 mm/hr (0-20)
[2023-10-06] MEDS ORDERED: MAGNESIUM SULF 50% (8.12 MEQ/2 ML-1 GM VIAL) IVPB ONE (13:27)
[2023-10-06] MEDS ORDERED: LISINOPRIL 20 MG TABLET PO ONE (14:14)
[2023-10-06] MEDS: VANCOMYCIN/WATER 1250 MG 1,250 MG/250 ML BAG IVPB SCH ×2 (16:28→17:04)
[2023-10-06] MEDS ORDERED: INSULIN (NOVOLOG) ASPART 100 UNITS/ML 10ML VIAL SQ SCH (16:30)
[2023-10-06] MEDS: INSULIN SLIDING SCALE (NOVOLOG) 1 VIAL SQ SCH ×3 (17:22→22:33)
[2023-10-06] MEDS ORDERED: INSULIN (LEVEMIR) 100 UNITS/ML UNITS SQ SCH ×2 (22:00)
[2023-10-06] MEDS: INSULIN (LEVEMIR) 100 UNITS/ML UNITS SQ SCH (22:23)
[2023-10-06] MEDS: ATORVASTATIN CA 10 MG TABLET (FP) PO SCH ×2 (22:23→22:33)
[2023-10-07] MEDS: VANCOMYCIN/WATER 1250 MG 1,250 MG/250 ML BAG IVPB SCH ×2 (04:28→15:28)
[2023-10-07] MEDS: INSULIN SLIDING SCALE (NOVOLOG) 1 VIAL SQ SCH ×4 (06:04→22:12)
[2023-10-07] MEDS ORDERED: MAGNESIUM SULF 50% (8.12 MEQ/2 ML-1 GM VIAL) IVPB ONE (09:26)
[2023-10-07] MEDS ORDERED: LISINOPRIL 10 MG TABLET PO SCH (10:00)
[2023-10-07] MEDS: ASPIRIN 81 MG CHEWABLE TABLETS PO SCH (10:39)
[2023-10-07] MEDS: LISINOPRIL 20 MG TABLET PO SCH ×2 (10:39→10:46)
[2023-10-07] MEDS: amLODIPine BESYLATE 5 MG TABLET (FP) PO SCH (10:40)
[2023-10-07] MEDS: ENOXAPARIN NA (PORCINE) 40 MG/0.4 ML DISP.SYRIN SQ SCH (10:40)
[2023-10-07] MEDS: COLLAGENASE CLOSTRIDIUM HIST. 30 GRAMS TUBE TP SCH (17:56)
[2023-10-07] MEDS: INSULIN (LEVEMIR) 100 UNITS/ML UNITS SQ SCH (22:09)
[2023-10-07] MEDS: ATORVASTATIN CA 10 MG TABLET (FP) PO SCH (22:11)
[2023-10-08] MEDS: VANCOMYCIN/WATER 1250 MG 1,250 MG/250 ML BAG IVPB SCH ×2 (04:57→14:51)
[2023-10-08] MEDS: INSULIN SLIDING SCALE (NOVOLOG) 1 VIAL SQ SCH ×5 (06:36→21:39)
[2023-10-08] MEDS: LISINOPRIL 20 MG TABLET PO SCH (09:01)
[2023-10-08] MEDS: ASPIRIN 81 MG CHEWABLE TABLETS PO SCH (09:01)
[2023-10-08] MEDS: COLLAGENASE CLOSTRIDIUM HIST. 30 GRAMS TUBE TP SCH (09:02)
[2023-10-08] MEDS: amLODIPine BESYLATE 5 MG TABLET (FP) PO SCH (09:02)
[2023-10-08] MEDS: ENOXAPARIN NA (PORCINE) 40 MG/0.4 ML DISP.SYRIN SQ SCH (09:02)
[2023-10-08] MEDS: ATORVASTATIN CA 10 MG TABLET (FP) PO SCH (21:38)
[2023-10-08] MEDS: INSULIN (LEVEMIR) 100 UNITS/ML UNITS SQ SCH (21:38)
[2023-10-09] MEDS: INSULIN SLIDING SCALE (NOVOLOG) 1 VIAL SQ SCH ×5 (06:27→23:05)
[2023-10-09] MEDS ORDERED: ALBUTEROL SO4 HFA INHALER IH PRN (09:54)
[2023-10-09] MEDS: ASPIRIN 81 MG CHEWABLE TABLETS PO SCH (11:12)
[2023-10-09] MEDS: amLODIPine BESYLATE 5 MG TABLET (FP) PO SCH (11:12)
[2023-10-09] MEDS: LISINOPRIL 20 MG TABLET PO SCH (12:11)
[2023-10-09] MEDS: COLLAGENASE CLOSTRIDIUM HIST. 30 GRAMS TUBE TP SCH (12:28)
[2023-10-09] MEDS: ENOXAPARIN NA (PORCINE) 40 MG/0.4 ML DISP.SYRIN SQ SCH (12:28)
[2023-10-09] MEDS: INSULIN (LEVEMIR) 100 UNITS/ML UNITS SQ SCH (22:59)
[2023-10-09] MEDS: ATORVASTATIN CA 10 MG TABLET (FP) PO SCH (22:59)
[2023-10-10] MEDS: INSULIN SLIDING SCALE (NOVOLOG) 1 VIAL SQ SCH ×4 (06:51→21:41)
[2023-10-10] MEDS ORDERED: amLODIPine BESYLATE 10 MG TABLET (FP) PO SCH (10:00)
[2023-10-10] MEDS: LISINOPRIL 20 MG TABLET PO SCH (10:25)
[2023-10-10] MEDS: ASPIRIN 81 MG CHEWABLE TABLETS PO SCH (10:25)
[2023-10-10] MEDS: ENOXAPARIN NA (PORCINE) 40 MG/0.4 ML DISP.SYRIN SQ SCH (10:26)
[2023-10-10] MEDS: COLLAGENASE CLOSTRIDIUM HIST. 30 GRAMS TUBE TP SCH (10:28)
[2023-10-10] MEDS ORDERED: LIDOCAINE HCL 1%, 10 MG/ML (20ML VIAL) ONE (14:18)
[2023-10-10] MEDS ORDERED: BUPIVACAINE HCL/PF 0.5% (5MG/ML) 10 ML VIAL ONE (14:18)
[2023-10-10] MEDS ORDERED: LIDOCAINE HCL 2% (20ML MULTI-DOSE VIAL) ONE (14:32)
[2023-10-10] MEDS ORDERED: MIDAZOLAM HCL 2 MG/2 ML SINGLE DOSE VIAL ONE (15:11)
[2023-10-10] MEDS ORDERED: ONDANSETRON 4 MG/2 ML VIAL ONE (15:17)
[2023-10-10] MEDS ORDERED: FENTANYL CITRATE/PF 50 MCG/ML VIAL ONE (15:17)
[2023-10-10] MEDS ORDERED: LIDOCAINE HCL 1%, 10 MG/ML (20ML VIAL) INF ONE (15:20)
[2023-10-10] MEDS ORDERED: PROPOFOL 20 ML ONE (15:21)
[2023-10-10] MEDS ORDERED: ONDANSETRON 4 MG/2 ML VIAL IVPUSH PRN ×2 (16:20→16:29)
[2023-10-10] MEDS ORDERED: MAGNESIUM SULF 50% (8.12 MEQ/2 ML-1 GM VIAL) IVPB ONE (16:29)
[2023-10-10] MEDS ORDERED: ALBUTEROL SO4 HFA INHALER IH PRN (16:29)
[2023-10-10] MEDS ORDERED: LACTATED RINGERS SOLUTION 1,000 ML IV SCH ×2 (16:30)
[2023-10-10] MEDS: VANCOMYCIN/WATER 1250 MG 1,250 MG/250 ML BAG IVPB SCH (18:54)
[2023-10-10] MEDS: ATORVASTATIN CA 10 MG TABLET (FP) PO SCH (21:41)
[2023-10-10] MEDS: INSULIN (LEVEMIR) 100 UNITS/ML UNITS SQ SCH (21:44)
[2023-10-11] MEDS: INSULIN SLIDING SCALE (NOVOLOG) 1 VIAL SQ SCH ×4 (06:17→22:21)
[2023-10-11] MEDS ORDERED: VANCOMYCIN/WATER 1250 MG 1,250 MG/250 ML BAG IVPB SCH (07:00)
[2023-10-11] MEDS: VANCOMYCIN/WATER 1250 MG 1,250 MG/250 ML BAG IVPB SCH ×2 (07:08→18:22)
[2023-10-11] MEDS: ENOXAPARIN NA (PORCINE) 40 MG/0.4 ML DISP.SYRIN SQ SCH ×2 (09:24→09:28)
[2023-10-11] MEDS: ASPIRIN 81 MG CHEWABLE TABLETS PO SCH (09:24)
[2023-10-11] MEDS: LISINOPRIL 20 MG TABLET PO SCH (09:24)
[2023-10-11] MEDS: amLODIPine BESYLATE 10 MG TABLET (FP) PO SCH (09:25)
[2023-10-11 10:42] LABS: BASO % 0.8 % (0-2.0); EOS % 2.4 % (0-4.5); HEMATOCRIT 38.7 % (35.4-49); HEMOGLOBIN 13.5 GM/dL (11.7-16.9); LYMPH % 24.1 % (8-40); MCH 28.3 pg (25.7-33.7); MCHC 34.9 g/dl (32.0-35.9); MEAN CELL VOLUME 81.1 fl (80-96); MEAN PLT VOLUME 8.1 fl (7.5-11.1); NEUT % 64.7 % (42.8-82.8); PLATELET COUNT 333 10^3/uL (134-434); RBC 4.78 M/mm3 (4.00-5.60); RDW 13.8 % (11.9-15.9); WHITE BLOOD COUNT 6.9 K/mm3 (4.0-10.0)
[2023-10-11 11:39] LABS: POTASSIUM 4.5 mmol/L (3.5-5.1)
[2023-10-11 11:42] LABS: ALBUMIN 3.2 g/dl (3.4-5.0); CALCIUM 8.8 mg/dL (8.5-10.1)
[2023-10-11 11:43] LABS: BLOOD UREA NITROGEN 21.1 mg/dL (7-18)
[2023-10-11 11:45] LABS: BILIRUBIN,DIRECT 0.1 mg/dL (0.0-0.2); CREATININE 1.2 mg/dL (0.55-1.3)
[2023-10-11 11:47] LABS: BILIRUBIN,TOTAL 0.7 mg/dL (0.2-1); TOT PROT 6.9 g/dl (6.4-8.2)
[2023-10-11 12:08] LABS: ERYTHROCYTE SEDIMENTATION RATE 27 mm/hr (0-20)
[2023-10-11] MEDS: ATORVASTATIN CA 10 MG TABLET (FP) PO SCH (22:14)
[2023-10-11] MEDS: INSULIN (LEVEMIR) 100 UNITS/ML UNITS SQ SCH (22:21)
[2023-10-12] MEDS: INSULIN SLIDING SCALE (NOVOLOG) 1 VIAL SQ SCH ×3 (06:30→16:40)
[2023-10-12] MEDS: VANCOMYCIN/WATER 1250 MG 1,250 MG/250 ML BAG IVPB SCH (06:37)
[2023-10-12 09:20] VITALS: RESP 18; TEMP 98
[2023-10-12] MEDS: LISINOPRIL 20 MG TABLET PO SCH (09:29)
[2023-10-12] MEDS: ASPIRIN 81 MG CHEWABLE TABLETS PO SCH (09:29)
[2023-10-12] MEDS: amLODIPine BESYLATE 10 MG TABLET (FP) PO SCH (09:30)
[2023-10-12] MEDS: ENOXAPARIN NA (PORCINE) 40 MG/0.4 ML DISP.SYRIN SQ SCH (09:30)
[2023-10-12 14:59] VITALS: BP 127/74; PULSE 103
== END 2023-10-12 18:06 | disposition home or self-care (01) | DRG 623 ==
LOC: JER 09:34 → JERBED 12:53 → J5S 14:36
PROVIDERS: ADMIT Internal Medicine; ATTEND Internal Medicine
PROC: 02HV33Z Insertion of Infusion Device into Superior Vena Cava, Percutaneous Approach (ICD-10-PCS; 2023-10-06)
PROC: B548ZZA Ultrasonography of Superior Vena Cava, Guidance (ICD-10-PCS; 2023-10-06)
PROC: 0QBN0ZX Excision of Right Metatarsal, Open Approach, Diagnostic (ICD-10-PCS; 2023-10-10)
PROC: 0KBV0ZZ Excision of Right Foot Muscle, Open Approach (ICD-10-PCS; principal; 2023-10-10 15:00)
DX: E11.69 Type 2 diabetes mellitus with other specified complication (principal); L03.115 Cellulitis of right lower limb; M86.271 Subacute osteomyelitis, right ankle and foot; E78.5 Hyperlipidemia, unspecified; E83.42 Hypomagnesemia; E11.610 Type 2 diabetes mellitus with diabetic neuropathic arthropathy; E11.621 Type 2 diabetes mellitus with foot ulcer; L97.509 Non-pressure chronic ulcer of other part of unspecified foot with unspecified severity; I16.0 Hypertensive urgency; A49.01 Methicillin susceptible Staphylococcus aureus infection, unspecified site; E11.65 Type 2 diabetes mellitus with hyperglycemia; E66.9 Obesity, unspecified; Z68.35 Body mass index [BMI] 35.0-35.9, adult
CPT/HCPCS: 11042; 36415; 36569; 76000-TC-FY; 77001-TC-FY; 80048; 80053; 80076; 82962; 83036; 83735; 85025; 85610; 85651; 86140; 86850; 86900; 86901; 87070; 87075; 87186; 87205; 93005; 93010; 94760; 99285-25; C1751; G0480

== ENCOUNTER 2023-10-13 14:23 | Day surgery (SDC) | payer OTHER ==
[2023-10-13] MEDS ORDERED: DALBAVANCIN HCL 1,500 MG in DEXTROSE 5%-WATER - 500 ML IVPB ONE (15:00)
[2023-10-13 16:28] VITALS: BP 127/86; PULSE 80; RESP 16; TEMP 98.2
== END 2023-10-13 16:28 | disposition home or self-care (01) ==
LOC: FM/S 14:23 → FINFUSION 14:23
PROVIDERS: ATTEND Internal Medicine Infectious Disease
DX: L08.89 Other specified local infections of the skin and subcutaneous tissue (principal); E11.69 Type 2 diabetes mellitus with other specified complication
CPT/HCPCS: 96365; J0875

== ENCOUNTER 2023-10-20 09:53 | Day surgery (SDC) | payer OTHER ==
[2023-10-20] MEDS ORDERED: DALBAVANCIN HCL 1,500 MG in DEXTROSE 5%-WATER - 500 ML IVPB ONE (10:30)
[2023-10-20 11:45] VITALS: BP 152/79; PULSE 79; RESP 18; TEMP 98.2
== END 2023-10-20 11:45 | disposition home or self-care (01) ==
LOC: FINFUSION 09:53 → FM/S 09:54 → FINFUSION 11:45
PROVIDERS: ATTEND Internal Medicine Infectious Disease
DX: E11.621 Type 2 diabetes mellitus with foot ulcer (principal); E11.628 Type 2 diabetes mellitus with other skin complications; L08.89 Other specified local infections of the skin and subcutaneous tissue
CPT/HCPCS: 96365; J0875

== ENCOUNTER 2023-11-29 07:57 | Inpatient (IN) | payer OTHER ==
[2023-11-29 08:16] VITALS: BMI 35.3
[2023-11-29 09:31] LABS: BASO % 0.6 % (0-2.0); EOS % 1.4 % (0-4.5); HEMATOCRIT 37.7 % (35.4-49); HEMOGLOBIN 12.2 GM/dL (11.7-16.9); LYMPH % 18.1 % (8-40); MCH 26.6 pg (25.7-33.7); MCHC 32.3 g/dl (32.0-35.9); MEAN CELL VOLUME 82.3 fl (80-96); MEAN PLT VOLUME 7.6 fl (7.5-11.1); MONO % 7.3 % (3.8-10.2); NEUT % 72.6 % (42.8-82.8); PLATELET COUNT 479 10^3/uL (134-434); RBC 4.59 M/mm3 (4.00-5.60); RDW 13.6 % (11.9-15.9); WHITE BLOOD COUNT 11.7 K/mm3 (4.0-10.0)
[2023-11-29 09:38] LABS: INR 1.11 (0.83-1.09); PROTHROMBIN TIME (PATIENT) 12.9 SEC (9.7-13.0)
[2023-11-29 09:49] LABS: POTASSIUM 4.8 mmol/L (3.5-5.1)
[2023-11-29 09:50] LABS: ALBUMIN 2.8 g/dl (3.4-5.0); CALCIUM 9.2 mg/dL (8.5-10.1)
[2023-11-29 09:51] LABS: BLOOD UREA NITROGEN 17.2 mg/dL (7-18)
[2023-11-29 09:55] LABS: BILIRUBIN,TOTAL 0.4 mg/dL (0.2-1); CREATININE 1.1 mg/dL (0.55-1.3)
[2023-11-29] MEDS ORDERED: VANCOMYCIN 1 GM PREMIX - 1 GM/200 ML BAG IVPB ONE (10:45)
[2023-11-29] MEDS: INSULIN (NOVOLOG) ASPART 100 UNITS/ML 10ML VIAL SQ SCH ×3 (13:34→21:14)
[2023-11-29] MEDS: VANCOMYCIN/WATER 1250 MG 1,250 MG/250 ML BAG IVPB SCH (15:55)
[2023-11-29] MEDS ORDERED: ATORVASTATIN CA 10 MG TABLET (FP) PO SCH (22:00)
[2023-11-30] MEDS: VANCOMYCIN/WATER 1250 MG 1,250 MG/250 ML BAG IVPB SCH ×2 (03:54→15:07)
[2023-11-30] MEDS: INSULIN (NOVOLOG) ASPART 100 UNITS/ML 10ML VIAL SQ SCH ×4 (06:49→21:43)
[2023-11-30] MEDS ORDERED: HEPARIN NA (PORCINE) 5,000 UNITS/ML 1ML VIAL ONE (07:12)
[2023-11-30] MEDS ORDERED: ENOXAPARIN NA (PORCINE) 40 MG/0.4 ML DISP.SYRIN SQ SCH (10:00)
[2023-11-30] MEDS ORDERED: LISINOPRIL 10 MG TABLET PO SCH (10:00)
[2023-11-30] MEDS ORDERED: ASPIRIN 81 MG CHEWABLE TABLETS PO SCH (10:00)
[2023-11-30] MEDS ORDERED: ACETAMINOPHEN INJECTION 100 ML IVPB ONE (11:49)
[2023-11-30] MEDS ORDERED: DEXMEDETOMIDINE HCL 200 MCG/2 ML IVPB ONE (11:49)
[2023-11-30] MEDS ORDERED: PROPOFOL 20 ML ONE (11:57)
[2023-11-30] MEDS ORDERED: MIDAZOLAM HCL 2 MG/2 ML SINGLE DOSE VIAL ONE (11:58)
[2023-11-30] MEDS ORDERED: CLINDAMYCIN 600MG PREMIX IVPB 1,200 MG/100 ML BAG IVPB ONE (12:05)
[2023-11-30] MEDS ORDERED: HEPARIN NA (PORCINE) 5,000 UNITS/ML 1ML VIAL SQ ONE ×2 (12:17)
[2023-11-30] MEDS ORDERED: LIDOCAINE HCL 1%, 10 MG/ML (50 mL VIAL) INF ONE ×3 (12:17)
[2023-11-30] MEDS ORDERED: CLINDAMYCIN 900 MG PREMIX BAG IVPB ONE (12:20)
[2023-11-30] MEDS ORDERED: CLINDAMYCIN PHOSPHATE 900 MG/6 ML VIAL IVPB ONE (12:51)
[2023-11-30] MEDS ORDERED: ONDANSETRON 4 MG/2 ML VIAL IVPUSH PRN ×2 (13:41→14:00)
[2023-11-30] MEDS ORDERED: oxyCODONE HCL 5 MG TABLET PO PRN ×2 (13:41→14:00)
[2023-11-30] MEDS ORDERED: LACTATED RINGERS SOLUTION 1,000 ML IV SCH (13:45)
[2023-11-30] MEDS ORDERED: CLOPIDOGREL BISULFATE 75 MG TABLET (FP) ONE (14:02)
[2023-11-30] MEDS: CLOPIDOGREL BISULFATE 75 MG TABLET (FP) PO SCH ×2 (14:03→14:05)
[2023-11-30] MEDS ORDERED: CEFTRIAXONE 2 GM-D5W BAG 2 GM/50 ML BAG IVPB SCH (14:30)
[2023-11-30] MEDS: LACTATED RINGERS SOLUTION 1,000 ML IV SCH (14:59)
[2023-11-30] MEDS ORDERED: VANCOMYCIN/WATER 1250 MG 1,250 MG/250 ML BAG IVPB SCH (15:00)
[2023-11-30] MEDS ORDERED: INSULIN ASPART SLIDING SCALE (NOVOLOG) 1 VIAL SQ ONE ×2 (16:27→21:15)
[2023-11-30] MEDS: ATORVASTATIN CA 40 MG TABLET (FP) PO SCH (21:41)
[2023-11-30] MEDS: INSULIN (LEVEMIR) 100 UNITS/ML UNITS SQ SCH (21:59)
[2023-11-30] MEDS ORDERED: ATORVASTATIN CA 10 MG TABLET (FP) PO SCH (22:00)
[2023-12-01] MEDS: VANCOMYCIN/WATER 1250 MG 1,250 MG/250 ML BAG IVPB SCH ×2 (02:13→14:44)
[2023-12-01] MEDS: INSULIN (NOVOLOG) ASPART 100 UNITS/ML 10ML VIAL SQ SCH ×4 (06:13→21:29)
[2023-12-01] MEDS: INSULIN (LEVEMIR) 100 UNITS/ML UNITS SQ SCH ×3 (06:18→21:30)
[2023-12-01] MEDS: GLIMEPIRIDE 4 MG TABLET PO SCH (08:07)
[2023-12-01] MEDS: CLOPIDOGREL BISULFATE 75 MG TABLET (FP) PO SCH (10:11)
[2023-12-01] MEDS: LISINOPRIL 10 MG TABLET PO SCH (10:11)
[2023-12-01] MEDS: ASPIRIN 81 MG CHEWABLE TABLETS PO SCH (10:11)
[2023-12-01] MEDS: ENOXAPARIN NA (PORCINE) 40 MG/0.4 ML DISP.SYRIN SQ SCH (10:12)
[2023-12-01 10:15] LABS: BASO % 0.9 % (0-2.0); EOS % 2.1 % (0-4.5); HEMOGLOBIN 12.2 GM/dL (11.7-16.9); LYMPH % 15.4 % (8-40); MCH 26.8 pg (25.7-33.7); MCHC 33.1 g/dl (32.0-35.9); MEAN CELL VOLUME 81.1 fl (80-96); MEAN PLT VOLUME 7.7 fl (7.5-11.1); MONO % 7.7 % (3.8-10.2); NEUT % 73.9 % (42.8-82.8); PLATELET COUNT 473 10^3/uL (134-434); RBC 4.57 M/mm3 (4.00-5.60); RDW 13.4 % (11.9-15.9); WHITE BLOOD COUNT 8.7 K/mm3 (4.0-10.0)
[2023-12-01 10:51] LABS: POTASSIUM 4.5 mmol/L (3.5-5.1)
[2023-12-01 11:18] LABS: ALBUMIN 2.7 g/dl (3.4-5.0); BLOOD UREA NITROGEN 16.9 mg/dL (7-18); CALCIUM 8.7 mg/dL (8.5-10.1)
[2023-12-01 11:22] LABS: TOT PROT 6.8 g/dl (6.4-8.2)
[2023-12-01 11:24] LABS: BILIRUBIN,TOTAL 0.5 mg/dL (0.2-1)
[2023-12-01] MEDS ORDERED: INSULIN ASPART SLIDING SCALE (NOVOLOG) 1 VIAL SQ ONE (16:27)
[2023-12-01] MEDS: LACTATED RINGERS SOLUTION 1,000 ML IV SCH (16:28)
[2023-12-01] MEDS ORDERED: SODIUM CHLORIDE 500 ML IV STA (16:36)
[2023-12-01] MEDS: ATORVASTATIN CA 40 MG TABLET (FP) PO SCH (21:27)
[2023-12-02] MEDS: VANCOMYCIN/WATER 1250 MG 1,250 MG/250 ML BAG IVPB SCH ×2 (03:24→14:55)
[2023-12-02] MEDS: GLIMEPIRIDE 4 MG TABLET PO SCH (06:27)
[2023-12-02] MEDS: INSULIN (NOVOLOG) ASPART 100 UNITS/ML 10ML VIAL SQ SCH ×4 (06:27→21:42)
[2023-12-02] MEDS: INSULIN (LEVEMIR) 100 UNITS/ML UNITS SQ SCH ×2 (06:28→22:56)
[2023-12-02] MEDS: LISINOPRIL 10 MG TABLET PO SCH (09:52)
[2023-12-02] MEDS: CLOPIDOGREL BISULFATE 75 MG TABLET (FP) PO SCH (09:52)
[2023-12-02] MEDS: ENOXAPARIN NA (PORCINE) 40 MG/0.4 ML DISP.SYRIN SQ SCH ×2 (09:53→10:48)
[2023-12-02] MEDS: ASPIRIN 81 MG CHEWABLE TABLETS PO SCH (09:53)
[2023-12-02] MEDS ORDERED: INSULIN ASPART SLIDING SCALE (NOVOLOG) 1 VIAL SQ ONE ×2 (11:46→21:40)
[2023-12-02] MEDS: ATORVASTATIN CA 40 MG TABLET (FP) PO SCH (21:42)
[2023-12-02] MEDS ORDERED: INSULIN (LEVEMIR) 100 UNITS/ML UNITS SQ ONE (21:54)
[2023-12-03] MEDS: VANCOMYCIN/WATER 1250 MG 1,250 MG/250 ML BAG IVPB SCH ×4 (04:34→14:56)
[2023-12-03] MEDS: INSULIN (NOVOLOG) ASPART 100 UNITS/ML 10ML VIAL SQ SCH ×4 (06:17→22:29)
[2023-12-03] MEDS: GLIMEPIRIDE 4 MG TABLET PO SCH (06:18)
[2023-12-03] MEDS: INSULIN (LEVEMIR) 100 UNITS/ML UNITS SQ SCH ×3 (06:18→22:28)
[2023-12-03] MEDS: ENOXAPARIN NA (PORCINE) 40 MG/0.4 ML DISP.SYRIN SQ SCH (09:52)
[2023-12-03] MEDS: LISINOPRIL 10 MG TABLET PO SCH (09:53)
[2023-12-03] MEDS: CLOPIDOGREL BISULFATE 75 MG TABLET (FP) PO SCH (09:53)
[2023-12-03] MEDS: ASPIRIN 81 MG CHEWABLE TABLETS PO SCH (09:53)
[2023-12-03] MEDS ORDERED: INSULIN ASPART SLIDING SCALE (NOVOLOG) 1 VIAL SQ ONE (16:46)
[2023-12-03] MEDS: ATORVASTATIN CA 40 MG TABLET (FP) PO SCH (22:28)
[2023-12-04] MEDS: GLIMEPIRIDE 4 MG TABLET PO SCH (06:28)
[2023-12-04] MEDS: INSULIN (LEVEMIR) 100 UNITS/ML UNITS SQ SCH ×2 (06:29→22:01)
[2023-12-04] MEDS: INSULIN (NOVOLOG) ASPART 100 UNITS/ML 10ML VIAL SQ SCH ×4 (06:29→22:02)
[2023-12-04 08:35] LABS: HEMATOCRIT 37.2 % (35.4-49); HEMOGLOBIN 12.5 GM/dL (11.7-16.9); MCH 27.6 pg (25.7-33.7); MCHC 33.7 g/dl (32.0-35.9); MEAN PLT VOLUME 7.5 fl (7.5-11.1); PLATELET COUNT 465 10^3/uL (134-434); RBC 4.54 M/mm3 (4.00-5.60); RDW 13.6 % (11.9-15.9); WHITE BLOOD COUNT 8.5 K/mm3 (4.0-10.0)
[2023-12-04 09:04] LABS: POTASSIUM 4.9 mmol/L (3.5-5.1)
[2023-12-04 09:06] LABS: BLOOD UREA NITROGEN 17.5 mg/dL (7-18)
[2023-12-04] MEDS: CLOPIDOGREL BISULFATE 75 MG TABLET (FP) PO SCH (10:42)
[2023-12-04] MEDS: ASPIRIN 81 MG CHEWABLE TABLETS PO SCH (10:42)
[2023-12-04] MEDS: LISINOPRIL 10 MG TABLET PO SCH (10:42)
[2023-12-04] MEDS: ENOXAPARIN NA (PORCINE) 40 MG/0.4 ML DISP.SYRIN SQ SCH (10:44)
[2023-12-04] MEDS ORDERED: INSULIN ASPART SLIDING SCALE (NOVOLOG) 1 VIAL SQ ONE ×2 (11:47→21:06)
[2023-12-04] MEDS: DAPTOMYCIN 1,000 MG in SODIUM CHLORIDE 50 ML IVPB SCH (16:32)
[2023-12-05 04:35] VITALS: RESP 18
[2023-12-05] MEDS: INSULIN (LEVEMIR) 100 UNITS/ML UNITS SQ SCH (06:20)
[2023-12-05] MEDS: INSULIN (NOVOLOG) ASPART 100 UNITS/ML 10ML VIAL SQ SCH ×2 (06:21→11:25)
[2023-12-05] MEDS: GLIMEPIRIDE 4 MG TABLET PO SCH (08:46)
[2023-12-05] MEDS: ASPIRIN 81 MG CHEWABLE TABLETS PO SCH (09:06)
[2023-12-05] MEDS: CLOPIDOGREL BISULFATE 75 MG TABLET (FP) PO SCH (09:06)
[2023-12-05] MEDS: LISINOPRIL 10 MG TABLET PO SCH (09:06)
[2023-12-05] MEDS: ENOXAPARIN NA (PORCINE) 40 MG/0.4 ML DISP.SYRIN SQ SCH (09:08)
[2023-12-05 10:50] VITALS: BP 147/70; PULSE 90; TEMP 98.4
[2023-12-05] MEDS: DAPTOMYCIN 1,000 MG in SODIUM CHLORIDE 50 ML IVPB SCH (13:00)
== END 2023-12-05 14:10 | disposition home or self-care (01) | DRG 271 ==
LOC: JER 07:57 → JERBED 10:40 → J6S 13:02
PROVIDERS: ADMIT Internal Medicine; ATTEND Internal Medicine
PROC: 047S3ZZ Dilation of Left Posterior Tibial Artery, Percutaneous Approach (ICD-10-PCS; 2023-11-30)
PROC: 02HV33Z Insertion of Infusion Device into Superior Vena Cava, Percutaneous Approach (ICD-10-PCS; 2023-11-30)
PROC: B518ZZA Fluoroscopy of Superior Vena Cava, Guidance (ICD-10-PCS; 2023-11-30)
PROC: B41DZZZ Fluoroscopy of Aorta and Bilateral Lower Extremity Arteries (ICD-10-PCS; 2023-11-30)
PROC: 04CS3ZZ Extirpation of Matter from Left Posterior Tibial Artery, Percutaneous Approach (ICD-10-PCS; principal; 2023-11-30 08:00)
DX: E11.51 Type 2 diabetes mellitus with diabetic peripheral angiopathy without gangrene (principal); L03.115 Cellulitis of right lower limb; M86.8X7 Other osteomyelitis, ankle and foot; L97.518 Non-pressure chronic ulcer of other part of right foot with other specified severity; E78.5 Hyperlipidemia, unspecified; E11.610 Type 2 diabetes mellitus with diabetic neuropathic arthropathy; E11.69 Type 2 diabetes mellitus with other specified complication; A49.01 Methicillin susceptible Staphylococcus aureus infection, unspecified site; I10 Essential (primary) hypertension; E11.621 Type 2 diabetes mellitus with foot ulcer; I77.1 Stricture of artery; Z89.421 Acquired absence of other right toe(s)
CPT/HCPCS: 0241U-QW; 36415; 36569; 76000-TC-FY; 77001-TC-FY; 80048; 80053; 80061; 82550; 82962; 85025; 85027; 85610; 85730; 86140; 86850; 86900; 86901; 87040; 87070; 87186; 87205; 94760; 99285-25; C1724; C1751; C1769; G0480; J0878; J1644

== ENCOUNTER 2023-12-06 10:01 | Day surgery (SDC) | payer OTHER ==
[2023-12-06] MEDS ORDERED: DAPTOMYCIN 1,000 MG in SODIUM CHLORIDE 50 ML IVPB ONE (11:30)
[2023-12-06 13:14] VITALS: BP 145/78; PULSE 98; RESP 18; TEMP 98
== END 2023-12-06 13:14 | disposition home or self-care (01) ==
LOC: FINFUSION 10:01 → FM/S 11:02 → FINFUSION 13:14
PROVIDERS: ATTEND Internal Medicine Infectious Disease
DX: M86.8X7 Other osteomyelitis, ankle and foot (principal); L03.115 Cellulitis of right lower limb
CPT/HCPCS: 96365; J0878

== ENCOUNTER 2023-12-07 10:59 | Day surgery (SDC) | payer OTHER ==
[2023-12-07] MEDS ORDERED: DAPTOMYCIN 1,000 MG in SODIUM CHLORIDE 50 ML IVPB ONE (11:30)
[2023-12-07 14:29] VITALS: BP 145/72; PULSE 76; RESP 18; TEMP 98
== END 2023-12-07 12:11 | disposition home or self-care (01) ==
LOC: FINFUSION 10:59 → FM/S 11:00 → FINFUSION 12:11
PROVIDERS: ATTEND Internal Medicine Infectious Disease
DX: M86.8X7 Other osteomyelitis, ankle and foot (principal); L03.115 Cellulitis of right lower limb
CPT/HCPCS: 96365; J0878

== ENCOUNTER 2023-12-08 10:35 | Day surgery (SDC) | payer OTHER ==
[2023-12-08] MEDS ORDERED: DAPTOMYCIN 1,000 MG in SODIUM CHLORIDE 50 ML IVPB ONE (11:30)
[2023-12-08 11:38] VITALS: BP 125/60; RESP 18; TEMP 98.3
[2023-12-08 12:14] VITALS: PULSE 89
== END 2023-12-08 12:34 | disposition home or self-care (01) ==
LOC: FINFUSION 10:35 → FM/S 10:36 → FINFUSION 12:34
PROVIDERS: ATTEND Internal Medicine Infectious Disease
DX: M86.8X7 Other osteomyelitis, ankle and foot (principal); L03.115 Cellulitis of right lower limb
CPT/HCPCS: 96365; 96366; 96367; J0878

== ENCOUNTER 2023-12-09 10:24 | Day surgery (SDC) | payer OTHER ==
[2023-12-09] MEDS ORDERED: DAPTOMYCIN 1,000 MG in SODIUM CHLORIDE 100 ML IVPB SCH ×2 (11:00→11:15)
[2023-12-09 11:23] VITALS: TEMP 98.3
[2023-12-09 12:27] VITALS: BP 138/76; PULSE 90; RESP 18
== END 2023-12-09 12:27 | disposition home or self-care (01) ==
LOC: FINFUSION 10:24 → FM/S 10:53 → FINFUSION 12:27
PROVIDERS: ATTEND Internal Medicine Infectious Disease
DX: M86.8X7 Other osteomyelitis, ankle and foot (principal); L03.115 Cellulitis of right lower limb
CPT/HCPCS: 96365; J0878

== ENCOUNTER 2023-12-10 11:01 | Day surgery (SDC) | payer OTHER ==
[2023-12-10] MEDS ORDERED: REFRIGERATED ANITBIOTICS ONE (11:30)
[2023-12-10 12:42] VITALS: BP 141/78; PULSE 89; RESP 15; TEMP 98.4
[2023-12-10] MEDS ORDERED: DAPTOMYCIN 1,000 MG in SODIUM CHLORIDE 100 ML IVPB ONE (13:00)
== END 2023-12-10 12:42 | disposition home or self-care (01) ==
LOC: FINFUSION 11:01 → FM/S 11:01 → FINFUSION 12:42
PROVIDERS: ATTEND Internal Medicine Infectious Disease
DX: M86.8X7 Other osteomyelitis, ankle and foot (principal); L03.115 Cellulitis of right lower limb
CPT/HCPCS: 96365; J0878

== ENCOUNTER 2023-12-11 10:27 | Day surgery (SDC) | payer OTHER ==
[2023-12-11] MEDS ORDERED: DAPTOMYCIN 1,000 MG in SODIUM CHLORIDE 50 ML IVPB ONE (11:00)
[2023-12-11 11:21] VITALS: BP 156/72; PULSE 91; RESP 18; TEMP 97.5
[2023-12-11 11:43] LABS: HEMATOCRIT 36.4 % (35.4-49); HEMOGLOBIN 12.2 G/dL (11.7-16.9); MCH 27.9 pg (25.7-33.7); MCHC 33.6 g/dl (32.0-35.9); MEAN PLT VOLUME 8.2 fl (7.5-11.1); PLATELET COUNT 417.9 10^3/uL (134-434); RBC 4.39 10^6/uL (4.00-5.60); RDW 15.4 % (11.9-15.9); WHITE BLOOD COUNT 10.6 10^3/uL (4.0-10.8)
[2023-12-11 12:28] LABS: CALCIUM 9.4 mg/dl (8.5-10.1); POTASSIUM 4.5 mmol/L (3.5-5.1)
[2023-12-11 12:38] LABS: ERYTHROCYTE SEDIMENTATION RATE 80 mm/hr (0-20)
== END 2023-12-11 11:48 | disposition home or self-care (01) ==
LOC: FM/S 10:27 → FINFUSION 10:27
PROVIDERS: ATTEND Internal Medicine Infectious Disease
DX: M86.8X7 Other osteomyelitis, ankle and foot (principal); L03.115 Cellulitis of right lower limb
CPT/HCPCS: 36415; 80048; 85027; 85651; 86140; 96365; J0878

== ENCOUNTER 2023-12-12 10:36 | Day surgery (SDC) | payer OTHER ==
[2023-12-12] MEDS: DAPTOMYCIN 1,000 MG in SODIUM CHLORIDE 50 ML IVPB ONE (10:58)
[2023-12-12 12:02] VITALS: BP 152/81; PULSE 79; RESP 18; TEMP 97.9
== END 2023-12-12 12:03 | disposition home or self-care (01) ==
LOC: FINFUSION 10:36 → FM/S 10:41 → FINFUSION 12:03
PROVIDERS: ATTEND Internal Medicine Infectious Disease
DX: M86.8X7 Other osteomyelitis, ankle and foot (principal)
CPT/HCPCS: 96365; J0878

== ENCOUNTER 2023-12-13 10:33 | Day surgery (SDC) | payer OTHER ==
[2023-12-13] MEDS: DAPTOMYCIN 1,000 MG in SODIUM CHLORIDE 50 ML IVPB ONE (11:16)
[2023-12-13 12:10] VITALS: BP 140/78; PULSE 89; RESP 18; TEMP 98.3
== END 2023-12-13 12:12 | disposition home or self-care (01) ==
LOC: FINFUSION 10:33 → FM/S 10:51 → FINFUSION 12:12
PROVIDERS: ATTEND Internal Medicine Infectious Disease
DX: M86.8X7 Other osteomyelitis, ankle and foot (principal)
CPT/HCPCS: 96365; G0463-25; J0878

== ENCOUNTER 2023-12-14 11:08 | Day surgery (SDC) | payer OTHER ==
[2023-12-14] MEDS ORDERED: DAPTOMYCIN 1,000 MG in SODIUM CHLORIDE 50 ML IVPB ONE (11:30)
[2023-12-14 12:30] VITALS: BP 154/70; PULSE 98; RESP 18; TEMP 98.5
== END 2023-12-14 12:34 | disposition home or self-care (01) ==
LOC: FINFUSION 11:08 → FM/S 11:09 → FINFUSION 12:34
PROVIDERS: ATTEND Internal Medicine Infectious Disease
DX: M86.8X7 Other osteomyelitis, ankle and foot (principal)
CPT/HCPCS: 96365; J0878

== ENCOUNTER 2023-12-15 10:55 | Day surgery (SDC) | payer OTHER ==
[2023-12-15] MEDS ORDERED: DAPTOMYCIN 1,000 MG in SODIUM CHLORIDE 50 ML IVPB ONE (11:30)
[2023-12-15 12:46] VITALS: BP 126/54; PULSE 79; RESP 18; TEMP 97.8
== END 2023-12-15 12:05 | disposition home or self-care (01) ==
LOC: FINFUSION 10:55 → FM/S 10:56 → FINFUSION 12:05
PROVIDERS: ATTEND Internal Medicine Infectious Disease
DX: M86.8X7 Other osteomyelitis, ankle and foot (principal)
CPT/HCPCS: 96365; J0878

== ENCOUNTER 2023-12-16 10:29 | Day surgery (SDC) | payer OTHER ==
[2023-12-16] MEDS ORDERED: DAPTOMYCIN 1,000 MG in SODIUM CHLORIDE 100 ML IVPB SCH (11:00)
[2023-12-16 11:45] VITALS: BP 152/92; PULSE 98; RESP 16; TEMP 97.8
== END 2023-12-16 11:47 | disposition home or self-care (01) ==
LOC: FINFUSION 10:29 → FM/S 10:32 → FINFUSION 11:47
PROVIDERS: ATTEND Internal Medicine Infectious Disease
DX: M86.8X7 Other osteomyelitis, ankle and foot (principal)
CPT/HCPCS: 96365; J0878

== ENCOUNTER 2023-12-18 10:00 | Day surgery (SDC) | payer OTHER ==
[2023-12-18 11:27] VITALS: BP 165/71; PULSE 109; RESP 16; TEMP 97.8
[2023-12-18] MEDS: DAPTOMYCIN 1,000 MG in SODIUM CHLORIDE 50 ML IVPB ONE (11:31)
[2023-12-18 11:46] LABS: HEMATOCRIT 38.2 % (35.4-49); HEMOGLOBIN 12.5 G/dL (11.7-16.9); MCH 26.9 pg (25.7-33.7); MCHC 32.6 g/dl (32.0-35.9); MEAN CELL VOLUME 82.5 fl (80-96); MEAN PLT VOLUME 7.9 fl (7.5-11.1); PLATELET COUNT 464.5 10^3/uL (134-434); RBC 4.63 10^6/uL (4.00-5.60); RDW 14.8 % (11.9-15.9); WHITE BLOOD COUNT 11.3 10^3/uL (4.0-10.8)
[2023-12-18 12:22] LABS: CALCIUM 9.4 mg/dl (8.5-10.1); CREATININE 0.9 mg/dl (0.6-1.3); POTASSIUM 4.9 mmol/L (3.5-5.1)
[2023-12-18 13:00] LABS: ERYTHROCYTE SEDIMENTATION RATE 64 mm/hr (0-20)
== END 2023-12-18 12:30 | disposition home or self-care (01) ==
LOC: FINFUSION 10:00 → FM/S 10:02 → FINFUSION 12:30
PROVIDERS: ATTEND Internal Medicine Infectious Disease
DX: M86.8X7 Other osteomyelitis, ankle and foot (principal)
CPT/HCPCS: 36415; 80048; 82550; 82553; 85027; 85651; 86140; 96365; J0878

== ENCOUNTER 2023-12-19 09:51 | Day surgery (SDC) | payer OTHER ==
[2023-12-19] MEDS: DAPTOMYCIN 1,000 MG in SODIUM CHLORIDE 50 ML IVPB ONE (11:09)
[2023-12-19 12:03] VITALS: BP 150/60; PULSE 98; RESP 98; TEMP 98.6
== END 2023-12-19 12:04 | disposition home or self-care (01) ==
LOC: FINFUSION 09:51 → FM/S 10:33 → FINFUSION 12:04
PROVIDERS: ATTEND Internal Medicine Infectious Disease
DX: M86.8X7 Other osteomyelitis, ankle and foot (principal)
CPT/HCPCS: 96365; J0878

== ENCOUNTER 2023-12-20 10:31 | Day surgery (SDC) | payer OTHER ==
[2023-12-20] MEDS: DAPTOMYCIN 1,000 MG in SODIUM CHLORIDE 50 ML IVPB ONE (11:29)
[2023-12-20 11:36] VITALS: BP 154/72; TEMP 98.4
[2023-12-20 12:22] VITALS: PULSE 112; RESP 18
== END 2023-12-20 12:24 | disposition home or self-care (01) ==
LOC: FINFUSION 10:31 → FM/S 10:56 → FINFUSION 12:24
PROVIDERS: ATTEND Internal Medicine Infectious Disease
DX: M86.8X7 Other osteomyelitis, ankle and foot (principal); E11.9 Type 2 diabetes mellitus without complications; Z79.84 Long term (current) use of oral hypoglycemic drugs
CPT/HCPCS: 96365; J0878

== ENCOUNTER 2023-12-21 10:29 | Day surgery (SDC) | payer OTHER ==
[2023-12-21] MEDS: DAPTOMYCIN 1,000 MG in SODIUM CHLORIDE 50 ML IVPB ONE (11:19)
[2023-12-21 12:10] VITALS: BP 139/74; PULSE 98; RESP 18; TEMP 98
== END 2023-12-21 12:10 | disposition home or self-care (01) ==
LOC: FINFUSION 10:29 → FM/S 11:02 → FINFUSION 12:10
PROVIDERS: ATTEND Internal Medicine Infectious Disease
DX: M86.8X7 Other osteomyelitis, ankle and foot (principal); E11.9 Type 2 diabetes mellitus without complications; Z79.84 Long term (current) use of oral hypoglycemic drugs
CPT/HCPCS: 96365; J0878

== ENCOUNTER 2023-12-22 10:59 | Day surgery (SDC) | payer OTHER ==
[2023-12-22] MEDS: DAPTOMYCIN 1,000 MG in SODIUM CHLORIDE 50 ML IVPB ONE (11:30)
[2023-12-22 12:18] VITALS: BP 148/87; PULSE 99; RESP 20; TEMP 97.8
== END 2023-12-22 12:19 | disposition home or self-care (01) ==
LOC: FINFUSION 10:59 → FM/S 11:01 → FINFUSION 12:19
PROVIDERS: ATTEND Internal Medicine Infectious Disease
DX: M86.8X7 Other osteomyelitis, ankle and foot (principal)
CPT/HCPCS: 96365; J0878

== ENCOUNTER 2023-12-23 10:49 | Day surgery (SDC) | payer OTHER ==
[2023-12-23] MEDS: DAPTOMYCIN 1,000 MG in SODIUM CHLORIDE 100 ML IVPB SCH (11:24)
[2023-12-23 13:22] VITALS: BP 140/80; PULSE 79; RESP 16; TEMP 98
== END 2023-12-23 12:23 | disposition home or self-care (01) ==
LOC: FINFUSION 10:49 → FM/S 10:50 → FINFUSION 12:23
PROVIDERS: ATTEND Internal Medicine Infectious Disease
DX: M86.8X7 Other osteomyelitis, ankle and foot (principal)
CPT/HCPCS: 96365; J0878

== ENCOUNTER 2023-12-24 11:09 | Day surgery (SDC) | payer OTHER ==
[2023-12-24] MEDS ORDERED: REFRIGERATED ANITBIOTICS ONE (11:14)
[2023-12-24] MEDS: DAPTOMYCIN 1,000 MG in SODIUM CHLORIDE 100 ML IVPB ONE (11:41)
[2023-12-24 13:12] VITALS: BP 126/67; PULSE 78; RESP 18; TEMP 97.9
== END 2023-12-24 13:13 | disposition home or self-care (01) ==
LOC: FINFUSION 11:09 → FM/S 11:11 → FINFUSION 13:13
PROVIDERS: ATTEND Internal Medicine Infectious Disease
DX: M86.8X7 Other osteomyelitis, ankle and foot (principal)
CPT/HCPCS: 96365; J0878

== ENCOUNTER 2023-12-25 10:01 | Day surgery (SDC) | payer OTHER ==
[2023-12-25] MEDS: DAPTOMYCIN 1,000 MG in SODIUM CHLORIDE 50 ML IVPB ONE (11:07)
[2023-12-25 12:14] VITALS: BP 150/80; PULSE 89; RESP 16; TEMP 98.3
[2023-12-25 12:39] LABS: HEMATOCRIT 36.8 % (35.4-49); HEMOGLOBIN 12.1 G/dL (11.7-16.9); MCH 27.2 pg (25.7-33.7); MEAN CELL VOLUME 82.6 fl (80-96); MEAN PLT VOLUME 7.9 fl (7.5-11.1); PLATELET COUNT 470.4 10^3/uL (134-434); RBC 4.46 10^6/uL (4.00-5.60); RDW 14.9 % (11.9-15.9); WHITE BLOOD COUNT 12.1 10^3/uL (4.0-10.8)
[2023-12-25 13:11] LABS: CALCIUM 8.9 mg/dl (8.5-10.1); POTASSIUM 4.8 mmol/L (3.5-5.1)
[2023-12-25 13:31] LABS: ERYTHROCYTE SEDIMENTATION RATE 85 mm/hr (0-20)
== END 2023-12-25 12:15 | disposition home or self-care (01) ==
LOC: FINFUSION 10:01 → FM/S 10:50 → FINFUSION 12:15
PROVIDERS: ATTEND Internal Medicine Infectious Disease
DX: M86.8X7 Other osteomyelitis, ankle and foot (principal)
CPT/HCPCS: 36415; 80048; 85027; 85651; 86140; 96365; J0878

== ENCOUNTER 2023-12-27 10:38 | Day surgery (SDC) | payer OTHER ==
[2023-12-27] MEDS: DAPTOMYCIN 1,000 MG in SODIUM CHLORIDE 50 ML IVPB ONE (11:21)
[2023-12-27 12:16] VITALS: BP 129/85; PULSE 78; RESP 18; TEMP 98.9
== END 2023-12-27 12:16 | disposition home or self-care (01) ==
LOC: FINFUSION 10:38 → FM/S 10:38 → FINFUSION 12:16
PROVIDERS: ATTEND Internal Medicine Infectious Disease
DX: M86.8X7 Other osteomyelitis, ankle and foot (principal)
CPT/HCPCS: 96365; J0878

== ENCOUNTER 2023-12-28 09:59 | Day surgery (SDC) | payer OTHER ==
[2023-12-28] MEDS: DAPTOMYCIN 1,000 MG in SODIUM CHLORIDE 50 ML IVPB ONE (11:18)
[2023-12-28 11:32] VITALS: RESP 18; TEMP 98.7
[2023-12-28 12:26] VITALS: BP 147/72; PULSE 89
== END 2023-12-28 12:31 | disposition home or self-care (01) ==
LOC: FINFUSION 09:59 → FM/S 09:59 → FINFUSION 12:31
PROVIDERS: ATTEND Internal Medicine Infectious Disease
DX: M86.8X7 Other osteomyelitis, ankle and foot (principal)
CPT/HCPCS: 96365; J0878

== ENCOUNTER 2023-12-29 09:29 | Day surgery (SDC) | payer OTHER ==
[2023-12-29 11:18] VITALS: RESP 18; TEMP 98.1
[2023-12-29] MEDS: DAPTOMYCIN 1,000 MG in SODIUM CHLORIDE 50 ML IVPB ONE (11:22)
[2023-12-29 12:14] VITALS: BP 127/64; PULSE 76
== END 2023-12-29 12:16 | disposition home or self-care (01) ==
LOC: FINFUSION 09:29 → FM/S 10:33 → FINFUSION 12:16
PROVIDERS: ATTEND Internal Medicine Infectious Disease
DX: M86.8X7 Other osteomyelitis, ankle and foot (principal)
CPT/HCPCS: 96365; J0878

== ENCOUNTER 2023-12-30 09:28 | Day surgery (SDC) | payer OTHER ==
[2023-12-30 10:17] LABS: HEMATOCRIT 37.1 % (35.4-49); HEMOGLOBIN 12.2 G/dL (11.7-16.9); MCH 27.4 pg (25.7-33.7); MEAN CELL VOLUME 83.1 fl (80-96); MEAN PLT VOLUME 7.6 fl (7.5-11.1); RBC 4.46 10^6/uL (4.00-5.60); RDW 14.7 % (11.9-15.9); WHITE BLOOD COUNT 12.6 10^3/uL (4.0-10.8)
[2023-12-30 10:23] LABS: CALCIUM 9.7 mg/dl (8.5-10.1); POTASSIUM 4.5 mmol/L (3.5-5.1)
[2023-12-30 10:52] LABS: PLATELET ESTIMATE SLT INCREASE
[2023-12-30] MEDS: DAPTOMYCIN 1,000 MG in SODIUM CHLORIDE 100 ML IVPB SCH (13:24)
[2023-12-30 14:05] VITALS: BP 136/70; PULSE 105; RESP 16; TEMP 99.1
== END 2023-12-30 14:06 | disposition home or self-care (01) ==
LOC: FINFUSION 09:28 → FM/S 09:29 → FINFUSION 14:06
PROVIDERS: ATTEND Internal Medicine Infectious Disease
DX: M86.8X7 Other osteomyelitis, ankle and foot (principal)
CPT/HCPCS: 36415; 80048; 82550; 82553; 85027; 85651; 96365; J0878

== ENCOUNTER 2023-12-31 11:08 | Day surgery (SDC) | payer OTHER ==
[2023-12-31] MEDS: DAPTOMYCIN 1,000 MG in SODIUM CHLORIDE 100 ML IVPB ONE (11:39)
[2023-12-31 12:56] VITALS: BP 120/74; PULSE 69; RESP 14; TEMP 97.9
== END 2023-12-31 12:57 | disposition home or self-care (01) ==
LOC: FINFUSION 11:08 → FM/S 11:10 → FINFUSION 12:57
PROVIDERS: ATTEND Internal Medicine Infectious Disease
DX: M86.8X7 Other osteomyelitis, ankle and foot (principal)
CPT/HCPCS: 96365; J0878

== ENCOUNTER 2024-01-01 10:19 | Day surgery (SDC) | payer OTHER ==
[2024-01-01] MEDS: DAPTOMYCIN 1,000 MG in SODIUM CHLORIDE 50 ML IVPB ONE (10:40)
[2024-01-01 10:52] VITALS: BP 129/68; PULSE 108; TEMP 98.6
[2024-01-01 11:43] VITALS: RESP 18
== END 2024-01-01 11:44 | disposition home or self-care (01) ==
LOC: FINFUSION 10:19 → FM/S 10:20 → FINFUSION 11:44
PROVIDERS: ATTEND Internal Medicine Infectious Disease
DX: M86.8X7 Other osteomyelitis, ankle and foot (principal)
CPT/HCPCS: 96365; J0878

== ENCOUNTER 2024-01-02 10:31 | Day surgery (SDC) | payer OTHER ==
[2024-01-02] MEDS: DAPTOMYCIN 1,000 MG in SODIUM CHLORIDE 50 ML IVPB ONE (11:16)
[2024-01-02 12:05] VITALS: BP 150/89; PULSE 100; RESP 19; TEMP 98.3
== END 2024-01-02 12:08 | disposition home or self-care (01) ==
LOC: FM/S 10:31 → FINFUSION 10:31
PROVIDERS: ATTEND Internal Medicine Infectious Disease
DX: M86.8X7 Other osteomyelitis, ankle and foot (principal)
CPT/HCPCS: 96365; 96367; J0878

== ENCOUNTER 2024-01-03 10:58 | Day surgery (SDC) | payer OTHER ==
[2024-01-03] MEDS: DAPTOMYCIN 1,000 MG in SODIUM CHLORIDE 50 ML IVPB ONE (11:26)
[2024-01-03 13:12] VITALS: BP 132/67; PULSE 78; RESP 19; TEMP 98.1
== END 2024-01-03 13:26 | disposition home or self-care (01) ==
LOC: FINFUSION 10:58 → FM/S 10:58 → FINFUSION 13:26
PROVIDERS: ATTEND Internal Medicine Infectious Disease
DX: M86.8X7 Other osteomyelitis, ankle and foot (principal)
CPT/HCPCS: 96365; J0878

== ENCOUNTER 2024-02-06 18:03 | Emergency (ER) | payer OTHER ==
[2024-02-06 19:03] VITALS: RESP 18; BMI 35.3
[2024-02-06] MEDS ORDERED: FAMOTIDINE 20 MG/50 ML IVPB 20 MG/50 ML MG IVPB ONE (19:05)
[2024-02-06] MEDS ORDERED: ONDANSETRON 4 MG/2 ML VIAL ONE (19:05)
[2024-02-06 19:22] LABS: VENOUS BASE EXCESS 0.9 mmol/L (-2-2); VENOUS O2 SATURATION 75.4 % (70-80); VENOUS PCO2 37.3 mmHg (38-52); VENOUS PH 7.442 (7.310-7.410)
[2024-02-06 19:23] LABS: BASO % 0.6 % (0-2.0); HEMATOCRIT 33.1 % (35.4-49); HEMOGLOBIN 10.8 GM/dL (11.7-16.9); LYMPH % 5.3 % (8-40); MCH 25.4 pg (25.7-33.7); MCHC 32.7 g/dl (32.0-35.9); MEAN CELL VOLUME 77.7 fl (80-96); MEAN PLT VOLUME 6.8 fl (7.5-11.1); MONO % 4.3 % (3.8-10.2); NEUT % 89.8 % (42.8-82.8); PLATELET COUNT 530 10^3/uL (134-434); RBC 4.26 M/mm3 (4.00-5.60)
[2024-02-06] MEDS: SODIUM CHLORIDE 0.9% 500 ML INFUS.BAG IV ONE ×2 (19:23→21:48)
[2024-02-06] MEDS: FAMOTIDINE 20 MG/50 ML IVPB 20 MG/50 ML MG IVPB ONE (19:23)
[2024-02-06] MEDS: ONDANSETRON 4 MG/2 ML VIAL IVPUSH ONE (19:23)
[2024-02-06 19:33] LABS: INR 1.24 (0.83-1.09); PROTHROMBIN TIME (PATIENT) 14.3 SEC (9.7-13.0)
[2024-02-06 19:36] LABS: ACTIVATED PTT 29.1 SECONDS (25.2-36.5)
[2024-02-06 20:01] LABS: POTASSIUM 5.4 mmol/L (3.5-5.1)
[2024-02-06 20:03] LABS: ALBUMIN 2.8 g/dl (3.4-5.0)
[2024-02-06 20:04] LABS: BLOOD UREA NITROGEN 26.1 mg/dL (7-18)
[2024-02-06 20:06] LABS: CREATININE 1.4 mg/dL (0.55-1.3)
[2024-02-06 20:08] LABS: BILIRUBIN,TOTAL 0.4 mg/dL (0.2-1); TOT PROT 7.1 g/dl (6.4-8.2)
[2024-02-06 21:37] VITALS: PULSE 82; TEMP 98.4
[2024-02-06 23:32] LABS: POTASSIUM 4.9 mmol/L (3.5-5.1)
[2024-02-06 23:35] LABS: BLOOD UREA NITROGEN 22.3 mg/dL (7-18); CALCIUM 8.2 mg/dL (8.5-10.1)
[2024-02-06 23:37] VITALS: BP 130/75
[2024-02-06 23:38] LABS: CREATININE 1.2 mg/dL (0.55-1.3)
[2024-02-07] MEDS ORDERED: DOXYCYCLINE HYCLATE 100 MG CAPSULE PO ONE (00:21)
[2024-02-07] MEDS: DOXYCYCLINE HYCLATE 100 MG CAPSULE PO ONE (00:22)
== END 2024-02-07 01:13 | disposition home or self-care (01) ==
LOC: JER 18:03
PROC: 3E033GC Introduction of Other Therapeutic Substance into Peripheral Vein, Percutaneous Approach (ICD-10-PCS; principal; 2024-02-06)
PROC: 3E033GC Introduction of Other Therapeutic Substance into Peripheral Vein, Percutaneous Approach (ICD-10-PCS; 2024-02-06)
DX: R53.1 Weakness (principal); R11.10 Vomiting, unspecified; E11.9 Type 2 diabetes mellitus without complications; K52.9 Noninfective gastroenteritis and colitis, unspecified; J18.9 Pneumonia, unspecified organism
CPT/HCPCS: 11042; 36415; 71045-TC-FY; 80048; 80053; 82803; 82962; 84484; 85025; 85610; 85730; 93005; 93010; 96365; 96375; 99285-25; A6022; G0277

== ENCOUNTER 2024-02-08 09:49 | Emergency (ER) | payer OTHER ==
[2024-02-08] MEDS ORDERED: MEROPENEM 1 GM VIAL (RESTRICTED TO ID) IVPB ONE (10:41)
[2024-02-08 10:45] LABS: BASO % 0.3 % (0-2.0); EOS % 0.1 % (0-4.5); HEMATOCRIT 33.3 % (35.4-49); HEMOGLOBIN 11.1 GM/dL (11.7-16.9); LYMPH % 3.5 % (8-40); MCH 25.8 pg (25.7-33.7); MCHC 33.4 g/dl (32.0-35.9); MEAN CELL VOLUME 77.3 fl (80-96); MEAN PLT VOLUME 6.8 fl (7.5-11.1); MONO % 4.2 % (3.8-10.2); NEUT % 91.9 % (42.8-82.8); PLATELET COUNT 396 10^3/uL (134-434); RDW 15.3 % (11.9-15.9); WHITE BLOOD COUNT 9.4 K/mm3 (4.0-10.0)
[2024-02-08] MEDS: PIPERACILLIN/TAZOB 4.5 GM 4.5 GM in DEXTROSE 5%-WATER 100 ML IVPB ONE (10:53)
[2024-02-08] MEDS: MEROPENEM 1 GM in DEXTROSE 5%-WATER 100 ML IVPB ONE (10:53)
[2024-02-08 10:56] LABS: VENOUS BASE EXCESS 0.1 mmol/L (-2-2); VENOUS O2 SATURATION 47.5 % (70-80); VENOUS PCO2 39.2 mmHg (38-52); VENOUS PH 7.414 (7.310-7.410)
[2024-02-08 11:02] LABS: INR 1.31 (0.83-1.09); PROTHROMBIN TIME (PATIENT) 15.2 SEC (9.7-13.0)
[2024-02-08 11:03] LABS: POTASSIUM 5.1 mmol/L (3.5-5.1)
[2024-02-08 11:05] VITALS: RESP 20; BMI 35.3
[2024-02-08 11:05] LABS: ACTIVATED PTT 29.7 SECONDS (25.2-36.5); BLOOD UREA NITROGEN 20.4 mg/dL (7-18); CALCIUM 8.5 mg/dL (8.5-10.1)
[2024-02-08 11:06] LABS: ALBUMIN 2.6 g/dl (3.4-5.0)
[2024-02-08 11:09] LABS: CREATININE 1.3 mg/dL (0.55-1.3)
[2024-02-08 11:11] LABS: BILIRUBIN,TOTAL 0.5 mg/dL (0.2-1)
[2024-02-08] MEDS ORDERED: ACETAMINOPHEN INJECTION 100 ML IVPB ONE (11:26)
[2024-02-08 11:33] LABS: ANISOCYTOSIS 0; MACROCYTOSIS 0
[2024-02-08] MEDS: SODIUM CHLORIDE 0.9% 500 ML INFUS.BAG IV ONE (12:07)
[2024-02-08] MEDS: ACETAMINOPHEN 1000 MG/100 ML BAG IVPB ONE (12:08)
[2024-02-08] MEDS ORDERED: VANCOMYCIN 1 GRAM (PRE-DOCKED) 1,000 MG/250 ML BAG IVPB ONE (12:19)
[2024-02-08] MEDS: VANCOMYCIN 1,000 MG in DEXTROSE 5%-WATER - 250 ML IVPB ONE (12:33)
[2024-02-08 12:48] VITALS: TEMP 99
[2024-02-08 13:57] VITALS: BP 127/70; PULSE 95
[2024-02-08 14:13] LABS: EPI CELLS 6 /uL (0-25.1); HYALINE CASTS 1 /uL (0-3.1); URINE APPEARANCE CLEAR; URINE BACTERIA 4 /uL (0-1359); URINE BILIRUBIN NEGATIVE (NEGATIVE); URINE COLOR YELLOW; URINE GLUCOSE (UA) TRACE (NEGATIVE); URINE KETONE TRACE (NEGATIVE); URINE LEUK ESTERASE NEGATIVE (NEGATIVE); URINE NITRITE NEGATIVE (NEGATIVE); URINE PROTEIN 2+ (NEGATIVE); URINE RBC 26 /uL (0-23.9); URINE WBC 7 /uL (0-25.8)
== END 2024-02-08 14:49 | disposition left against medical advice (07) ==
LOC: JER 09:49
PROC: 3E03329 Introduction of Other Anti-infective into Peripheral Vein, Percutaneous Approach (ICD-10-PCS; principal; 2024-02-08)
PROC: 3E03329 Introduction of Other Anti-infective into Peripheral Vein, Percutaneous Approach (ICD-10-PCS; 2024-02-08)
PROC: 3E033NZ Introduction of Analgesics, Hypnotics, Sedatives into Peripheral Vein, Percutaneous Approach (ICD-10-PCS; 2024-02-08)
DX: R53.1 Weakness (principal); R50.9 Fever, unspecified; R05.9 Cough, unspecified; R52 Pain, unspecified; A41.9 Sepsis, unspecified organism; R09.02 Hypoxemia; Z20.822 Contact with and (suspected) exposure to COVID-19
CPT/HCPCS: 0241U-QW; 36415; 71045-TC-FY; 71275-TC; 80053; 81003; 82550; 82803; 82962; 83605; 84484; 85025; 85610; 85730; 86850; 86900; 86901; 87040; 87086; 93005; 93010; 96365; 96367; 96375; 99285-25; J0131; Q9967

== ENCOUNTER 2024-02-08 19:46 | Inpatient (IN) | payer OTHER ==
[2024-02-08 20:05] VITALS: BMI 35.3
[2024-02-08] MEDS ORDERED: MEROPENEM 1 GM VIAL (RESTRICTED TO ID) IVPB ONE (22:17)
[2024-02-08] MEDS ORDERED: ACETAMINOPHEN INJECTION 100 ML IVPB ONE ×2 (22:17→22:29)
[2024-02-08] MEDS: ACETAMINOPHEN 1000 MG/100 ML BAG IVPB ONE (22:33)
[2024-02-08] MEDS: MEROPENEM 2 GM in DEXTROSE 5%-WATER 100 ML IVPB ONE (22:34)
[2024-02-08 22:39] LABS: HEMATOCRIT 30.9 % (35.4-49); HEMOGLOBIN 10.4 GM/dL (11.7-16.9); MCH 25.9 pg (25.7-33.7); MCHC 33.6 g/dl (32.0-35.9); MEAN CELL VOLUME 77.1 fl (80-96); MEAN PLT VOLUME 7.1 fl (7.5-11.1); PLATELET COUNT 381 10^3/uL (134-434); RBC 4.01 M/mm3 (4.00-5.60); RDW 15.3 % (11.9-15.9); WHITE BLOOD COUNT 8.7 K/mm3 (4.0-10.0)
[2024-02-08 23:06] LABS: POTASSIUM 4.6 mmol/L (3.5-5.1)
[2024-02-08 23:08] LABS: ALBUMIN 2.4 g/dl (3.4-5.0); BLOOD UREA NITROGEN 22.2 mg/dL (7-18); CALCIUM 8.3 mg/dL (8.5-10.1)
[2024-02-08 23:11] LABS: CREATININE 1.2 mg/dL (0.55-1.3)
[2024-02-08 23:13] LABS: BILIRUBIN,TOTAL 0.3 mg/dL (0.2-1); TOT PROT 6.6 g/dl (6.4-8.2)
[2024-02-08] MEDS ORDERED: METOCLOPRAMIDE HCL INJECTION 10 MG/2 ML VIAL ONE (23:35)
[2024-02-08 23:48] LABS: ANISOCYTOSIS 1+; OVALOCYTE 1+
[2024-02-08] MEDS: SODIUM CHLORIDE 0.9% 1000 ML INFUS.BAG IV ONE (23:48)
[2024-02-08] MEDS: METOCLOPRAMIDE HCL INJECTION 10 MG/2 ML VIAL IVPB ONE (23:48)
[2024-02-08 23:50] LABS: PLATELET ESTIMATE ADEQUATE
[2024-02-09] MEDS: SODIUM CHLORIDE 1,000 ML IV SCH (02:46)
[2024-02-09] MEDS: INSULIN ASPART SLIDING SCALE (NOVOLOG) 1 VIAL SQ SCH (07:56)
[2024-02-09 10:01] LABS: BASO % 0.7 % (0-2.0); EOS % 0.8 % (0-4.5); HEMATOCRIT 30.7 % (35.4-49); HEMOGLOBIN 10.3 GM/dL (11.7-16.9); LYMPH % 7.1 % (8-40); MCH 25.7 pg (25.7-33.7); MCHC 33.5 g/dl (32.0-35.9); MEAN CELL VOLUME 76.7 fl (80-96); MEAN PLT VOLUME 7.1 fl (7.5-11.1); MONO % 7.7 % (3.8-10.2); NEUT % 83.7 % (42.8-82.8); PLATELET COUNT 399 10^3/uL (134-434); RDW 15.2 % (11.9-15.9); WHITE BLOOD COUNT 8.6 K/mm3 (4.0-10.0)
[2024-02-09 10:25] LABS: POTASSIUM 4.6 mmol/L (3.5-5.1)
[2024-02-09 10:32] LABS: CALCIUM 8.5 mg/dL (8.5-10.1)
[2024-02-09 10:33] LABS: ALBUMIN 2.3 g/dl (3.4-5.0); BLOOD UREA NITROGEN 21.2 mg/dL (7-18)
[2024-02-09 10:35] LABS: PHOSPHOROUS 2.4 mg/dL (2.5-4.9)
[2024-02-09 10:37] LABS: TOT PROT 6.5 g/dl (6.4-8.2)
[2024-02-09] MEDS: ENOXAPARIN NA (PORCINE) 40 MG/0.4 ML DISP.SYRIN SQ SCH (10:42)
[2024-02-09] MEDS: ASPIRIN 81 MG CHEWABLE TABLETS PO SCH (10:42)
[2024-02-09] MEDS: CLOPIDOGREL BISULFATE 75 MG TABLET (FP) PO SCH (10:42)
[2024-02-09] MEDS: LISINOPRIL 20 MG TABLET PO SCH (10:42)
[2024-02-09] MEDS: MEROPENEM 1 GM in DEXTROSE 5%-WATER 100 ML IVPB SCH ×2 (10:43→14:07)
[2024-02-09 10:48] LABS: BILIRUBIN,TOTAL 0.4 mg/dL (0.2-1)
[2024-02-10 01:09] LABS: EPI CELLS 17 /uL (0-25.1); HYALINE CASTS 4 /uL (0-3.1); URINE APPEARANCE CLEAR; URINE BACTERIA 0 /uL (0-1359); URINE BILIRUBIN NEGATIVE (NEGATIVE); URINE COLOR YELLOW; URINE GLUCOSE (UA) NEGATIVE (NEGATIVE); URINE KETONE TRACE (NEGATIVE); URINE LEUK ESTERASE NEGATIVE (NEGATIVE); URINE NITRITE NEGATIVE (NEGATIVE); URINE PROTEIN 2+ (NEGATIVE); URINE WBC 20 /uL (0-25.8)
[2024-02-10 20:06] VITALS: RESP 18
[2024-02-11 10:26] LABS: POTASSIUM 4.8 mmol/L (3.5-5.1)
[2024-02-11 10:27] LABS: CALCIUM 8.7 mg/dL (8.5-10.1)
[2024-02-11 10:28] LABS: ALBUMIN 2.5 g/dl (3.4-5.0)
[2024-02-11 10:30] LABS: CREATININE 0.9 mg/dL (0.55-1.3)
[2024-02-11 10:33] LABS: BILIRUBIN,TOTAL 0.3 mg/dL (0.2-1); TOT PROT 6.8 g/dl (6.4-8.2)
[2024-02-12] MEDS: MEROPENEM 1 GM in DEXTROSE 5%-WATER 100 ML IVPB SCH (12:21)
[2024-02-12] MEDS: INSULIN (LEVEMIR) 100 UNITS/ML UNITS SQ SCH (23:39)
[2024-02-13 09:33] LABS: HEMATOCRIT 33.8 % (35.4-49); HEMOGLOBIN 11.1 GM/dL (11.7-16.9); MCH 25.3 pg (25.7-33.7); MCHC 32.8 g/dl (32.0-35.9); MEAN CELL VOLUME 77.2 fl (80-96); MEAN PLT VOLUME 6.9 fl (7.5-11.1); PLATELET COUNT 625 10^3/uL (134-434); RBC 4.38 M/mm3 (4.00-5.60); RDW 14.8 % (11.9-15.9); WHITE BLOOD COUNT 11.2 K/mm3 (4.0-10.0)
[2024-02-13 10:10] LABS: ALBUMIN 2.7 g/dl (3.4-5.0); BLOOD UREA NITROGEN 16.4 mg/dL (7-18); CALCIUM 9.3 mg/dL (8.5-10.1)
[2024-02-13 10:14] LABS: BILIRUBIN,TOTAL 0.3 mg/dL (0.2-1); CREATININE 0.9 mg/dL (0.55-1.3)
[2024-02-13] MEDS ORDERED: MEROPENEM 1 GM VIAL (RESTRICTED TO ID) IVPB ONE (17:06)
[2024-02-14 06:38] VITALS: BP 154/81; PULSE 72; TEMP 97.7
== END 2024-02-14 10:40 | disposition home or self-care (01) | DRG 638 ==
LOC: JER 19:46 → UNDOADMOB 21:52 → INTOOBSV 21:52 → JERBED 21:52 → J5S 02-09 04:12 → OBSVTOIN 02-09 15:06 → J5S 02-09 15:06 → JERBED 02-09 15:06
PROVIDERS: ADMIT Student in an Organized Health Care Education/Training Program; ATTEND Internal Medicine
DX: E11.69 Type 2 diabetes mellitus with other specified complication (principal); E87.1 Hypo-osmolality and hyponatremia; M86.671 Other chronic osteomyelitis, right ankle and foot; L97.418 Non-pressure chronic ulcer of right heel and midfoot with other specified severity; M86.171 Other acute osteomyelitis, right ankle and foot; I25.10 Atherosclerotic heart disease of native coronary artery without angina pectoris; E78.5 Hyperlipidemia, unspecified; I10 Essential (primary) hypertension; E11.51 Type 2 diabetes mellitus with diabetic peripheral angiopathy without gangrene; E11.610 Type 2 diabetes mellitus with diabetic neuropathic arthropathy; N28.89 Other specified disorders of kidney and ureter; E66.9 Obesity, unspecified; Z68.35 Body mass index [BMI] 35.0-35.9, adult; G47.33 Obstructive sleep apnea (adult) (pediatric); E11.65 Type 2 diabetes mellitus with hyperglycemia; E11.621 Type 2 diabetes mellitus with foot ulcer; R91.8 Other nonspecific abnormal finding of lung field
CPT/HCPCS: 36415; 73630-TC-LT; 73630-TC-RT-FY; 73720-TC; 80053; 81003; 82436; 82962; 83605; 83735; 83930; 83935; 84100; 84133; 84300; 85025; 85027; 85651; 86140; 93925-TC; 99285-25; J0131

== ENCOUNTER 2024-03-25 12:31 | Emergency (ER) | payer OTHER ==
[2024-03-25 12:36] VITALS: BP 132/74; PULSE 105; RESP 16; TEMP 99.2; BMI 35.3
[2024-03-25] MEDS ORDERED: METHOCARBAMOL 500 MG TABLET ONE (13:40)
[2024-03-25] MEDS ORDERED: KETOROLAC TROMETHAMINE 15 MG/ML VIAL ONE (13:40)
[2024-03-25] MEDS ORDERED: LIDOCAINE 5% TOPICAL PATCH ONE (13:41)
[2024-03-25] MEDS: LIDOCAINE 5% TOPICAL PATCH TP ONE (13:50)
[2024-03-25] MEDS: METHOCARBAMOL 750 MG TABLET PO ONE (13:50)
[2024-03-25] MEDS: KETOROLAC TROMETHAMINE 15 MG/ML VIAL IM ONE (13:50)
[2024-03-25] MEDS ORDERED: LIDOCAINE PATCH REMOVAL MC SCH (22:00)
== END 2024-03-25 19:52 | disposition home or self-care (01) ==
LOC: JER 12:31
PROC: 3E0233Z Introduction of Anti-inflammatory into Muscle, Percutaneous Approach (ICD-10-PCS; principal; 2024-03-25)
DX: M54.50 Low back pain, unspecified (principal); M54.6 Pain in thoracic spine
CPT/HCPCS: 72070-TC-FY; 72100-TC-FY; 96372; 99284-25

== ENCOUNTER 2024-03-27 21:50 | Emergency (ER) | payer OTHER ==
[2024-03-27 21:55] VITALS: TEMP 98.1; BMI 35.3
[2024-03-27] MEDS ORDERED: METHOCARBAMOL 500 MG TABLET ONE (22:31)
[2024-03-27] MEDS: METHOCARBAMOL 500 MG TABLET PO ONE (22:36)
[2024-03-27] MEDS ORDERED: LIDOCAINE 4% PATCH TP ONE (23:19)
[2024-03-27] MEDS ORDERED: KETOROLAC TROMETHAMINE 30 MG/1 ML VIAL ONE (23:19)
[2024-03-27] MEDS: KETOROLAC TROMETHAMINE 30 MG/1 ML VIAL IM ONE (23:28)
[2024-03-27] MEDS: LIDOCAINE PATCH REMOVAL MC SCH (23:29)
[2024-03-27] MEDS: LIDOCAINE 4% PATCH TP ONE (23:29)
[2024-03-27 23:47] VITALS: BP 127/60; PULSE 98; RESP 17
[2024-03-28] MEDS ORDERED: LIDOCAINE 4% PATCH TP SCH (10:00)
[2024-03-28] MEDS ORDERED: LIDOCAINE 4% PATCH TP ONE (23:19)
== END 2024-03-28 01:03 | disposition home or self-care (01) ==
LOC: JER 21:50
PROC: 3E0233Z Introduction of Anti-inflammatory into Muscle, Percutaneous Approach (ICD-10-PCS; principal; 2024-03-27)
DX: M54.50 Low back pain, unspecified (principal)
CPT/HCPCS: 99284-25

== ENCOUNTER 2024-03-29 18:16 | Emergency (ER) | payer OTHER ==
[2024-03-29 18:48] VITALS: RESP 18; TEMP 98; BMI 35.3
[2024-03-29] MEDS ORDERED: LIDOCAINE 4% PATCH TP ONE (19:16)
[2024-03-29] MEDS: LIDOCAINE 4% PATCH TP ONE (19:50)
[2024-03-29] MEDS: morphine CARPU-JECT 4 MG/1 ML DISP.SYRIN IVPUSH ONE (20:19)
[2024-03-29] MEDS ORDERED: oxyCODONE HCL 5 MG TABLET ONE (20:20)
[2024-03-29] MEDS ORDERED: KETOROLAC TROMETHAMINE 60 MG/2 ML VIAL ONE (20:21)
[2024-03-29] MEDS: oxyCODONE HCL 5 MG TABLET PO ONE (20:27)
[2024-03-29] MEDS: KETOROLAC TROMETHAMINE 60 MG/2 ML VIAL IM ONE (20:27)
[2024-03-29] MEDS: LIDOCAINE PATCH REMOVAL MC SCH (22:13)
[2024-03-29 22:51] VITALS: BP 125/65; PULSE 92
== END 2024-03-30 00:11 | disposition home or self-care (01) ==
LOC: JER 18:16
PROC: 3E0233Z Introduction of Anti-inflammatory into Muscle, Percutaneous Approach (ICD-10-PCS; principal; 2024-03-29)
DX: M54.50 Low back pain, unspecified (principal)
CPT/HCPCS: 72128-TC; 72131-TC; 96372; 99284-25

== ENCOUNTER 2024-03-30 23:31 | Emergency (ER) | payer OTHER ==
[2024-03-30 23:42] VITALS: BP 144/82; PULSE 104; RESP 17; TEMP 96.2; BMI 35.3
[2024-03-31] MEDS ORDERED: KETOROLAC TROMETHAMINE 30 MG/1 ML VIAL ONE (00:32)
[2024-03-31] MEDS ORDERED: LIDOCAINE 5% TOPICAL PATCH ONE (00:33)
[2024-03-31] MEDS: LIDOCAINE 5% TOPICAL PATCH TP ONE (00:37)
[2024-03-31] MEDS: KETOROLAC TROMETHAMINE 30 MG/1 ML VIAL IM ONE (00:37)
[2024-03-31] MEDS ORDERED: LIDOCAINE 5% TOPICAL PATCH TP ONE (02:21)
[2024-03-31] MEDS ORDERED: LIDOCAINE PATCH REMOVAL MC ONE (12:00)
== END 2024-03-31 03:23 | disposition left against medical advice (07) ==
LOC: JER 23:31
PROC: 3E023GC Introduction of Other Therapeutic Substance into Muscle, Percutaneous Approach (ICD-10-PCS; principal; 2024-03-31)
DX: M54.50 Low back pain, unspecified (principal); G89.29 Other chronic pain
CPT/HCPCS: 96372; 99284-25

== ENCOUNTER 2024-04-01 17:08 | Emergency (ER) | payer OTHER ==
[2024-04-01 17:31] VITALS: RESP 18; BMI 35.3
[2024-04-01] MEDS ORDERED: LIDOCAINE 4% PATCH TP ONE (18:19)
[2024-04-01] MEDS ORDERED: ACETAMINOPHEN 500 MG TABLET (FP) ONE (18:20)
[2024-04-01] MEDS: ACETAMINOPHEN 500 MG TABLET (FP) PO ONE (18:26)
[2024-04-01] MEDS: LIDOCAINE 4% PATCH TP ONE ×2 (18:26)
[2024-04-01 19:40] VITALS: BP 135/72; PULSE 106; TEMP 98.3
[2024-04-01] MEDS ORDERED: LIDOCAINE 5% TOPICAL PATCH ONE (19:53)
[2024-04-01] MEDS ORDERED: KETOROLAC TROMETHAMINE 30 MG/1 ML VIAL ONE (19:53)
[2024-04-01] MEDS: KETOROLAC TROMETHAMINE 30 MG/1 ML VIAL IM ONE (20:05)
[2024-04-01] MEDS ORDERED: LIDOCAINE PATCH REMOVAL MC SCH ×2 (22:00)
== END 2024-04-01 22:34 | disposition home or self-care (01) ==
LOC: JER 17:08
PROC: 3E0133Z Introduction of Anti-inflammatory into Subcutaneous Tissue, Percutaneous Approach (ICD-10-PCS; principal; 2024-04-01)
DX: M54.50 Low back pain, unspecified (principal); G89.29 Other chronic pain; R26.2 Difficulty in walking, not elsewhere classified
CPT/HCPCS: 96372; 99284-25

== ENCOUNTER 2024-04-02 20:09 | Inpatient (IN) | payer OTHER ==
[2024-04-02] MEDS ORDERED: VANCOMYCIN HCL 1,500 MG in DEXTROSE 5%-WATER - 500 ML IVPB ONE (20:55)
[2024-04-02] MEDS ORDERED: LIDOCAINE 5% TOPICAL PATCH ONE (21:16)
[2024-04-02] MEDS ORDERED: ACETAMINOPHEN 325 MG TABLET (FP) ONE (21:16)
[2024-04-02] MEDS: LIDOCAINE 4% PATCH TP ONE (21:19)
[2024-04-02] MEDS: ACETAMINOPHEN 325 MG TABLET (FP) PO ONE (21:19)
[2024-04-02] MEDS ORDERED: CEFEPIME 2 GM/100 ML BAG IVPB ONE (22:28)
[2024-04-02 22:34] LABS: HEMATOCRIT 25.1 % (35.4-49); HEMOGLOBIN 8.2 GM/dL (11.7-16.9); MCHC 32.7 g/dl (32.0-35.9); MEAN CELL VOLUME 73.4 fl (80-96); MEAN PLT VOLUME 6.7 fl (7.5-11.1); PLATELET COUNT 744 10^3/uL (134-434); RBC 3.42 M/mm3 (4.00-5.60); RDW 16.9 % (11.9-15.9); WHITE BLOOD COUNT 20.6 K/mm3 (4.0-10.0)
[2024-04-02 22:41] LABS: INR 1.54 (0.83-1.09); PROTHROMBIN TIME (PATIENT) 17.2 SEC (9.7-13.0)
[2024-04-02 22:43] LABS: ACTIVATED PTT 30.6 SECONDS (25.2-36.5)
[2024-04-02 22:49] LABS: POTASSIUM 5.2 mmol/L (3.5-5.1)
[2024-04-02 22:52] LABS: ALBUMIN 1.9 g/dl (3.4-5.0); BLOOD UREA NITROGEN 19.8 mg/dL (7-18); MAGNESIUM 1.4 mg/dL (1.8-2.4)
[2024-04-02] MEDS: CEFEPIME HCL/D5W 2 GM/50 ML BAG IVPB ONE (22:53)
[2024-04-02 22:55] LABS: CREATININE 0.9 mg/dL (0.55-1.3)
[2024-04-02 22:57] LABS: BILIRUBIN,TOTAL 0.5 mg/dL (0.2-1); TOT PROT 6.5 g/dl (6.4-8.2)
[2024-04-02 23:02] LABS: PLATELET ESTIMATE INCREASED
[2024-04-02] MEDS: VANCOMYCIN PREMIX 1.5 GM 1,500 MG/300 ML BAG IVPB ONE (23:11)
[2024-04-02] MEDS: LACTATED RINGERS SOLUTION 1000 ML INFUS.BAG IV ONE (23:11)
[2024-04-02 23:12] LABS: ERYTHROCYTE SEDIMENTATION RATE 122 mm/hr (0-20)
[2024-04-02] MEDS ORDERED: MAGNESIUM SULFATE IN WATER 2 GM/50 ML IVPB IVPB ONE (23:37)
[2024-04-03] MEDS: MAGNESIUM SULF 50% (8.12 MEQ/2 ML-1 GM VIAL) IVPB ONE (00:50)
[2024-04-03 01:54] VITALS: BMI 31.9
[2024-04-03] MEDS: SODIUM CHLORIDE 1,000 ML IV SCH (02:23)
[2024-04-03] MEDS: MEROPENEM 1 GM in DEXTROSE 5%-WATER 100 ML IVPB SCH (02:23)
[2024-04-03] MEDS: KETOROLAC TROMETHAMINE 30 MG/1 ML VIAL IVPUSH ONE (02:24)
[2024-04-03] MEDS: INSULIN ASPART SLIDING SCALE (NOVOLOG) 1 VIAL SQ SCH ×2 (06:06→17:22)
[2024-04-03 08:09] LABS: BASO % 0.3 % (0-2.0); EOS % 0.1 % (0-4.5); HEMOGLOBIN 7.1 GM/dL (11.7-16.9); LYMPH % 4.5 % (8-40); MCH 24.2 pg (25.7-33.7); MCHC 32.5 g/dl (32.0-35.9); MEAN CELL VOLUME 74.6 fl (80-96); MEAN PLT VOLUME 6.9 fl (7.5-11.1); MONO % 6.4 % (3.8-10.2); NEUT % 88.7 % (42.8-82.8); PLATELET COUNT 608 10^3/uL (134-434); RBC 2.95 M/mm3 (4.00-5.60); RDW 16.5 % (11.9-15.9); WHITE BLOOD COUNT 18.2 K/mm3 (4.0-10.0)
[2024-04-03] MEDS: ENOXAPARIN NA (PORCINE) 40 MG/0.4 ML DISP.SYRIN SQ SCH (10:03)
[2024-04-03 10:31] LABS: ALBUMIN 1.6 g/dl (3.4-5.0); BILIRUBIN,TOTAL 0.4 mg/dL (0.2-1); BLOOD UREA NITROGEN 22.2 mg/dL (7-18); CALCIUM 8.7 mg/dL (8.5-10.1); CREATININE 0.9 mg/dL (0.55-1.3); MAGNESIUM 1.8 mg/dL (1.8-2.4); PHOSPHOROUS 4.7 mg/dL (2.5-4.9); POTASSIUM 4.7 mmol/L (3.5-5.1); TOT PROT 5.7 g/dl (6.4-8.2)
[2024-04-03] MEDS: LIDOCAINE 5% TOPICAL PATCH TP SCH (12:00)
[2024-04-03] MEDS: INSULIN (LEVEMIR) 100 UNITS/ML UNITS SQ SCH (12:00)
[2024-04-03] MEDS: VANCOMYCIN PREMIX 1.5 GM 1,500 MG/300 ML BAG IVPB ONE (12:00)
[2024-04-03] MEDS ORDERED: LIDOCAINE 4% PATCH TP SCH (12:00)
[2024-04-03] MEDS: KETOROLAC TROMETHAMINE 15 MG/ML VIAL IVPUSH ONE (12:06)
[2024-04-03] MEDS: ACETAMINOPHEN 325 MG TABLET (FP) PO ONE (17:17)
[2024-04-03] MEDS: MEROPENEM 1 GM in SODIUM CHLORIDE 100 ML IVPB SCH (17:22)
[2024-04-03] MEDS: LIDOCAINE PATCH REMOVAL MC SCH (21:53)
[2024-04-03] MEDS: METHOCARBAMOL 500 MG TABLET PO SCH (21:54)
[2024-04-03] MEDS: oxyCODONE HCL 5 MG TABLET PO PRN (21:54)
[2024-04-03] MEDS ORDERED: LIDOCAINE PATCH REMOVAL MC SCH (22:00)
[2024-04-03] MEDS: VANCOMYCIN/WATER 1250 MG 1,250 MG/250 ML BAG IVPB SCH (23:07)
[2024-04-04] MEDS: ACETAMINOPHEN 500 MG TABLET (FP) PO ONE (00:19)
[2024-04-04] MEDS: ACETAMINOPHEN 325 MG TABLET (FP) PO ONE (00:56)
[2024-04-04] MEDS ORDERED: MEROPENEM 1 GM in SODIUM CHLORIDE 100 ML IVPB SCH (02:00)
[2024-04-04 08:15] LABS: HEMATOCRIT 23.8 % (35.4-49); HEMOGLOBIN 7.7 GM/dL (11.7-16.9); MCH 24.1 pg (25.7-33.7); MCHC 32.2 g/dl (32.0-35.9); MEAN CELL VOLUME 74.9 fl (80-96); MEAN PLT VOLUME 6.9 fl (7.5-11.1); PLATELET COUNT 663 10^3/uL (134-434); RBC 3.19 M/mm3 (4.00-5.60); RDW 16.4 % (11.9-15.9); WHITE BLOOD COUNT 19.1 K/mm3 (4.0-10.0)
[2024-04-04 08:23] LABS: POTASSIUM 4.6 mmol/L (3.5-5.1)
[2024-04-04 08:29] LABS: CALCIUM 8.5 mg/dL (8.5-10.1)
[2024-04-04 08:32] LABS: CREATININE 0.8 mg/dL (0.55-1.3)
[2024-04-04] MEDS ORDERED: LIDOCAINE 4% PATCH TP SCH (10:00)
[2024-04-04] MEDS: MEROPENEM 1 GM in DEXTROSE 5%-WATER 100 ML IVPB SCH (10:25)
[2024-04-04] MEDS: ASPIRIN COATED 81 MG TABLET.EC PO SCH (10:26)
[2024-04-04] MEDS: CLOPIDOGREL BISULFATE 75 MG TABLET (FP) PO SCH (10:27)
[2024-04-04] MEDS: LISINOPRIL 20 MG TABLET PO SCH (10:27)
[2024-04-04] MEDS: KETOROLAC TROMETHAMINE 10 MG TABLET PO ONE (10:29)
[2024-04-04] MEDS ORDERED: KETOROLAC TROMETHAMINE 15 MG/ML VIAL IVPUSH PRN (11:30)
[2024-04-05] MEDS: ACETAMINOPHEN 325 MG TABLET (FP) PO PRN (21:48)
[2024-04-05] MEDS: INSULIN (LEVEMIR) 100 UNITS/ML UNITS SQ SCH (21:49)
[2024-04-05] MEDS: SODIUM CHLORIDE IVPB SCH (21:50)
[2024-04-05] MEDS: CEFTAROLINE FOSAMIL ACETATE 600 MG in DEXTROSE 5%-WATER - 250 ML IVPB SCH (21:50)
[2024-04-05] MEDS: DAPTOMYCIN IVPB SCH (21:50)
[2024-04-06 10:19] LABS: HEMATOCRIT 27.4 % (35.4-49); HEMOGLOBIN 8.7 GM/dL (11.7-16.9); MCH 23.7 pg (25.7-33.7); MCHC 31.7 g/dl (32.0-35.9); MEAN CELL VOLUME 74.9 fl (80-96); MEAN PLT VOLUME 6.8 fl (7.5-11.1); PLATELET COUNT 591 10^3/uL (134-434); RBC 3.66 M/mm3 (4.00-5.60); RDW 16.6 % (11.9-15.9); WHITE BLOOD COUNT 14.5 K/mm3 (4.0-10.0)
[2024-04-06 10:41] LABS: POTASSIUM 4.6 mmol/L (3.5-5.1)
[2024-04-06 10:43] LABS: CALCIUM 8.9 mg/dL (8.5-10.1)
[2024-04-06 10:44] LABS: BLOOD UREA NITROGEN 20.3 mg/dL (7-18)
[2024-04-06 10:47] LABS: CREATININE 0.8 mg/dL (0.55-1.3)
[2024-04-06] MEDS ORDERED: SODIUM CHLORIDE IVPB SCH (12:27)
[2024-04-06] MEDS ORDERED: CEFTAROLINE FOSAMIL ACETATE IVPB SCH (12:27)
[2024-04-06] MEDS ORDERED: INSULIN (LEVEMIR) 100 UNITS/ML UNITS SQ SCH (17:56)
[2024-04-06] MEDS ORDERED: oxyCODONE HCL 5 MG TABLET PO PRN (18:15)
[2024-04-06] MEDS: INSULIN (LEVEMIR) 100 UNITS/ML UNITS SQ SCH (21:29)
[2024-04-07] MEDS: CEFAZOLIN SODIUM 2 GM in DEXTROSE 5%-WATER 100 ML IVPB SCH (10:29)
[2024-04-07] MEDS ORDERED: traMADol HCL 50 MG TABLET PO PRN (14:12)
[2024-04-07] MEDS: SENNOSIDES 8.6MG TABLET (FP) PO SCH (21:10)
[2024-04-07] MEDS: oxyCODONE HCL 5 MG TABLET PO PRN (22:29)
[2024-04-08] MEDS ORDERED: INSULIN (LEVEMIR) 100 UNITS/ML UNITS SQ ONE (06:49)
[2024-04-08] MEDS ORDERED: INSULIN ASPART SLIDING SCALE (NOVOLOG) 1 VIAL SQ ONE (06:49)
[2024-04-08 09:24] LABS: POTASSIUM 5.1 mmol/L (3.5-5.1)
[2024-04-08 09:25] LABS: CALCIUM 9.1 mg/dL (8.5-10.1)
[2024-04-08 09:26] LABS: BLOOD UREA NITROGEN 20.4 mg/dL (7-18)
[2024-04-08 09:29] LABS: CREATININE 0.8 mg/dL (0.55-1.3)
[2024-04-09] MEDS ORDERED: INSULIN ASPART SLIDING SCALE (NOVOLOG) 1 VIAL SQ ONE (06:40)
[2024-04-09] MEDS ORDERED: INSULIN (LEVEMIR) 100 UNITS/ML UNITS SQ ONE (06:40)
[2024-04-09 08:00] LABS: HEMATOCRIT 29.2 % (35.4-49); HEMOGLOBIN 9.2 GM/dL (11.7-16.9); MCH 23.6 pg (25.7-33.7); MCHC 31.5 g/dl (32.0-35.9); MEAN CELL VOLUME 74.9 fl (80-96); MEAN PLT VOLUME 6.7 fl (7.5-11.1); PLATELET COUNT 637 10^3/uL (134-434); RBC 3.89 M/mm3 (4.00-5.60); RDW 16.8 % (11.9-15.9); WHITE BLOOD COUNT 14.8 K/mm3 (4.0-10.0)
[2024-04-09 08:13] LABS: POTASSIUM 5.1 mmol/L (3.5-5.1)
[2024-04-09 08:17] LABS: ALBUMIN 1.8 g/dl (3.4-5.0); BLOOD UREA NITROGEN 18.9 mg/dL (7-18); MAGNESIUM 1.6 mg/dL (1.8-2.4)
[2024-04-09 08:20] LABS: CREATININE 0.9 mg/dL (0.55-1.3); PHOSPHOROUS 3.8 mg/dL (2.5-4.9)
[2024-04-09 08:22] LABS: BILIRUBIN,TOTAL 0.6 mg/dL (0.2-1); TOT PROT 6.5 g/dl (6.4-8.2)
[2024-04-09] MEDS ORDERED: MAGNESIUM SULF 50% (8.12 MEQ/2 ML-1 GM VIAL) IVPB ONE (08:35)
[2024-04-09] MEDS: MAGNESIUM SULF 50% (8.12 MEQ/2 ML-1 GM VIAL) IVPB ONE (12:26)
[2024-04-09] MEDS: FUROSEMIDE 40 MG/4 ML INJECTABLE VIAL IVPUSH ONE (16:14)
[2024-04-09] MEDS: SODIUM CHLORIDE 1 GM TABLET PO SCH (18:13)
[2024-04-09 21:45] LABS: CHLORIDE 95 mmol/L (98-107); POTASSIUM 4.7 mmol/L (3.5-5.1); SODIUM 127 mmol/L (136-145)
[2024-04-09 21:46] LABS: ANION GAP 7 mmol/L (4-13); CALCIUM 8.9 mg/dL (8.5-10.1); CO2 25 mmol/L (21-32)
[2024-04-09 21:47] LABS: BLOOD UREA NITROGEN 22.7 mg/dL (7-18)
[2024-04-09 21:49] LABS: CREATININE 1.1 mg/dL (0.55-1.3)
[2024-04-09 21:51] LABS: GLUCOSE,RANDOM 403 mg/dL (74-106)
[2024-04-09] MEDS: INSULIN (LEVEMIR) 100 UNITS/ML UNITS SQ SCH (21:59)
[2024-04-09] MEDS: INSULIN (NOVOLOG) ASPART 100 UNITS/ML 10ML VIAL SQ ONE (22:38)
[2024-04-10] MEDS: INSULIN (LEVEMIR) 100 UNITS/ML UNITS SQ SCH ×2 (06:42→22:22)
[2024-04-10] MEDS: SODIUM CHLORIDE 1 GM TABLET PO ONE (07:12)
[2024-04-10] MEDS ORDERED: INSULIN (LEVEMIR) 100 UNITS/ML UNITS SQ SCH (08:27)
[2024-04-10] MEDS: CEFAZOLIN SODIUM 2 GM in SODIUM CHLORIDE 100 ML IVPB SCH (09:53)
[2024-04-10] MEDS: ceFAZolin SODIUM 1 GM VIAL IVPB ONE (14:11)
[2024-04-10] MEDS ORDERED: ACETAMINOPHEN INJECTION 100 ML IVPB ONE (14:11)
[2024-04-10] MEDS ORDERED: BUPIVACAINE HCL/PF 0.5% (5MG/ML) 10 ML VIAL ONE (14:11)
[2024-04-10] MEDS ORDERED: DEXAMETHASONE SOD PHOSPHATE 10 MG/1 ML VIAL ONE (14:11)
[2024-04-10] MEDS ORDERED: PROPOFOL 40 ML ONE (14:53)
[2024-04-10] MEDS ORDERED: FENTANYL CITRATE/PF 50 MCG/ML VIAL ONE ×3 (14:53→17:07)
[2024-04-10] MEDS ORDERED: MIDAZOLAM HCL 2 MG/2 ML SINGLE DOSE VIAL ONE (14:53)
[2024-04-10] MEDS ORDERED: ROCURONIUM BROMIDE 50 MG/5 ML SYRINGE ONE (14:54)
[2024-04-10] MEDS: INSULIN (LEVEMIR) 100 UNITS/ML UNITS SQ ONE (15:21)
[2024-04-10] MEDS ORDERED: SUGAMMADEX SODIUM 200 MG/2 ML VIAL ONE (16:23)
[2024-04-10] MEDS ORDERED: CALCIUM CHLORIDE 1 GM/10 ML *DISP.SYRIN ONE (17:42)
[2024-04-10] MEDS ORDERED: ONDANSETRON 4 MG/2 ML VIAL ONE (17:43)
[2024-04-10] MEDS ORDERED: morphine SULFATE 4 MG/ML VIAL IVPUSH PRN (18:25)
[2024-04-10] MEDS ORDERED: ONDANSETRON 4 MG/2 ML VIAL IVPUSH PRN (18:30)
[2024-04-10] MEDS ORDERED: traMADol HCL 50 MG TABLET PO PRN (18:41)
[2024-04-10 18:51] LABS: BASO % 0.5 % (0-2.0); EOS % 0.8 % (0-4.5); HEMATOCRIT 26.3 % (35.4-49); HEMOGLOBIN 8.3 GM/dL (11.7-16.9); LYMPH % 7.9 % (8-40); MCHC 31.7 g/dl (32.0-35.9); MEAN CELL VOLUME 75.6 fl (80-96); MEAN PLT VOLUME 6.6 fl (7.5-11.1); MONO % 3.5 % (3.8-10.2); NEUT % 87.3 % (42.8-82.8); PLATELET COUNT 462 10^3/uL (134-434); RBC 3.48 M/mm3 (4.00-5.60); RDW 17.5 % (11.9-15.9)
[2024-04-10 19:29] LABS: ANISOCYTOSIS 2+; MACROCYTOSIS 0
[2024-04-10] MEDS: LACTATED RINGERS SOLUTION 1,000 ML IV SCH (22:22)
[2024-04-10] MEDS: SENNOSIDES 8.6MG TABLET (FP) PO SCH (22:23)
[2024-04-10] MEDS: METHOCARBAMOL 500 MG TABLET PO SCH (22:23)
[2024-04-10] MEDS: LIDOCAINE PATCH REMOVAL MC SCH (22:23)
[2024-04-11] MEDS: CEFAZOLIN SODIUM 2 GM in SODIUM CHLORIDE 100 ML IVPB SCH (01:10)
[2024-04-11] MEDS: INSULIN ASPART SLIDING SCALE (NOVOLOG) 1 VIAL SQ SCH (06:28)
[2024-04-11 08:54] LABS: BASO % 0.1 % (0-2.0); HEMATOCRIT 25.2 % (35.4-49); HEMOGLOBIN 8.2 GM/dL (11.7-16.9); MCH 24.2 pg (25.7-33.7); MCHC 32.6 g/dl (32.0-35.9); MEAN CELL VOLUME 74.3 fl (80-96); MEAN PLT VOLUME 6.7 fl (7.5-11.1); MONO % 5.2 % (3.8-10.2); NEUT % 85.7 % (42.8-82.8); PLATELET COUNT 532 10^3/uL (134-434); RBC 3.39 M/mm3 (4.00-5.60)
[2024-04-11 09:10] LABS: POTASSIUM 5.4 mmol/L (3.5-5.1)
[2024-04-11 09:15] LABS: CALCIUM 9.2 mg/dL (8.5-10.1)
[2024-04-11 09:16] LABS: ALBUMIN 1.8 g/dl (3.4-5.0); BLOOD UREA NITROGEN 29.4 mg/dL (7-18); MAGNESIUM 1.7 mg/dL (1.8-2.4)
[2024-04-11 09:19] LABS: CREATININE 1.2 mg/dL (0.55-1.3); PHOSPHOROUS 4.3 mg/dL (2.5-4.9)
[2024-04-11 09:21] LABS: BILIRUBIN,TOTAL 0.4 mg/dL (0.2-1); TOT PROT 6.4 g/dl (6.4-8.2)
[2024-04-11 09:53] LABS: ANISOCYTOSIS 1+; MACROCYTOSIS 0
[2024-04-11] MEDS: ENOXAPARIN NA (PORCINE) 40 MG/0.4 ML DISP.SYRIN SQ SCH (10:16)
[2024-04-11] MEDS: LISINOPRIL 20 MG TABLET PO SCH (10:17)
[2024-04-11] MEDS: CLOPIDOGREL BISULFATE 75 MG TABLET (FP) PO SCH (10:17)
[2024-04-11] MEDS: ASPIRIN COATED 81 MG TABLET.EC PO SCH (10:17)
[2024-04-11] MEDS: LIDOCAINE 5% TOPICAL PATCH TP SCH (10:18)
[2024-04-11] MEDS: SODIUM ZIRCONIUM CYCLOSILICATE (LOKELMA) 5 GM PACKET PO SCH (12:24)
[2024-04-11] MEDS: MAGNESIUM OXIDE 400 MG TABLET (FP) PO ONE (12:24)
[2024-04-11] MEDS: oxyCODONE HCL 5 MG TABLET PO PRN (20:05)
[2024-04-12] MEDS ORDERED: INSULIN ASPART SLIDING SCALE (NOVOLOG) 1 VIAL SQ ONE (06:46)
[2024-04-12] MEDS ORDERED: INSULIN (LEVEMIR) 100 UNITS/ML UNITS SQ ONE (06:46)
[2024-04-12] MEDS: oxyCODONE HCL 5 MG TABLET PO PRN (09:29)
[2024-04-12 21:34] LABS: BASO % 0.3 % (0-2.0); EOS % 0.3 % (0-4.5); HEMATOCRIT 22.1 % (35.4-49); HEMOGLOBIN 7.1 GM/dL (11.7-16.9); MEAN PLT VOLUME 6.8 fl (7.5-11.1); MONO % 6.8 % (3.8-10.2); NEUT % 79.6 % (42.8-82.8); PLATELET COUNT 477 10^3/uL (134-434); RBC 2.95 M/mm3 (4.00-5.60); RDW 17.6 % (11.9-15.9); WHITE BLOOD COUNT 16.3 K/mm3 (4.0-10.0)
[2024-04-12] MEDS: INSULIN (LEVEMIR) 100 UNITS/ML UNITS SQ SCH (22:41)
[2024-04-13] MEDS: ACETAMINOPHEN 325 MG TABLET (FP) PO PRN (01:04)
[2024-04-13] MEDS ORDERED: INSULIN (LEVEMIR) 100 UNITS/ML UNITS SQ ONE (06:54)
[2024-04-13] MEDS ORDERED: INSULIN ASPART SLIDING SCALE (NOVOLOG) 1 VIAL SQ ONE (06:54)
[2024-04-13 06:57] LABS: RBC 2.97 M/mm3 (4.00-5.60); WHITE BLOOD COUNT 16.1 K/mm3 (4.0-10.0)
[2024-04-13 06:58] LABS: HEMOGLOBIN 7.2 GM/dL (11.7-16.9); MCH 24.4 pg (25.7-33.7); MCHC 31.6 g/dl (32.0-35.9); MEAN CELL VOLUME 77.4 fl (80-96); PLATELET COUNT 459 10^3/uL (134-434); RDW 17.5 % (11.9-15.9)
[2024-04-13 07:19] LABS: POTASSIUM 4.8 mmol/L (3.5-5.1)
[2024-04-13 07:22] LABS: CALCIUM 8.8 mg/dL (8.5-10.1)
[2024-04-13 07:23] LABS: BLOOD UREA NITROGEN 33.3 mg/dL (7-18); MAGNESIUM 1.7 mg/dL (1.8-2.4)
[2024-04-13 07:26] LABS: CREATININE 1.1 mg/dL (0.55-1.3); PHOSPHOROUS 4.3 mg/dL (2.5-4.9)
[2024-04-13] MEDS: MUPIROCIN 2% TOPICAL OINTMENT FOR DECOLONIZATION NS SCH (10:00)
[2024-04-13 11:03] LABS: BASO % 0.4 % (0-2.0); EOS % 0.2 % (0-4.5); HEMATOCRIT 21.6 % (35.4-49); MCH 24.4 pg (25.7-33.7); MCHC 32.1 g/dl (32.0-35.9); MEAN CELL VOLUME 76.1 fl (80-96); MEAN PLT VOLUME 6.9 fl (7.5-11.1); MONO % 6.3 % (3.8-10.2); NEUT % 81.1 % (42.8-82.8); PLATELET COUNT 478 10^3/uL (134-434); RBC 2.84 M/mm3 (4.00-5.60); RDW 17.6 % (11.9-15.9); WHITE BLOOD COUNT 16.3 K/mm3 (4.0-10.0)
[2024-04-13 11:13] LABS: HEMOGLOBIN 6.9 GM/dL (11.7-16.9)
[2024-04-13] MEDS: PANTOPRAZOLE SODIUM 40 MG VIAL IVPUSH SCH (12:38)
[2024-04-13] MEDS: FUROSEMIDE 40 MG/4 ML INJECTABLE VIAL IVPUSH ONE ×2 (12:39→13:40)
[2024-04-13] MEDS: INSULIN ASPART SLIDING SCALE (NOVOLOG) 1 VIAL SQ SCH (13:39)
[2024-04-13] MEDS ORDERED: oxyCODONE HCL 5 MG TABLET PO PRN ×3 (15:51→16:56)
[2024-04-13] MEDS ORDERED: traMADol HCL 50 MG TABLET PO PRN (15:51)
[2024-04-13] MEDS ORDERED: ACETAMINOPHEN 325 MG TABLET (FP) PO PRN (15:51)
[2024-04-13] MEDS ORDERED: morphine SULFATE 4 MG/ML VIAL IVPUSH PRN (15:51)
[2024-04-13] MEDS: MAGNESIUM SULF 50% (8.12 MEQ/2 ML-1 GM VIAL) IVPB ONE ×2 (15:56→16:50)
[2024-04-13] MEDS: CEFAZOLIN SODIUM 2 GM in SODIUM CHLORIDE 100 ML IVPB SCH (17:39)
[2024-04-13] MEDS ORDERED: INSULIN (NOVOLOG) ASPART 100 UNITS/ML 10ML VIAL ONE (17:47)
[2024-04-13] MEDS: LIDOCAINE PATCH REMOVAL MC SCH (21:21)
[2024-04-13] MEDS: SENNOSIDES 8.6MG TABLET (FP) PO SCH (21:21)
[2024-04-13] MEDS: CHLORHEXIDINE GLUCONATE 4% CLEANSER FOR DECOLONIZATION TP SCH (21:21)
[2024-04-13] MEDS: INSULIN (LEVEMIR) 100 UNITS/ML UNITS SQ SCH (21:21)
[2024-04-13] MEDS: METHOCARBAMOL 500 MG TABLET PO SCH (21:22)
[2024-04-13] MEDS ORDERED: MUPIROCIN 2% TOPICAL OINTMENT FOR DECOLONIZATION NS SCH (22:00)
[2024-04-13] MEDS ORDERED: CHLORHEXIDINE GLUCONATE 4% CLEANSER FOR DECOLONIZATION TP SCH (22:00)
[2024-04-13] MEDS ORDERED: DEXTROSE 50%-WATER 25 GM/50 ML DISP.SYRIN IVPUSH PRN (22:47)
[2024-04-14 07:02] LABS: INR 1.19 (0.83-1.09); PROTHROMBIN TIME (PATIENT) 13.4 SEC (9.7-13.0)
[2024-04-14 07:19] LABS: POTASSIUM 4.3 mmol/L (3.5-5.1)
[2024-04-14 07:21] LABS: ALBUMIN 1.8 g/dl (3.4-5.0); BLOOD UREA NITROGEN 32.1 mg/dL (7-18); CALCIUM 8.8 mg/dL (8.5-10.1); MAGNESIUM 2.3 mg/dL (1.8-2.4)
[2024-04-14 07:22] LABS: BASO % 0.4 % (0-2.0); EOS % 0.4 % (0-4.5); HEMATOCRIT 24.3 % (35.4-49); LYMPH % 10.3 % (8-40); MCH 25.6 pg (25.7-33.7); MCHC 33.1 g/dl (32.0-35.9); MEAN CELL VOLUME 77.6 fl (80-96); MEAN PLT VOLUME 7.3 fl (7.5-11.1); NEUT % 83.9 % (42.8-82.8); PLATELET COUNT 432 10^3/uL (134-434); RBC 3.14 M/mm3 (4.00-5.60); RDW 17.1 % (11.9-15.9); WHITE BLOOD COUNT 17.3 K/mm3 (4.0-10.0)
[2024-04-14 07:24] LABS: CREATININE 1.2 mg/dL (0.55-1.3); PHOSPHOROUS 4.5 mg/dL (2.5-4.9)
[2024-04-14 07:26] LABS: BILIRUBIN,TOTAL 0.3 mg/dL (0.2-1); TOT PROT 6.1 g/dl (6.4-8.2)
[2024-04-14 07:30] LABS: N-TERMINAL BNP 5989.6 pg/ml (5-125)
[2024-04-14] MEDS: ENOXAPARIN NA (PORCINE) 40 MG/0.4 ML DISP.SYRIN SQ SCH (09:49)
[2024-04-14] MEDS: LIDOCAINE 5% TOPICAL PATCH TP SCH (09:49)
[2024-04-14] MEDS: CLOPIDOGREL BISULFATE 75 MG TABLET (FP) PO SCH (09:53)
[2024-04-14] MEDS: ASPIRIN COATED 81 MG TABLET.EC PO SCH (09:55)
[2024-04-14] MEDS: FUROSEMIDE 40 MG/4 ML INJECTABLE VIAL IVPUSH ONE (13:02)
[2024-04-15 06:41] LABS: BASO % 0.3 % (0-2.0); EOS % 0.8 % (0-4.5); HEMATOCRIT 24.3 % (35.4-49); HEMOGLOBIN 7.7 GM/dL (11.7-16.9); LYMPH % 9.8 % (8-40); MCH 24.9 pg (25.7-33.7); MCHC 31.6 g/dl (32.0-35.9); MEAN CELL VOLUME 78.8 fl (80-96); MEAN PLT VOLUME 7.4 fl (7.5-11.1); MONO % 6.1 % (3.8-10.2); PLATELET COUNT 391 10^3/uL (134-434); RBC 3.08 M/mm3 (4.00-5.60); RDW 17.6 % (11.9-15.9); WHITE BLOOD COUNT 16.1 K/mm3 (4.0-10.0)
[2024-04-15 07:02] LABS: POTASSIUM 4.5 mmol/L (3.5-5.1)
[2024-04-15 07:09] LABS: ALBUMIN 1.8 g/dl (3.4-5.0); CALCIUM 8.4 mg/dL (8.5-10.1)
[2024-04-15 07:10] LABS: BLOOD UREA NITROGEN 36.1 mg/dL (7-18); MAGNESIUM 1.9 mg/dL (1.8-2.4)
[2024-04-15 07:13] LABS: CREATININE 1.2 mg/dL (0.55-1.3)
[2024-04-15 07:15] LABS: BILIRUBIN,TOTAL 0.4 mg/dL (0.2-1); TOT PROT 5.7 g/dl (6.4-8.2)
[2024-04-15] MEDS: PANTOPRAZOLE SODIUM 40 MG VIAL IVPUSH SCH (09:15)
[2024-04-15] MEDS ORDERED: INSULIN (NOVOLOG) ASPART 100 UNITS/ML 10ML VIAL ONE (10:29)
[2024-04-15] MEDS: METOPROLOL TARTRATE 5 MG/5 ML VIAL IVPUSH ONE ×2 (10:42→16:55)
[2024-04-15] MEDS: FUROSEMIDE 40 MG/4 ML INJECTABLE VIAL IVPUSH SCH (14:08)
[2024-04-15] MEDS: MECLIZINE HCL 12.5 MG TABLET PO PRN (18:00)
[2024-04-15] MEDS: METOPROLOL TARTRATE 25 MG TABLET (FP) PO SCH (21:42)
[2024-04-16] MEDS: FUROSEMIDE 40 MG/4 ML INJECTABLE VIAL IVPUSH SCH (06:04)
[2024-04-16 06:43] LABS: BASO % 0.6 % (0-2.0); EOS % 0.6 % (0-4.5); HEMOGLOBIN 7.7 GM/dL (11.7-16.9); LYMPH % 12.7 % (8-40); MCH 25.1 pg (25.7-33.7); MCHC 31.9 g/dl (32.0-35.9); MEAN CELL VOLUME 78.6 fl (80-96); MEAN PLT VOLUME 7.4 fl (7.5-11.1); MONO % 5.7 % (3.8-10.2); NEUT % 80.4 % (42.8-82.8); PLATELET COUNT 388 10^3/uL (134-434); RBC 3.06 M/mm3 (4.00-5.60); RDW 18.3 % (11.9-15.9); WHITE BLOOD COUNT 13.2 K/mm3 (4.0-10.0)
[2024-04-16 06:57] LABS: POTASSIUM 3.9 mmol/L (3.5-5.1)
[2024-04-16 07:13] LABS: CALCIUM 8.2 mg/dL (8.5-10.1)
[2024-04-16 07:14] LABS: ALBUMIN 1.7 g/dl (3.4-5.0); BLOOD UREA NITROGEN 40.1 mg/dL (7-18); MAGNESIUM 1.8 mg/dL (1.8-2.4)
[2024-04-16 07:17] LABS: CREATININE 1.1 mg/dL (0.55-1.3)
[2024-04-16 07:19] LABS: TOT PROT 5.7 g/dl (6.4-8.2)
[2024-04-16 07:20] LABS: BILIRUBIN,TOTAL 0.5 mg/dL (0.2-1)
[2024-04-16] MEDS: LISINOPRIL 20 MG TABLET PO SCH (09:41)
[2024-04-16] MEDS: metroNIDAZOLE 500 MG TABLET PO SCH (16:05)
[2024-04-17] MEDS: SODIUM CHLORIDE 1,000 ML IV STA (06:38)
[2024-04-17 07:19] LABS: HEMATOCRIT 25.6 % (35.4-49); HEMOGLOBIN 8.3 GM/dL (11.7-16.9); MCH 25.3 pg (25.7-33.7); MCHC 32.2 g/dl (32.0-35.9); MEAN CELL VOLUME 78.5 fl (80-96); MEAN PLT VOLUME 7.5 fl (7.5-11.1); PLATELET COUNT 422 10^3/uL (134-434); RBC 3.26 M/mm3 (4.00-5.60); RDW 19.2 % (11.9-15.9); WHITE BLOOD COUNT 12.2 K/mm3 (4.0-10.0)
[2024-04-17] MEDS ORDERED: DEXTROSE 50%-WATER 25 GM/50 ML DISP.SYRIN IVPUSH PRN (07:23)
[2024-04-17 07:41] LABS: POTASSIUM 3.7 mmol/L (3.5-5.1)
[2024-04-17 07:53] LABS: ALBUMIN 1.9 g/dl (3.4-5.0); BLOOD UREA NITROGEN 47.6 mg/dL (7-18); CALCIUM 8.1 mg/dL (8.5-10.1)
[2024-04-17 07:57] LABS: CREATININE 1.2 mg/dL (0.55-1.3); PHOSPHOROUS 3.5 mg/dL (2.5-4.9)
[2024-04-17 07:58] LABS: BILIRUBIN,TOTAL 0.4 mg/dL (0.2-1); TOT PROT 5.9 g/dl (6.4-8.2)
[2024-04-17] MEDS ORDERED: ASPIRIN COATED 81 MG TABLET.EC PO SCH (10:00)
[2024-04-17] MEDS ORDERED: LIDOCAINE 5% TOPICAL PATCH TP SCH (10:00)
[2024-04-17] MEDS: SODIUM CHLORIDE 500 ML IV STA (10:20)
[2024-04-17] MEDS: LIDOCAINE 5% TOPICAL PATCH TP SCH (10:21)
[2024-04-17] MEDS: METOPROLOL TARTRATE 25 MG TABLET (FP) PO SCH (10:21)
[2024-04-17] MEDS: CLOPIDOGREL BISULFATE 75 MG TABLET (FP) PO SCH (10:21)
[2024-04-17] MEDS: LISINOPRIL 20 MG TABLET PO SCH (10:21)
[2024-04-17] MEDS: ENOXAPARIN NA (PORCINE) 40 MG/0.4 ML DISP.SYRIN SQ SCH (10:21)
[2024-04-17] MEDS: ASPIRIN 81 MG CHEWABLE TABLETS PO SCH (10:22)
[2024-04-17] MEDS: CEFAZOLIN SODIUM 2 GM in SODIUM CHLORIDE 100 ML IVPB SCH (10:22)
[2024-04-17] MEDS: PANTOPRAZOLE SODIUM 40 MG VIAL IVPUSH SCH (10:23)
[2024-04-17] MEDS: LIDOCAINE PATCH REMOVAL MC SCH ×2 (10:23→22:06)
[2024-04-17] MEDS: INSULIN ASPART SLIDING SCALE (NOVOLOG) 1 VIAL SQ SCH (13:42)
[2024-04-17] MEDS: metroNIDAZOLE 500 MG TABLET PO SCH (13:43)
[2024-04-17] MEDS: METHOCARBAMOL 500 MG TABLET PO SCH (13:43)
[2024-04-17] MEDS ORDERED: FUROSEMIDE 40 MG/4 ML INJECTABLE VIAL IVPUSH SCH (14:00)
[2024-04-17] MEDS: MUPIROCIN 2% TOPICAL OINTMENT FOR DECOLONIZATION NS SCH (17:25)
[2024-04-17] MEDS: ACETAMINOPHEN 325 MG TABLET (FP) PO PRN (20:31)
[2024-04-17] MEDS ORDERED: INSULIN ASPART SLIDING SCALE (NOVOLOG) 1 VIAL SQ ONE (22:00)
[2024-04-17] MEDS ORDERED: CHLORHEXIDINE GLUCONATE 4% CLEANSER FOR DECOLONIZATION TP SCH (22:00)
[2024-04-17] MEDS: PANTOPRAZOLE 40 MG TABLET PO SCH (22:01)
[2024-04-17] MEDS: SENNOSIDES 8.6MG TABLET (FP) PO SCH (22:01)
[2024-04-17] MEDS: MECLIZINE HCL 12.5 MG TABLET PO PRN (22:02)
[2024-04-17] MEDS: INSULIN (LEVEMIR) 100 UNITS/ML UNITS SQ SCH (22:04)
[2024-04-18 06:57] LABS: HEMATOCRIT 25.5 % (35.4-49); HEMOGLOBIN 8.2 GM/dL (11.7-16.9); MCH 25.5 pg (25.7-33.7); MEAN CELL VOLUME 79.5 fl (80-96); MEAN PLT VOLUME 7.6 fl (7.5-11.1); PLATELET COUNT 432 10^3/uL (134-434); RBC 3.21 M/mm3 (4.00-5.60); RDW 18.9 % (11.9-15.9); WHITE BLOOD COUNT 11.8 K/mm3 (4.0-10.0)
[2024-04-18 07:21] LABS: POTASSIUM 3.9 mmol/L (3.5-5.1)
[2024-04-18 07:34] LABS: CALCIUM 8.1 mg/dL (8.5-10.1)
[2024-04-18 07:35] LABS: ALBUMIN 1.8 g/dl (3.4-5.0); BLOOD UREA NITROGEN 45.6 mg/dL (7-18); MAGNESIUM 2.2 mg/dL (1.8-2.4)
[2024-04-18 07:38] LABS: PHOSPHOROUS 3.2 mg/dL (2.5-4.9)
[2024-04-18 07:39] LABS: BILIRUBIN,TOTAL 0.6 mg/dL (0.2-1); TOT PROT 5.8 g/dl (6.4-8.2)
[2024-04-18] MEDS ORDERED: FUROSEMIDE 40 MG/4 ML INJECTABLE VIAL IVPUSH SCH (10:00)
[2024-04-18] MEDS: CEFAZOLIN SODIUM 2 GM in SODIUM CHLORIDE 100 ML IVPB SCH (11:04)
[2024-04-18] MEDS ORDERED: INSULIN (LEVEMIR) 100 UNITS/ML UNITS SQ ONE (22:44)
[2024-04-19] MEDS ORDERED: INSULIN ASPART SLIDING SCALE (NOVOLOG) 1 VIAL SQ ONE (01:12)
[2024-04-19] MEDS: LEVALBUTEROL HCL 0.31 MG/3 ML VIAL.NEB IH ONE (01:23)
[2024-04-19] MEDS: FUROSEMIDE 40 MG/4 ML INJECTABLE VIAL IVPUSH ONE ×2 (02:13→05:45)
[2024-04-19 07:45] LABS: HEMOGLOBIN 8.9 GM/dL (11.7-16.9); MCH 24.8 pg (25.7-33.7); MCHC 30.7 g/dl (32.0-35.9); MEAN CELL VOLUME 80.7 fl (80-96); MEAN PLT VOLUME 7.8 fl (7.5-11.1); PLATELET COUNT 471 10^3/uL (134-434); RBC 3.59 M/mm3 (4.00-5.60); RDW 19.7 % (11.9-15.9); WHITE BLOOD COUNT 12.5 K/mm3 (4.0-10.0)
[2024-04-19 07:58] LABS: POTASSIUM 4.2 mmol/L (3.5-5.1)
[2024-04-19 08:00] LABS: ALBUMIN 2.1 g/dl (3.4-5.0); BLOOD UREA NITROGEN 39.8 mg/dL (7-18); CALCIUM 8.3 mg/dL (8.5-10.1); MAGNESIUM 1.9 mg/dL (1.8-2.4)
[2024-04-19 08:03] LABS: CREATININE 1.1 mg/dL (0.55-1.3); PHOSPHOROUS 3.5 mg/dL (2.5-4.9)
[2024-04-19 08:05] LABS: BILIRUBIN,TOTAL 0.4 mg/dL (0.2-1); TOT PROT 6.2 g/dl (6.4-8.2)
[2024-04-19] MEDS ORDERED: POLYETHYLENE GLYCOL (HEALTHYLAX) 3350 17 GM PACKET PO SCH ×2 (15:00→22:00)
[2024-04-19] MEDS: FUROSEMIDE 40 MG TABLET (FP) PO SCH (15:19)
[2024-04-19] MEDS: LORazepam 2 MG/ML SDV VIAL IVPUSH ONE (15:55)
[2024-04-19] MEDS: MAGNESIUM HYDROX 2400MG/30ML ORAL SUSPENSION 30 ML CUP PO ONE (16:42)
[2024-04-19] MEDS: DOCUSATE SODIUM 100 MG CAPSULE (FP) PO ONE (16:43)
[2024-04-20 08:33] LABS: HEMATOCRIT 27.2 % (35.4-49); HEMOGLOBIN 8.4 GM/dL (11.7-16.9); MCHC 30.8 g/dl (32.0-35.9); MEAN CELL VOLUME 81.2 fl (80-96); MEAN PLT VOLUME 7.7 fl (7.5-11.1); PLATELET COUNT 419 10^3/uL (134-434); RBC 3.35 M/mm3 (4.00-5.60); RDW 19.9 % (11.9-15.9); WHITE BLOOD COUNT 13.7 K/mm3 (4.0-10.0)
[2024-04-20 08:58] LABS: CHLORIDE 104 mmol/L (98-107); POTASSIUM 3.9 mmol/L (3.5-5.1); SODIUM 140 mmol/L (136-145)
[2024-04-20 09:12] LABS: CALCIUM 7.9 mg/dL (8.5-10.1); GLUCOSE,RANDOM 158 mg/dL (74-106)
[2024-04-20 09:13] LABS: ALBUMIN 1.9 g/dl (3.4-5.0); ANION GAP 10 mmol/L (4-13); BLOOD UREA NITROGEN 42.6 mg/dL (7-18); CO2 27 mmol/L (21-32); MAGNESIUM 1.9 mg/dL (1.8-2.4)
[2024-04-20 09:16] LABS: CREATININE 1.1 mg/dL (0.55-1.3); PHOSPHOROUS 3.4 mg/dL (2.5-4.9); SGOT/AST 14 U/L (15-37)
[2024-04-20 09:17] LABS: BILIRUBIN,TOTAL 0.6 mg/dL (0.2-1); TOT PROT 5.8 g/dl (6.4-8.2)
[2024-04-20 09:19] LABS: ALK PHOS 78 U/L (45-117)
[2024-04-20 09:20] LABS: SGPT/ALT < 6 U/L (13-61)
[2024-04-20] MEDS: MIDODRINE HCL 5 MG TABLET PO ONE (14:27)
[2024-04-20 14:38] VITALS: BP 92/55; PULSE 97; RESP 20; TEMP 97.5
== END 2024-04-20 14:55 | disposition short-term general hospital (02) | DRG 853 ==
LOC: JER 20:09 → JERBED 23:56 → J4S 04-03 01:20 → JICU 04-13 09:27 → J4W 04-16 23:29
PROVIDERS: ADMIT Internal Medicine; ATTEND Internal Medicine
PROC: 0Y6H0Z1 Detachment at Right Lower Leg, High, Open Approach (ICD-10-PCS; principal; 2024-04-10 15:30)
PROC: 05HD33Z Insertion of Infusion Device into Right Cephalic Vein, Percutaneous Approach (ICD-10-PCS; 2024-04-13)
PROC: B54MZZA Ultrasonography of Right Upper Extremity Veins, Guidance (ICD-10-PCS; 2024-04-13)
DX: A41.01 Sepsis due to Methicillin susceptible Staphylococcus aureus (principal); I21.4 Non-ST elevation (NSTEMI) myocardial infarction; I33.0 Acute and subacute infective endocarditis; J96.01 Acute respiratory failure with hypoxia; J69.0 Pneumonitis due to inhalation of food and vomit; E87.1 Hypo-osmolality and hyponatremia; M86.8X7 Other osteomyelitis, ankle and foot; L02.611 Cutaneous abscess of right foot; D62 Acute posthemorrhagic anemia; E78.5 Hyperlipidemia, unspecified; E11.51 Type 2 diabetes mellitus with diabetic peripheral angiopathy without gangrene; E83.42 Hypomagnesemia; E11.65 Type 2 diabetes mellitus with hyperglycemia; E87.5 Hyperkalemia; D50.9 Iron deficiency anemia, unspecified; M46.44 Discitis, unspecified, thoracic region; D75.838 Other thrombocytosis; N28.89 Other specified disorders of kidney and ureter; I11.0 Hypertensive heart disease with heart failure; I50.9 Heart failure, unspecified
CPT/HCPCS: 0241U-QW; 36415; 36430; 71045-TC-FY; 71046-TC-FY; 71275-TC; 72147-TC; 73610-TC-RT-FY; 73630-TC-RT-FY; 80048; 80053; 82550; 82570; 82728; 82962; 83036; 83540; 83550; 83605; 83735; 83880; 83930; 83935; 84100; 84300; 84443; 84466; 84484; 85025; 85027; 85045; 85610; 85651; 85730; 86140; 86850; 86900; 86901; 86922; 87040; 87186; 87635; 93005; 93010; 93306-TC; 94760; 97116-GP; 97161-GP; 99291; G0480; J0131; J0878; J1100; P9038; P9058; Q9967